=== PATIENT | female | born 1960 | race Caucasian/White ===

== ENCOUNTER → 2016-10-20 | Outpatient (CLI) | payer OTHER ==
[~2016-10-20] MED LIST: ISOVUE-370 76% 100ML VIAL (Q9967) As Ordered ONE
--- NOTE | 2016-10-20 19:16 | REP ---
CT study of the chest with IV contrast: History: Right upper lobe lung nodule. Report of chest x-ray from 10/09/2016 describes a right upper lobe lung nodule for which CT is recommended. This is 12 mm in diameter by report. CT contrast dose: 75 mL of Isovue-[address] findings: Overall, the lungs are somewhat hyperinflated. The CT study confirms the presence of a somewhat lobulated noncalcified right upper lobe pulmonary nodule. CT dimensions are 10 mm x 7 mm. There are appear to be air bronchograms along the inferior aspect of the nodule which is sometimes a feature of adenocarcinoma. There is mild biapical pleuroparenchymal scarring and there is bilateral upper lobe emphysematous change. No other pulmonary nodule is appreciated. There is no evidence of pleural or pericardial effusion. No hilar or mediastinal mass or adenopathy is seen. No adrenal lesion is observed on either side. There are clips in the gallbladder fossa. The visualized upper abdominal structures are otherwise unremarkable. No bony destructive lesion is appreciated. Impression: Noncalcified 10 mm right upper lobe pulmonary nodule. Consider PET/CT scanning and pulmonary medicine evaluation. Signed by Juan Canela MD 10/20/2016 07:29 P
== END ==
LOC: M RAD 16:44
PROVIDERS: ATTEND Surgery
DX: R91.1 Solitary pulmonary nodule (principal)

== ENCOUNTER → 2017-01-18 | Outpatient (CLI) | payer OTHER ==
--- NOTE | 2017-01-18 10:32 | REP ---
CT of the chest without IV contrast: Comparisons 10/20/2016 for follow up of air lobe lung nodule. On the study today there is a nodule in the right upper lobe on image 36 measuring 7 x 10 mm, unchanged in size shape or appearance. There are no other lung nodules or masses. There are no acute infiltrates or effusions. There are numerous tiny bulla throughout the lung hernandez bilaterally, predominately in the upper lobes, compatible with bullous emphysema, unchanged. There is no mediastinal adenopathy. The study is insensitive for hilar adenopathy in the absence of IV contrast. There is no axillary adenopathy. The unenhanced thoracic aorta is unremarkable. Cardiac size is normal. There is no pericardial effusion. The visualized upper abdominal contents are unremarkable. There is no adrenal mass. Impression: The patient's known right upper lobe lung nodule is stable and unchanged. There are findings compatible with bullous emphysema, predominately in the upper lobes with numerous tiny bulla throughout the lung hernandez. This is unchanged. Signed by Gurjit Frank MD 01/18/2017 10:24 A
== END ==
LOC: M RAD 09:03
PROVIDERS: ATTEND Internal Medicine Pulmonary Disease
DX: R91.1 Solitary pulmonary nodule (principal); J43.9 Emphysema, unspecified

== ENCOUNTER → 2017-02-14 | Outpatient (CLI) | payer OTHER ==
--- NOTE | 2017-02-19 10:15 | REP ---
PET/CT: HISTORY: Solitary pulmonary nodule right upper lobe. COMPARISONS: Comparison chest CT study January 18, 2017. TECHNIQUE: 50 minutes following the intravenous injection of a 9.4 mCi dose of F-18 FDG, three-dimensional PET scintigraphy is acquired from the skull base to the proximal thighs. Triplanar noncontrast CT scanning is acquired through the same anatomic range for attenuation correction, and image registration with scan parameters optimized to minimize radiation exposure to the patient. PET scintigraphy and CT datasets were fused and displayed on a workstation with multiplanar and projection display capability. PET/CT FINDINGS: The known right upper lobe nodule is not hypermetabolic. Maximum standard uptake value in this 10 mm right upper lobe pulmonary nodule is 0.4. No other abnormal hypermetabolic uptake is seen in the lungs. No hilar or mediastinal hypermetabolic uptake is appreciated. The head and neck soft tissues are unremarkable. In the abdomen and pelvis normal FDG distribution is seen. No abnormal hypermetabolic uptake is seen. IMPRESSION: The patient's known 10 mm right upper lobe nodule does not show hypermetabolic uptake. This does not completely exclude malignancy and continued follow-up is recommended. No other abnormal hypermetabolic uptake is seen. Signed by Juan Canela MD 02/19/2017 11:02 A
== END ==
LOC: M PLARAD 12:36
PROVIDERS: ATTEND Internal Medicine Pulmonary Disease
DX: R91.1 Solitary pulmonary nodule (principal)

== ENCOUNTER → 2017-08-06 | Outpatient (CLI) | payer OTHER ==
--- NOTE | 2017-08-06 13:54 | REP ---
CT of the chest without IV contrast for lung nodule. Followup: Comparisons are 03/18/2079 10/20/2016. The patient has a known right upper lobe lung nodule. The nodule is identified on the study today on image 36. Today this nodule measures 10 x 7 mm and is unchanged from both prior studies. This converts this lesion to a category 2A lesion with the probability of malignancy less than 1%. Follow-up annual chest CT is recommended. There are no other nodules or masses. There are no acute infiltrates or effusions. There is chronic stable biapical pleuroparenchymal scarring, unchanged. There are numerous small bulla throughout the lung hernandez, particularly in the upper lobes compatible with bullous emphysema, unchanged. There is no mediastinal adenopathy. No axillary adenopathy. The study is insensitive for hilar adenopathy in the absence of IV contrast. Thoracic aorta is unremarkable. Cardiac size normal. There is no pericardial effusion. Upper abdomen: There is no adrenal mass. The visualized portions of the unenhanced liver, pancreas and spleen are unremarkable. There are surgical clips in the gallbladder fossa. Impression: The known right upper lobe lung nodule is stable over the series of CT studies converting this nodule to a category 2A lesion. Annual follow-up chest CT is recommended. Bullous emphysema, unchanged. Signed by Gurjit Frank MD 08/06/2017 01:45 P
== END ==
LOC: M RAD 10:38
PROVIDERS: ATTEND Internal Medicine Pulmonary Disease
DX: R91.1 Solitary pulmonary nodule (principal); J43.9 Emphysema, unspecified

== ENCOUNTER → 2018-01-05 | Outpatient (CLI) | payer OTHER | LOC: M WUC 11:30 | DX: S29.012A Strain of muscle and tendon of back wall of thorax, initial encounter (principal); W18.30XA Fall on same level, unspecified, initial encounter; Y92.009 Unspecified place in unspecified non-institutional (private) residence as the place of occurrence of the external cause | CPT/HCPCS: 72072 ==

== ENCOUNTER → 2018-02-04 | Outpatient (CLI) | payer OTHER | LOC: M WUC 15:15 | DX: R05 Cough (principal); J84.9 Interstitial pulmonary disease, unspecified | CPT/HCPCS: 71046 ==

== ENCOUNTER → 2018-03-03 | Outpatient (REF) | payer OTHER | LOC: M LAB REF 17:39 | DX: R05 Cough (principal) | CPT/HCPCS: 87184 ==

== ENCOUNTER → 2018-03-17 | Outpatient (CLI) | payer OTHER ==
[2018-03-17 17:54] LABS: BASO % 0.3 % (0.0-1.0); EOS # 0.2 10^3/uL (0.0-0.50); EOS % 2.5 % (0.0-3.0); HEMATOCRIT 49.2 % (36.0-47.0); HEMOGLOBIN 15.4 g/dl (12.0-15.5); IMMATURE GRANULOCYTE % 0.3 % (0-3.0); LYMPH # 1.2 10^3/uL (1.5-4.5); LYMPH % 15.9 % (24.0-44.0); MEAN CORPUSCULAR HEMOGLOBIN 30.6 pg (27.0-33.0); MEAN CORPUSCULAR HGB CONC 31.3 g/dl (32.0-36.5); MEAN CORPUSCULAR VOLUME 97.8 fl (80.0-96.0); MONO # 0.5 10^3/uL (0.0-0.8); MONO % 6.2 % (0.0-5.0); NEUTROPHILS # 5.7 10^3/uL (1.8-7.7); NEUTROPHILS % 74.8 % (36.0-66.0); PLATELET COUNT, AUTOMATED 345 10^3/uL (150-450); RED BLOOD COUNT 5.03 10^6/uL (4.00-5.40); RED CELL DISTRIBUTION WIDTH 14.2 % (11.5-14.5); WHITE BLOOD COUNT 7.6 10^3/uL (4.0-10.0)
[2018-03-17 18:03] LABS: ALBUMIN 3.5 GM/DL (3.2-5.2); ALBUMIN/GLOBULIN RATIO 1.03 (1.00-1.93); ALKALINE PHOSPHATASE 101 U/L (45-117); ALT/SGPT 23 U/L (12-78); ANION GAP 5 MEQ/L (8-16); AST/SGOT 13 U/L (7-37); BILIRUBIN,TOTAL 0.2 MG/DL (0.2-1.0); BLOOD UREA NITROGEN 16 MG/DL (7-18); CALCIUM LEVEL 8.8 MG/DL (8.8-10.2); CARBON DIOXIDE LEVEL 33 MEQ/L (21-32); CHLORIDE LEVEL 105 MEQ/L (98-107); CHOLESTEROL LEVEL 240 MG/DL (<200); CHOLESTEROL RISK RATIO 4.363 (<5); CREATININE FOR GFR 0.59 MG/DL (0.55-1.30); GLOMERULAR FILTRATION RATE > 60.0 (>45); GLUCOSE, FASTING 94 MG/DL (70-100); HDL CHOLESTEROL 55 MG/DL (>40); LDL CHOLESTEROL 168.8 MG/DL (<100); NON-HDL-C 185 MG/DL; POTASSIUM SERUM 4.6 MEQ/L (3.5-5.1); SODIUM LEVEL 143 MEQ/L (136-145); TOTAL PROTEIN 6.9 GM/DL (6.4-8.2); TRIGLYCERIDES LEVEL 81 MG/DL (<150)
== END ==
LOC: M WUC 08:06
DX: I10 Essential (primary) hypertension (principal); E78.2 Mixed hyperlipidemia
CPT/HCPCS: 80053

== ENCOUNTER → 2018-09-04 | Outpatient (CLI) | payer OTHER | LOC: M RAD 12:27 | DX: R91.8 Other nonspecific abnormal finding of lung field (principal); J44.9 Chronic obstructive pulmonary disease, unspecified; J43.9 Emphysema, unspecified | CPT/HCPCS: 71250 ==

== ENCOUNTER → 2018-10-04 | Outpatient (CLI) | payer OTHER ==
--- NOTE | 2018-10-10 21:21 | ECHO ---
DATE OF PROCEDURE: 10/04/2018 REFERRING PHYSICIAN: Dr. Michelle Jeong INDICATION: Dyspnea. HEIGHT: 160 cm WEIGHT: 64.9 kg 2D MEASUREMENTS: LVOT: 1.7 cm Aortic root: 3.0 cm Left ventricle diastole: 4.1 cm Ventricular septum: 1.14 cm Posterior wall: 1.06 cm Inferior vena cava: 1.7 cm DOPPLER MEASUREMENTS: Aortic valve velocity: 120 cm/s LVOT velocity: 123 cm/s LVOT VTI: 28.6 cm Very mild mitral regurgitation. Mitral E velocity: 73.7 cm/s Mitral A velocity: 89.2 cm/s Mitral deceleration time: 255 ms Very mild mitral regurgitation. Estimated right ventricle systolic pressure: 32-37 mmHg assuming a right atrial pressure of 5-10 mmHg. Pulmonary artery systolic pressure: 36 mmHg by pulmonary acceleration time method. MITRAL ANNULAR TISSUE DOPPLER: E prime septal: 6.4 cm/s E prime lateral: 8.3 cm/s DESCRIPTION: Rhythm was sinus. This was a moderately technically difficult echocardiogram. No pericardial effusion. This was a 2D, M-mode, color flow Doppler and pulse wave Doppler examination and included mitral annular tissue Doppler. CONCLUSIONS: 1. Suggestive of mild elevation of pulmonary artery systolic pressure and estimated right ventricle systolic pressure. Normal right ventricle size. Mild right ventricle hypertrophy. Normal right ventricular (RV) systolic function. 2. Normal left ventricle internal dimensions and wall thickness. Normal regional left ventricular (LV) wall motion and wall thickening. Normal LV systolic function. Left ventricular ejection fraction (LVEF) 70-75% by visual estimate. Grade 1 LV diastolic dysfunction. 3. Otherwise normal appearing echocardiogram Doppler.
== END ==
LOC: M CARPUL 08:10
PROVIDERS: ATTEND Internal Medicine Pulmonary Disease
DX: R06.00 Dyspnea, unspecified (principal)

== ENCOUNTER → 2018-12-13 | Outpatient (CLI) | payer OTHER ==
--- NOTE | 2018-12-13 11:13 | REP ---
Clinical: Acute upper respiratory tract infection . Comparison: 02/04/2018 . Technique: PA and lateral. Findings: The mediastinum and cardiac silhouette are normal. The lung hernandez are clear and without acute consolidation, effusion, or pneumothorax. The skeletal structures are intact and normal. Impression: 1. No focal consolidation or effusion. Electronically Signed by Prashanth Carranza MD 12/13/2018 11:05 A
== END ==
LOC: M WUC 10:36
PROVIDERS: ATTEND Internal Medicine Pulmonary Disease
DX: J06.9 Acute upper respiratory infection, unspecified (principal)

== ENCOUNTER → 2019-02-04 | Outpatient (REF) | payer OTHER ==
[2019-02-04 19:44] LABS: ALBUMIN 3.1 GM/DL (3.2-5.2); ALT/SGPT 26 U/L (12-78); BILIRUBIN,TOTAL 0.2 MG/DL (0.2-1.0); BLOOD UREA NITROGEN 16 MG/DL (7-18); CALCIUM LEVEL 8.5 MG/DL (8.8-10.2); CARBON DIOXIDE LEVEL 36 MEQ/L (21-32); CHLORIDE LEVEL 100 MEQ/L (98-107); CREATININE FOR GFR 0.55 MG/DL (0.55-1.30); FREE T4 0.83 NG/DL (0.76-1.46); GLOMERULAR FILTRATION RATE > 60.0 (>45); GLUCOSE, FASTING 83 MG/DL (70-100); POTASSIUM SERUM 3.8 MEQ/L (3.5-5.1); SODIUM LEVEL 142 MEQ/L (136-145); TOTAL PROTEIN 6.4 GM/DL (6.4-8.2)
[2019-02-04 19:46] LABS: PTH INTACT 62.8 PG/ML (18.5-88.0)
== END ==
LOC: M SFHCPLAZ 15:52
PROVIDERS: ATTEND Physician Assistant Medical
DX: E78.2 Mixed hyperlipidemia (principal); E55.9 Vitamin D deficiency, unspecified; Z83.49 Family history of other endocrine, nutritional and metabolic diseases; Z12.11 Encounter for screening for malignant neoplasm of colon

== ENCOUNTER → 2019-02-16 | Outpatient (CLI) | payer OTHER ==
--- NOTE | 2019-02-17 01:12 | REP ---
Clinical: Cough and dyspnea . Comparison: 12/13/2018 . Technique: PA and lateral. Findings: The mediastinum and cardiac silhouette are normal. The lung hernandez are clear and without acute consolidation, effusion, or pneumothorax. The skeletal structures are intact and normal. Impression: 1. No acute cardiopulmonary process. Electronically Signed by Prashanth Carranza MD 02/17/2019 01:03 A
== END ==
LOC: M WUC 08:06
PROVIDERS: ATTEND Internal Medicine Pulmonary Disease
DX: R06.00 Dyspnea, unspecified (principal)

== ENCOUNTER → 2019-06-06 | Outpatient (REF) | payer OTHER ==
[2019-06-06 12:13] LABS: BLOOD UREA NITROGEN 12 MG/DL (7-18); GLUCOSE, FASTING 104 MG/DL (70-100)
[2019-06-06 12:14] LABS: ALBUMIN 3.5 GM/DL (3.2-5.2); ALT/SGPT 26 U/L (12-78); BILIRUBIN,TOTAL 0.4 MG/DL (0.2-1.0); CARBON DIOXIDE LEVEL 35 MEQ/L (21-32); CHLORIDE LEVEL 106 MEQ/L (98-107); CHOLESTEROL LEVEL 244 MG/DL (<200); CHOLESTEROL RISK RATIO 3.588 (<5); CREATININE FOR GFR 0.59 MG/DL (0.55-1.30); GLOMERULAR FILTRATION RATE > 60.0 (>45); HDL CHOLESTEROL 68 MG/DL (>40); LDL CHOLESTEROL 155 MG/DL (<100); NON-HDL-C 176 MG/DL; POTASSIUM SERUM 4.2 MEQ/L (3.5-5.1); SODIUM LEVEL 143 MEQ/L (136-145); TOTAL PROTEIN 6.9 GM/DL (6.4-8.2); TRIGLYCERIDES LEVEL 105 MG/DL (<150)
== END ==
LOC: M SFHCPLAZ 08:57
PROVIDERS: ATTEND Physician Assistant Medical
DX: E78.2 Mixed hyperlipidemia (principal)

== ENCOUNTER → 2019-09-05 | Outpatient (CLI) | payer OTHER ==
--- NOTE | 2019-09-05 13:26 | REP ---
CT chest with IV contrast: History: Solitary pulmonary nodule. Comparison chest CTs are reviewed, the most recent which is from September 04, 2018. The most remote is dated October 20, 2016. CT findings: A 1.1 cm solid stable right upper lobe nodule is visible on page 40 of 114 in series 201 of today's study. This is unchanged dating back to October of 2016 and is consistent with a benign granulomatous nodule. There is a linear area of scarring in the left upper lobe again noted which is unchanged since the study dated June 12, 2018. No progressive change is seen here. There are bilateral apical pleuroparenchymal scarring changes and there are bilateral upper lobe emphysematous changes which are stable as well. No new pulmonary nodule or mass lesion is seen. No new infiltrate is observed. Minimal vascular calcification is observed. No hilar or mediastinal mass or adenopathy is seen. No pleural or pericardial effusion is seen. There is no evidence of adrenal abnormality. No bony destructive lesion is seen. Impression: Stable chest CT findings. Stable area of linear fibrosis left upper lobe. Benign stable 1.1 cm right upper lobe nodule. Emphysematous changes. Electronically Signed by Juan Canela MD 09/05/2019 02:13 P
== END ==
LOC: M RAD 09:55
PROVIDERS: ATTEND Physician Assistant Medical
DX: R91.1 Solitary pulmonary nodule (principal)
CPT/HCPCS: 71260; Q9967

== ENCOUNTER → 2019-10-01 | Outpatient (REF) | payer MEDICAID, OTHER ==
[2019-10-01 10:21] LABS: ALBUMIN 3.8 GM/DL (3.2-5.2); ALT/SGPT 22 U/L (12-78); BILIRUBIN,TOTAL 0.3 MG/DL (0.2-1.0); BLOOD UREA NITROGEN 17 MG/DL (7-18); CALCIUM LEVEL 9.3 MG/DL (8.8-10.2); CARBON DIOXIDE LEVEL 35 MEQ/L (21-32); CHLORIDE LEVEL 100 MEQ/L (98-107); CREATININE FOR GFR 0.59 MG/DL (0.55-1.30); GLOMERULAR FILTRATION RATE > 60.0 (>45); GLUCOSE, FASTING 100 MG/DL (70-100); POTASSIUM SERUM 4.1 MEQ/L (3.5-5.1); SODIUM LEVEL 139 MEQ/L (136-145); TOTAL PROTEIN 7.6 GM/DL (6.4-8.2)
[2019-10-01 13:24] LABS: PTH INTACT 51.2 PG/ML (18.5-88.0)
== END ==
LOC: M SFHCPLAZ 08:27
PROVIDERS: ATTEND Physician Assistant Medical
DX: E55.9 Vitamin D deficiency, unspecified (principal)

== ENCOUNTER → 2019-12-09 | Outpatient (CLI) | payer OTHER ==
[2019-12-09 07:21] LABS: ALBUMIN 3.5 GM/DL (3.2-5.2); ALT/SGPT 18 U/L (12-78); BILIRUBIN,TOTAL 0.2 MG/DL (0.2-1.0); BLOOD UREA NITROGEN 20 MG/DL (7-18); CALCIUM LEVEL 8.8 MG/DL (8.8-10.2); CARBON DIOXIDE LEVEL 34 MEQ/L (21-32); CHLORIDE LEVEL 105 MEQ/L (98-107); CREATININE FOR GFR 0.65 MG/DL (0.55-1.30); GLOMERULAR FILTRATION RATE > 60.0 (>45); GLUCOSE, FASTING 106 MG/DL (70-100); POTASSIUM SERUM 4.4 MEQ/L (3.5-5.1); SODIUM LEVEL 142 MEQ/L (136-145); TOTAL PROTEIN 6.8 GM/DL (6.4-8.2)
[2019-12-09 07:23] LABS: HEMOGLOBIN A1c 6.6 %
== END ==
LOC: M LAB 06:16
PROVIDERS: ATTEND Ophthalmology
DX: H53.8 Other visual disturbances (principal)

== ENCOUNTER → 2020-03-02 | Outpatient (REF) | payer OTHER | LOC: M LAB REF 16:43 | PROVIDERS: ATTEND Internal Medicine Pulmonary Disease | DX: J47.9 Bronchiectasis, uncomplicated (principal) ==

== ENCOUNTER 2020-03-24 08:18 | Emergency (ER) | payer MEDICAID, OTHER ==
[~2020-03-24] VITALS: Ht 160 cm; Wt 67.3 kg
[2020-03-24] MEDS ORDERED: LOSA50TA88 PO (08:37)
[2020-03-24] MEDS ORDERED: ALBU83IN INH (08:37)
[2020-03-24] MEDS ORDERED: PERF20NE2 INH (08:37)
[2020-03-24] MEDS ORDERED: ALBU8.5H INH (08:37)
[2020-03-24] MEDS ORDERED: SULF1TAB93 PO (08:37)
[2020-03-24] MEDS ORDERED: DILT30TA PO (08:37)
[2020-03-24] MEDS ORDERED: XALA0.007 OU (08:37)
[2020-03-24] MEDS ORDERED: FLUTISP INH (08:37)
[2020-03-24] MEDS ORDERED: SPIR12.9 INH (08:37)
[2020-03-24] MEDS ORDERED: AZIT-12 PO (08:37)
[2020-03-24] MEDS ORDERED: BUDE2SUS3 INH (08:37)
[2020-03-24] MEDS ORDERED: HYDR12.55 PO (08:37)
[2020-03-24] MEDS ORDERED: methylPREDNISolone INJ 125 MG/2 ML VIAL (J2930) IV ONE (09:00)
[2020-03-24] MEDS: COMBIVENT RESPIMAT 100-20MCG INHALER 4GM INH SCH ×3 (09:20→09:40)
[2020-03-24 09:21] LABS: BASO % 0.2 % (0.0-1.0); EOS % 0.1 % (0.0-3.0); HEMATOCRIT 46.6 % (36.0-47.0); LYMPH # 1.4 10^3/uL (1.5-5.0); LYMPH % 15.9 % (24.0-44.0); MEAN CORPUSCULAR HEMOGLOBIN 31.4 pg (27.0-33.0); MEAN CORPUSCULAR HGB CONC 32.2 g/dl (32.0-36.5); MEAN CORPUSCULAR VOLUME 97.5 fl (80.0-96.0); MONO # 0.4 10^3/uL (0.0-0.8); MONO % 4.5 % (0.0-5.0); NEUTROPHILS # 6.9 10^3/uL (1.5-8.5); NEUTROPHILS % 79.2 % (36.0-66.0); PLATELET COUNT, AUTOMATED 247 10^3/uL (150-450); RED BLOOD COUNT 4.78 10^6/uL (4.00-5.40); WHITE BLOOD COUNT 8.7 10^3/uL (4.0-10.0)
--- NOTE | 2020-03-24 09:41 | REP ---
CHEST, SINGLE VIEW: Single view of the chest is performed. There is no acute infiltrate. There is mild biapical and pleural parenchymal scarring. There is a stable right upper lobe nodule. The heart is normal in size and the mediastinal silhouette is unremarkable. IMPRESSION: Stable chronic findings with no acute infiltrate. Electronically Signed by Gurjit Saab MD 03/25/2020 10:26 A
[2020-03-24 10:02] LABS: ALBUMIN 3.3 GM/DL (3.2-5.2); ALT/SGPT 22 U/L (12-78); BILIRUBIN,DIRECT < 0.1 MG/DL (0.0-0.2); BILIRUBIN,TOTAL 0.2 MG/DL (0.2-1.0); NT-PRO BNP 118 PG/ML (<125); TOTAL PROTEIN 6.9 GM/DL (6.4-8.2)
[2020-03-24 10:30] LABS: BLOOD UREA NITROGEN 11 MG/DL (7-18); CALCIUM LEVEL 9.6 MG/DL (8.8-10.2); CARBON DIOXIDE LEVEL 38 MEQ/L (21-32); CHLORIDE LEVEL 94 MEQ/L (98-107); CREATININE FOR GFR 0.75 MG/DL (0.55-1.30); GLOMERULAR FILTRATION RATE > 60.0 (>45); GLUCOSE, FASTING 109 MG/DL (70-100); POTASSIUM SERUM 3.5 MEQ/L (3.5-5.1); SODIUM LEVEL 136 MEQ/L (136-145)
[2020-03-24 10:50] VITALS: O2SAT 97
[2020-03-24] MEDS ORDERED: PRED10TA2 PO (11:19)
[2020-03-24 11:27] VITALS: BP 131/61
--- NOTE | 2020-03-25 21:16 | ECGEPIP ---
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
== END 2020-03-24 11:32 | disposition home or self-care (01) ==
LOC: M ED 08:18
DX: J44.1 Chronic obstructive pulmonary disease with (acute) exacerbation (principal); I10 Essential (primary) hypertension; I45.10 Unspecified right bundle-branch block; F17.200 Nicotine dependence, unspecified, uncomplicated; R91.1 Solitary pulmonary nodule; Z79.51 Long term (current) use of inhaled steroids; Z79.899 Other long term (current) drug therapy; Z88.5 Allergy status to narcotic agent
CPT/HCPCS: 36600; 71045; 80048; 80076; 82803; 83605; 83880; 84443; 85025; 87040; 93005; 93041; 94640; 94760; 96374; 99285; J2930

== ENCOUNTER → 2020-04-23 | Outpatient (REF) | payer OTHER, MEDICAID ==
[~2020-04-23] MED LIST changes: +ALBU8.5H INH; +ALBU83IN INH; +AZIT-12 PO; +BUDE2SUS3 INH; +BUPR150T5; +COMBAER6; +DILT30TA PO; +FLUTISP INH; +HYDR12.55 PO; -ISOVUE-370 76% 100ML VIAL (Q9967) As Ordered ONE; +LORAPOW30; +LOSA50TA5 PO; +LOSA50TA88 PO; +PERF20NE2 INH; +PRED10TA2 PO; +PRED20TA PO; +SPIR12.9 INH; +SULF1TAB93 PO; +VITA50005 PO; +XALA0.007 OU
[2020-04-23 11:20] LABS: BASO % 0.2 % (0.0-1.0); EOS % 0.2 % (0.0-3.0); HEMATOCRIT 46.3 % (36.0-47.0); HEMOGLOBIN 14.6 g/dl (12.0-15.5); LYMPH # 1.7 10^3/uL (1.5-5.0); LYMPH % 21.1 % (24.0-44.0); MEAN CORPUSCULAR HEMOGLOBIN 30.8 pg (27.0-33.0); MEAN CORPUSCULAR HGB CONC 31.5 g/dl (32.0-36.5); MEAN CORPUSCULAR VOLUME 97.7 fl (80.0-96.0); MONO # 0.5 10^3/uL (0.0-0.8); MONO % 6.7 % (0.0-5.0); NEUTROPHILS # 5.8 10^3/uL (1.5-8.5); NEUTROPHILS % 71.6 % (36.0-66.0); PLATELET COUNT, AUTOMATED 356 10^3/uL (150-450); RED BLOOD COUNT 4.74 10^6/uL (4.00-5.40); WHITE BLOOD COUNT 8.1 10^3/uL (4.0-10.0)
[2020-04-23 11:51] LABS: ALBUMIN 3.5 GM/DL (3.2-5.2); ALT/SGPT 24 U/L (12-78); BILIRUBIN,TOTAL 0.2 MG/DL (0.2-1.0); BLOOD UREA NITROGEN 15 MG/DL (7-18); CALCIUM LEVEL 9.4 MG/DL (8.8-10.2); CARBON DIOXIDE LEVEL 39 MEQ/L (21-32); CHLORIDE LEVEL 94 MEQ/L (98-107); CHOLESTEROL LEVEL 269 MG/DL (<200); CHOLESTEROL RISK RATIO 4.014 (<5); CPK CREATINE PHOSPHOKINASE 91 U/L (26-192); GLOMERULAR FILTRATION RATE > 60.0 (>45); GLUCOSE, FASTING 107 MG/DL (70-100); HDL CHOLESTEROL 67 MG/DL (>40); LDL CHOLESTEROL 189 MG/DL (<100); NON-HDL-C 202 MG/DL; POTASSIUM SERUM 3.5 MEQ/L (3.5-5.1); SODIUM LEVEL 136 MEQ/L (136-145); TRIGLYCERIDES LEVEL 67 MG/DL (<150)
[2020-04-23 11:52] LABS: TOTAL 25(OH) VITAMIN D 49.7 NG/ML (30.0-100.0)
[2020-04-23 11:53] LABS: PTH INTACT 48.3 PG/ML (18.5-88.0)
== END ==
LOC: M PLALAB 08:53
PROVIDERS: ATTEND Physician Assistant Medical
DX: I10 Essential (primary) hypertension (principal); E78.2 Mixed hyperlipidemia; E55.9 Vitamin D deficiency, unspecified

== ENCOUNTER 2020-06-22 01:32 | Emergency (ER) | payer OTHER, MEDICAID ==
[~2020-06-22] VITALS: Ht 160 cm; Wt 69.1 kg
[~2020-06-22 01:32] MED LIST changes: -BUPR150T5; -COMBAER6; -LORAPOW30; -LOSA50TA5 PO; -PRED20TA PO; -VITA50005 PO
[2020-06-22 02:09] LABS: BASO % 0.2 % (0.0-1.0); EOS % 0.1 % (0.0-3.0); HEMATOCRIT 42.2 % (36.0-47.0); HEMOGLOBIN 13.5 g/dl (12.0-15.5); LYMPH # 2.8 10^3/uL (1.5-5.0); LYMPH % 25.4 % (24.0-44.0); MEAN CORPUSCULAR HEMOGLOBIN 31.1 pg (27.0-33.0); MEAN CORPUSCULAR VOLUME 97.2 fl (80.0-96.0); MONO # 0.7 10^3/uL (0.0-0.8); MONO % 6.7 % (0.0-5.0); NEUTROPHILS # 7.4 10^3/uL (1.5-8.5); NEUTROPHILS % 67.3 % (36.0-66.0); PLATELET COUNT, AUTOMATED 337 10^3/uL (150-450); RED BLOOD COUNT 4.34 10^6/uL (4.00-5.40); WHITE BLOOD COUNT 10.9 10^3/uL (4.0-10.0)
[2020-06-22] MEDS ORDERED: VITA50005 PO (02:10)
--- NOTE | 2020-06-22 02:38 | REPVR ---
PROCEDURE INFORMATION: Exam: XR Chest, 1 View Exam date and time: 06/22/2020 2:12 AM Age: 60 years old Clinical indication: Cough and dyspnea TECHNIQUE: Imaging protocol: XR of the chest Views: 1 view. COMPARISON: 1. CR PORTABLE CHEST X-RAY 03/24/2020 9:[address] Chest with contrast 09/05/2019 10:29:32 AM FINDINGS: Lungs: There is a 1.1 cm pulmonary nodule in the right upper lobe, which is stable compared to the prior CT chest on 09/05/2019 and chest x-ray on 03/24/2020. Pleural space: Unremarkable. No pleural effusion or pneumothorax is identified. Heart/Mediastinum: Unremarkable. No cardiomegaly. Bones/joints: Unremarkable. IMPRESSION: 1. No radiographic evidence for an acute cardiopulmonary process. 2. 1.1 cm pulmonary nodule in the right upper lobe, which is stable compared to the prior CT chest on 09/05/2019 and chest x-ray on 03/24/2020. Electronically signed by: Alex Darnell On 06/22/2020 02:37:23 AM
[2020-06-22 02:41] LABS: ALBUMIN 3.5 GM/DL (3.2-5.2); ALT/SGPT 39 U/L (12-78); BILIRUBIN,DIRECT < 0.1 MG/DL (0.0-0.2); BILIRUBIN,TOTAL 0.2 MG/DL (0.2-1.0); BLOOD UREA NITROGEN 21 MG/DL (7-18); CALCIUM LEVEL 9.3 MG/DL (8.8-10.2); CARBON DIOXIDE LEVEL 41 MEQ/L (21-32); CHLORIDE LEVEL 94 MEQ/L (98-107); CK-MB VALUE MASS 2.3 NG/ML (<3.6); CPK CREATINE PHOSPHOKINASE 62 U/L (26-192); CREATININE FOR GFR 0.62 MG/DL (0.55-1.30); GLOMERULAR FILTRATION RATE > 60.0 (>45); GLUCOSE, FASTING 98 MG/DL (70-100); MB/CK RELATIVE INDEX 3.71 (< OR =4); POTASSIUM SERUM 3.6 MEQ/L (3.5-5.1); SODIUM LEVEL 136 MEQ/L (136-145); TOTAL PROTEIN 6.9 GM/DL (6.4-8.2); TROPONIN I < 0.02 NG/ML (< 0.10)
[2020-06-22] MEDS ORDERED: methylPREDNISolone 125MG 2ML VIAL IV ONE (03:15)
[2020-06-22] MEDS ORDERED: PRED10TA2 PO (03:18)
[2020-06-22 03:29] VITALS: BP 154/67
--- NOTE | 2020-06-23 12:41 | ED PDOC ---
Post-Departure Follow-Up cxr faxed to abimael oconnor for fu Roxy Dowell MD Jun 23, 2020 12:40
--- NOTE | 2020-06-28 10:44 | ECGEPIP ---
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
== END 2020-06-22 03:30 | disposition home or self-care (01) ==
LOC: M ED 01:32
DX: J44.1 Chronic obstructive pulmonary disease with (acute) exacerbation (principal); R91.1 Solitary pulmonary nodule; R94.31 Abnormal electrocardiogram [ECG] [EKG]; I25.10 Atherosclerotic heart disease of native coronary artery without angina pectoris; I11.9 Hypertensive heart disease without heart failure; F17.210 Nicotine dependence, cigarettes, uncomplicated; Z88.6 Allergy status to analgesic agent; Z79.51 Long term (current) use of inhaled steroids; Z79.899 Other long term (current) drug therapy
CPT/HCPCS: 71045; 80048; 80076; 82550; 82553; 85025; 93005; 93041; 94760; 96374; 99284; J2930

== ENCOUNTER 2020-06-25 19:36 | Emergency (ER) | payer OTHER, MEDICAID ==
[~2020-06-25] VITALS: Ht 160 cm; Wt 69.1 kg
[~2020-06-25 19:36] MED LIST changes: +VITA50005 PO
[2020-06-25] MEDS ORDERED: COMBAER6 (19:55)
[2020-06-25 20:20] LABS: BASO % 0.2 % (0.0-1.0); HEMATOCRIT 43.7 % (36.0-47.0); HEMOGLOBIN 13.8 g/dl (12.0-15.5); LYMPH # 1.7 10^3/uL (1.5-5.0); LYMPH % 16.7 % (24.0-44.0); MEAN CORPUSCULAR HEMOGLOBIN 30.8 pg (27.0-33.0); MEAN CORPUSCULAR HGB CONC 31.6 g/dl (32.0-36.5); MEAN CORPUSCULAR VOLUME 97.5 fl (80.0-96.0); MONO # 0.7 10^3/uL (0.0-0.8); MONO % 6.3 % (0.0-5.0); NEUTROPHILS # 7.9 10^3/uL (1.5-8.5); PLATELET COUNT, AUTOMATED 358 10^3/uL (150-450); RED BLOOD COUNT 4.48 10^6/uL (4.00-5.40); WHITE BLOOD COUNT 10.4 10^3/uL (4.0-10.0)
[2020-06-25] MEDS: IPRATROPIUM 0.5MG/ALBUTEROL 2.5MG INH SOL UD 3ML (DUONEB) NEB PRN ×3 (20:28→21:55)
[2020-06-25 20:50] LABS: BLOOD UREA NITROGEN 21 MG/DL (7-18); CALCIUM LEVEL 9.8 MG/DL (8.8-10.2); CARBON DIOXIDE LEVEL 41 MEQ/L (21-32); CHLORIDE LEVEL 96 MEQ/L (98-107); CREATININE FOR GFR 0.62 MG/DL (0.55-1.30); GLOMERULAR FILTRATION RATE > 60.0 (>45); GLUCOSE, FASTING 114 MG/DL (70-100); POTASSIUM SERUM 4.1 MEQ/L (3.5-5.1); SODIUM LEVEL 138 MEQ/L (136-145)
[2020-06-25] MEDS ORDERED: dexameTHASONE 20MG/5ML VIAL (J1100 PER 1MG) IV ONE (21:00)
[2020-06-25 22:29] VITALS: O2SAT 96
[2020-06-25 23:29] VITALS: BP 144/85
--- NOTE | 2020-07-14 07:51 | REP ---
PORTABLE CHEST X-RAY: CLINICAL: Shortness of breath. COMPARISON: 06/22/20 FINDINGS: Mediastinum and cardiac silhouette are normal. Lung hernandez are clear. No focal consolidation, effusion or pneumothorax. Skeletal structures are intact. IMPRESSION: No acute cardiopulmonary process or focal consolidation. MTDD
== END 2020-06-25 23:31 | disposition home or self-care (01) ==
LOC: M ED 19:36
DX: J44.1 Chronic obstructive pulmonary disease with (acute) exacerbation (principal); J96.11 Chronic respiratory failure with hypoxia; Z99.81 Dependence on supplemental oxygen; I10 Essential (primary) hypertension; E78.5 Hyperlipidemia, unspecified; R91.1 Solitary pulmonary nodule; G47.30 Sleep apnea, unspecified; F17.210 Nicotine dependence, cigarettes, uncomplicated
CPT/HCPCS: 36415; 71045; 80048; 83605; 85025; 87040; 87077; 87186; 96374; 99284; J1100

== ENCOUNTER 2020-07-04 20:50 | Emergency (ER) | payer OTHER, MEDICAID ==
[~2020-07-04] VITALS: Ht 160 cm; Wt 69.1 kg
[~2020-07-04 20:50] MED LIST changes: +COMBAER6
[2020-07-04] MEDS ORDERED: COMBIVENT RESPIMAT 100-20MCG INHALER 4GM INH ONE (21:30)
[2020-07-04 21:39] LABS: ABG BASE EXCESS 8.6 (-2.0-2.0); ABG HCO3 35.5 MEQ/L (22.0-26.0); ABG O2 SATURATION 97.8 % (95.0-99.0); ABG PARTIAL PRESSURE CO2 58.2 mmHg (35.0-45.0); ABG PARTIAL PRESSURE O2 100.4 mmHg (75.0-100.0); ABG STANDARD HCO3 32.4 MEQ/L (22.0-26.0); ABG TOTAL CO2 37.3 MEQ/L (23.0-31.0); ABG pH (ARTERIAL) 7.403 UNITS (7.350-7.450)
[2020-07-04 21:44] LABS: BASO % 0.1 % (0.0-1.0); EOS % 0.1 % (0.0-3.0); HEMOGLOBIN 12.8 g/dl (12.0-15.5); LYMPH # 2.5 10^3/uL (1.5-5.0); LYMPH % 19.2 % (24.0-44.0); MEAN CORPUSCULAR HEMOGLOBIN 31.1 pg (27.0-33.0); MEAN CORPUSCULAR VOLUME 97.1 fl (80.0-96.0); MONO # 0.7 10^3/uL (0.0-0.8); NEUTROPHILS # 9.9 10^3/uL (1.5-8.5); PLATELET COUNT, AUTOMATED 254 10^3/uL (150-450); RED BLOOD COUNT 4.12 10^6/uL (4.00-5.40); WHITE BLOOD COUNT 13.2 10^3/uL (4.0-10.0)
[2020-07-04 21:53] LABS: INR 0.83; PROTHROMBIN TIME 11.5 SECONDS (12.5-14.3)
[2020-07-04 22:18] LABS: ALBUMIN 3.3 GM/DL (3.2-5.2); ALT/SGPT 30 U/L (12-78); BILIRUBIN,DIRECT < 0.1 MG/DL (0.0-0.2); BLOOD UREA NITROGEN 25 MG/DL (7-18); CALCIUM LEVEL 9.4 MG/DL (8.8-10.2); CARBON DIOXIDE LEVEL 40 MEQ/L (21-32); CHLORIDE LEVEL 95 MEQ/L (98-107); CK-MB VALUE MASS 2.6 NG/ML (<3.6); CPK CREATINE PHOSPHOKINASE 68 U/L (26-192); GLOMERULAR FILTRATION RATE > 60.0 (>45); GLUCOSE, FASTING 107 MG/DL (70-100); MB/CK RELATIVE INDEX 3.82 (< OR =4); NT-PRO BNP 109 PG/ML (<125); SODIUM LEVEL 135 MEQ/L (136-145); TOTAL PROTEIN 6.7 GM/DL (6.4-8.2); TROPONIN I < 0.02 NG/ML (< 0.10)
[2020-07-04 23:09] LABS: BILIRUBIN,TOTAL 0.2 MG/DL (0.2-1.0)
--- NOTE | 2020-07-04 23:28 | REPVR ---
PROCEDURE INFORMATION: Exam: XR Chest, 2 Views Exam date and time: 07/04/2020 11:11 PM Age: 60 years old Clinical indication: Cough and dyspnea; Additional info: Dyspnea/cough TECHNIQUE: Imaging protocol: XR of the chest Views: 2 views. COMPARISON: CR Chest, 1 view 06/25/2020 8:59 PM FINDINGS: Lungs: Degree of inflation of the lungs is normal. No evidence of pulmonary edema. No focal airspace process. No concerning parenchymal lung mass. Pleural space: No pleural effusion or pneumothorax. Heart/Mediastinum: Cardiac silhouette appears normal. No mediastinal adenopathy or hilar mass. Bones/joints: Osseous structures show no acute or concerning abnormality. IMPRESSION: No active or focal cardiopulmonary process. Electronically signed by: Grabiel Rowell On 07/04/2020 23:27:33 PM
[2020-07-04] MEDS ORDERED: IPRATROPIUM 0.5MG/ALBUTEROL 2.5MG INH SOL UD 3ML (DUONEB) NEB ONE (23:30)
[2020-07-05] MEDS ORDERED: PRED20TA PO (00:10)
[2020-07-05 00:36] VITALS: BP 125/70
--- NOTE | 2020-07-05 20:24 | ECGEPIP ---
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
[2020-07-06] MEDS ORDERED: LOSA50TA5 PO (14:47)
== END 2020-07-05 00:36 | disposition home or self-care (01) ==
LOC: M ED 20:50
DX: J44.1 Chronic obstructive pulmonary disease with (acute) exacerbation (principal); I10 Essential (primary) hypertension; E78.5 Hyperlipidemia, unspecified; E55.9 Vitamin D deficiency, unspecified; M81.0 Age-related osteoporosis without current pathological fracture; H40.9 Unspecified glaucoma; J30.2 Other seasonal allergic rhinitis; Z88.6 Allergy status to analgesic agent; Z79.51 Long term (current) use of inhaled steroids; Z79.899 Other long term (current) drug therapy

== ENCOUNTER 2020-07-06 14:30 | Emergency (ER) | payer MEDICAID, OTHER ==
[~2020-07-06] VITALS: Ht 160 cm; Wt 72.4 kg
[~2020-07-06 14:30] MED LIST changes: +PRED20TA PO
[2020-07-06] MEDS ORDERED: LOSA50TA5 PO (14:47)
[2020-07-06 15:04] LABS: ABG BASE EXCESS 5.7 (-2.0-2.0); ABG HCO3 32.1 MEQ/L (22.0-26.0); ABG O2 SATURATION 98.3 % (95.0-99.0); ABG PARTIAL PRESSURE CO2 53.7 mmHg (35.0-45.0); ABG PARTIAL PRESSURE O2 106.5 mmHg (75.0-100.0); ABG STANDARD HCO3 29.7 MEQ/L (22.0-26.0); ABG TOTAL CO2 33.8 MEQ/L (23.0-31.0); ABG pH (ARTERIAL) 7.395 UNITS (7.350-7.450)
[2020-07-06 15:06] LABS: BASO % 0.1 % (0.0-1.0); HEMATOCRIT 44.1 % (36.0-47.0); HEMOGLOBIN 14.1 g/dl (12.0-15.5); LYMPH # 3.7 10^3/uL (1.5-5.0); LYMPH % 24.3 % (24.0-44.0); MEAN CORPUSCULAR HEMOGLOBIN 31.2 pg (27.0-33.0); MEAN CORPUSCULAR VOLUME 97.6 fl (80.0-96.0); MONO # 0.8 10^3/uL (0.0-0.8); MONO % 5.5 % (0.0-5.0); NEUTROPHILS # 10.6 10^3/uL (1.5-8.5); NEUTROPHILS % 69.8 % (36.0-66.0); PLATELET COUNT, AUTOMATED 261 10^3/uL (150-450); RED BLOOD COUNT 4.52 10^6/uL (4.00-5.40); WHITE BLOOD COUNT 15.2 10^3/uL (4.0-10.0)
--- NOTE | 2020-07-06 15:16 | REPVR ---
PROCEDURE INFORMATION: Exam: XR Chest, 1 View Exam date and time: 07/06/2020 3:05 PM Age: 60 years old Clinical indication: Cough and dyspnea and shortness of breath; Additional info: Dyspnea/cough TECHNIQUE: Imaging protocol: XR of the chest Views: 1 view. COMPARISON: 1. CR Chest, 2 view PA, Lat 07/04/2020 10:[address] Chest with contrast 09/05/2019 10:29:32 AM FINDINGS: Lungs: 10 mm nodule in the right mid lung, unchanged since the prior CT. Emphysematous changes. Subpleural scarring in the lung apices. No focal consolidation. Pleural space: Unremarkable. No pleural effusion. No pneumothorax. Heart/Mediastinum: Unremarkable. No cardiomegaly. Bones/joints: Scoliotic curvature of the spine. IMPRESSION: No acute cardiopulmonary abnormality. Electronically signed by: Ijeoma Farrell On 07/06/2020 15:16:47 PM
[2020-07-06 15:37] LABS: ALBUMIN 3.2 GM/DL (3.2-5.2); ALT/SGPT 30 U/L (12-78); BILIRUBIN,DIRECT < 0.1 MG/DL (0.0-0.2); BILIRUBIN,TOTAL 0.1 MG/DL (0.2-1.0); BLOOD UREA NITROGEN 22 MG/DL (7-18); CALCIUM LEVEL 9.2 MG/DL (8.8-10.2); CARBON DIOXIDE LEVEL 37 MEQ/L (21-32); CHLORIDE LEVEL 98 MEQ/L (98-107); CK-MB VALUE MASS 3.5 NG/ML (<3.6); CPK CREATINE PHOSPHOKINASE 73 U/L (26-192); CREATININE FOR GFR 0.74 MG/DL (0.55-1.30); GLOMERULAR FILTRATION RATE > 60.0 (>45); GLUCOSE, FASTING 127 MG/DL (70-100); MB/CK RELATIVE INDEX 4.79 (< OR =4); NT-PRO BNP 252 PG/ML (<125); POTASSIUM SERUM 3.8 MEQ/L (3.5-5.1); SODIUM LEVEL 139 MEQ/L (136-145); TOTAL PROTEIN 6.5 GM/DL (6.4-8.2); TROPONIN I 0.02 NG/ML (< 0.10)
[2020-07-06] MEDS ORDERED: IPRATROPIUM 0.5MG/ALBUTEROL 2.5MG INH SOL UD 3ML (DUONEB) NEB ONE (16:15)
[2020-07-06] MEDS ORDERED: ALBUTEROL SULFATE 2.5 MG/0.5 ML INH NEB SOLN NEB ONE (16:45)
[2020-07-06 17:29] VITALS: O2SAT 94
[2020-07-06 18:00] VITALS: BP 125/64
--- NOTE | 2020-07-06 23:17 | ECGEPIP ---
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
== END 2020-07-06 18:30 | disposition home or self-care (01) ==
LOC: EDBD 14:30 → M ED 14:30
DX: J44.1 Chronic obstructive pulmonary disease with (acute) exacerbation (principal); F17.200 Nicotine dependence, unspecified, uncomplicated; R91.1 Solitary pulmonary nodule; I10 Essential (primary) hypertension; K21.9 Gastro-esophageal reflux disease without esophagitis; R00.0 Tachycardia, unspecified; Z79.51 Long term (current) use of inhaled steroids; Z79.52 Long term (current) use of systemic steroids; Z79.899 Other long term (current) drug therapy; Z88.6 Allergy status to analgesic agent

== ENCOUNTER 2020-07-19 18:32 | Emergency (ER) | payer OTHER ==
[~2020-07-19] VITALS: Ht 160 cm; Wt 69.1 kg
[~2020-07-19 18:32] MED LIST changes: +LOSA50TA5 PO
[2020-07-19] MEDS ORDERED: LORAPOW30 (19:01)
[2020-07-19] MEDS ORDERED: COMBIVENT RESPIMAT 100-20MCG INHALER 4GM INH ONE (19:30)
[2020-07-19] MEDS ORDERED: methylPREDNISolone 125MG 2ML VIAL IV ONE (19:30)
[2020-07-19] MEDS ORDERED: IPRATROPIUM 0.5MG/ALBUTEROL 2.5MG INH SOL UD 3ML (DUONEB) NEB ONE ×2 (20:30→22:00)
--- NOTE | 2020-07-19 20:43 | REPVR ---
PROCEDURE INFORMATION: Exam: XR Chest, 1 View Exam date and time: 07/19/2020 7:20 PM Age: 60 years old Clinical indication: Cough and dyspnea TECHNIQUE: Imaging protocol: XR of the chest Views: 1 view. COMPARISON: 1. CR PORTABLE CHEST X-RAY 07/06/2020 3:[address] Chest with contrast 09/05/2019 10:29:32 AM 3. CR - CHEST 2 VIEW 08/17/2015 8:16:57 AM FINDINGS: Lungs: There is a 1.1 cm solid pulmonary nodule in the right upper lobe, which is unchanged compared to the prior CT chest on 09/05/2019 and chest x-ray on 08/17/2015 and for which further imaging follow-up is not necessary. No lung consolidation or pulmonary edema is noted. There is chronic scarring of the lung apices and left upper lobe. Pleural space: Unremarkable. No pleural effusion or pneumothorax is identified. Heart/Mediastinum: Unremarkable. No cardiomegaly. Vasculature: There are atherosclerotic calcifications of the aortic arch. Bones/joints: There is a mild dextroscoliosis of the thoracic spine. IMPRESSION: No acute findings. Electronically signed by: Alex Darnell On 07/19/2020 20:42:52 PM
[2020-07-19 20:44] LABS: BASO % 0.2 % (0.0-1.0); EOS % 0.1 % (0.0-3.0); HEMATOCRIT 44.8 % (36.0-47.0); HEMOGLOBIN 14.3 g/dl (12.0-15.5); LYMPH # 2.3 10^3/uL (1.5-5.0); LYMPH % 20.1 % (24.0-44.0); MEAN CORPUSCULAR HEMOGLOBIN 30.9 pg (27.0-33.0); MEAN CORPUSCULAR HGB CONC 31.9 g/dl (32.0-36.5); MEAN CORPUSCULAR VOLUME 96.8 fl (80.0-96.0); MONO # 0.6 10^3/uL (0.0-0.8); MONO % 5.4 % (0.0-5.0); NEUTROPHILS # 8.3 10^3/uL (1.5-8.5); NEUTROPHILS % 73.9 % (36.0-66.0); PLATELET COUNT, AUTOMATED 346 10^3/uL (150-450); RED BLOOD COUNT 4.63 10^6/uL (4.00-5.40); WHITE BLOOD COUNT 11.2 10^3/uL (4.0-10.0)
[2020-07-19 21:00] LABS: INR 0.84; PROTHROMBIN TIME 11.7 SECONDS (12.5-14.3)
[2020-07-19 21:17] LABS: ALBUMIN 3.3 GM/DL (3.2-5.2); ALT/SGPT 27 U/L (12-78); BILIRUBIN,DIRECT < 0.1 MG/DL (0.0-0.2); BILIRUBIN,TOTAL 0.1 MG/DL (0.2-1.0); BLOOD UREA NITROGEN 20 MG/DL (7-18); CALCIUM LEVEL 9.6 MG/DL (8.8-10.2); CARBON DIOXIDE LEVEL 38 MEQ/L (21-32); CHLORIDE LEVEL 94 MEQ/L (98-107); CK-MB VALUE MASS 2.7 NG/ML (<3.6); CPK CREATINE PHOSPHOKINASE 71 U/L (26-192); CREATININE FOR GFR 0.67 MG/DL (0.55-1.30); GLOMERULAR FILTRATION RATE > 60.0 (>45); GLUCOSE, FASTING 97 MG/DL (70-100); NT-PRO BNP 155 PG/ML (<125); POTASSIUM SERUM 3.8 MEQ/L (3.5-5.1); SODIUM LEVEL 138 MEQ/L (136-145); TOTAL PROTEIN 6.8 GM/DL (6.4-8.2); TROPONIN I 0.02 NG/ML (< 0.10)
[2020-07-19 21:56] VITALS: O2SAT 90
[2020-07-19 22:45] VITALS: BP 108/55
--- NOTE | 2020-07-21 08:21 | ECGEPIP ---
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
== END 2020-07-19 23:07 | disposition home or self-care (01) ==
LOC: M ED 18:32
DX: R06.02 Shortness of breath (principal); R94.31 Abnormal electrocardiogram [ECG] [EKG]; Z53.9 Procedure and treatment not carried out, unspecified reason; J44.9 Chronic obstructive pulmonary disease, unspecified; Z99.81 Dependence on supplemental oxygen; E78.5 Hyperlipidemia, unspecified; E55.9 Vitamin D deficiency, unspecified; H40.9 Unspecified glaucoma; M81.0 Age-related osteoporosis without current pathological fracture; Z79.51 Long term (current) use of inhaled steroids; Z79.899 Other long term (current) drug therapy
CPT/HCPCS: 71045; 80048; 80076; 82550; 82553; 83880; 84443; 85025; 85610; 87486; 87581; 87633; 87798; 93005; 93041; 94640; 94760; 96374; 99285; J2930

== ENCOUNTER 2020-08-06 17:24 | Emergency (ER) | payer OTHER ==
[~2020-08-06] VITALS: Ht 160 cm; Wt 69.1 kg
[~2020-08-06 17:24] MED LIST changes: +LORAPOW30
[2020-08-06] MEDS ORDERED: IPRATROPIUM 0.5MG/ALBUTEROL 2.5MG INH SOL UD 3ML (DUONEB) NEB PRN (17:45)
[2020-08-06] MEDS ORDERED: BUPR150T5 (18:17)
[2020-08-06 18:19] LABS: BASO % 0.2 % (0.0-1.0); HEMATOCRIT 46.1 % (36.0-47.0); HEMOGLOBIN 14.1 g/dl (12.0-15.5); LYMPH # 0.9 10^3/uL (1.5-5.0); LYMPH % 7.4 % (24.0-44.0); MEAN CORPUSCULAR HEMOGLOBIN 29.9 pg (27.0-33.0); MEAN CORPUSCULAR HGB CONC 30.6 g/dl (32.0-36.5); MEAN CORPUSCULAR VOLUME 97.7 fl (80.0-96.0); MONO # 0.3 10^3/uL (0.0-0.8); MONO % 2.1 % (0.0-5.0); NEUTROPHILS # 10.7 10^3/uL (1.5-8.5); NEUTROPHILS % 89.8 % (36.0-66.0); PLATELET COUNT, AUTOMATED 324 10^3/uL (150-450); RED BLOOD COUNT 4.72 10^6/uL (4.00-5.40); WHITE BLOOD COUNT 11.9 10^3/uL (4.0-10.0)
[2020-08-06 18:35] LABS: INR 0.84; PROTHROMBIN TIME 11.7 SECONDS (12.5-14.3)
--- NOTE | 2020-08-06 18:55 | REP ---
INDICATION: DYSPNEA/COUGH COMPARISON: 07/19/2020 TECHNIQUE: PA and lateral. FINDINGS: The mediastinum and cardiac silhouette are normal. The lung hernandez are clear and without acute consolidation, effusion, or pneumothorax. The skeletal structures are intact and normal. IMPRESSION: No acute cardiopulmonary process. <Electronically signed by Prashanth Carranza > 08/06/20 [id number]
[2020-08-06 18:57] LABS: ALT/SGPT 23 U/L (12-78); BLOOD UREA NITROGEN 10 MG/DL (7-18); CALCIUM LEVEL 9.2 MG/DL (8.8-10.2); CARBON DIOXIDE LEVEL 37 MEQ/L (21-32); CHLORIDE LEVEL 97 MEQ/L (98-107); CPK CREATINE PHOSPHOKINASE 82 U/L (26-192); CREATININE FOR GFR 0.66 MG/DL (0.55-1.30); GLOMERULAR FILTRATION RATE > 60.0 (>45); GLUCOSE, FASTING 123 MG/DL (70-100); SODIUM LEVEL 139 MEQ/L (136-145)
[2020-08-06 18:58] LABS: ALBUMIN 3.5 GM/DL (3.2-5.2); BILIRUBIN,DIRECT < 0.1 MG/DL (0.0-0.2); BILIRUBIN,TOTAL 0.2 MG/DL (0.2-1.0); CK-MB VALUE MASS 2.4 NG/ML (<3.6); MB/CK RELATIVE INDEX 2.93 (< OR =4); NT-PRO BNP 120 PG/ML (<125); TROPONIN I < 0.02 NG/ML (< 0.10)
[2020-08-06 20:00] VITALS: BP 133/71
[2020-08-06] MEDS ORDERED: PRED20TA PO (20:06)
--- NOTE | 2020-08-06 20:41 | ECGEPIP ---
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
== END 2020-08-06 20:35 | disposition home or self-care (01) ==
LOC: M ED 17:24 → EDBD 17:24 → M ED 20:35
DX: J44.1 Chronic obstructive pulmonary disease with (acute) exacerbation (principal); I45.10 Unspecified right bundle-branch block; I10 Essential (primary) hypertension; E78.5 Hyperlipidemia, unspecified; H40.9 Unspecified glaucoma; M19.90 Unspecified osteoarthritis, unspecified site; F17.200 Nicotine dependence, unspecified, uncomplicated; J30.2 Other seasonal allergic rhinitis; Z88.6 Allergy status to analgesic agent; Z79.51 Long term (current) use of inhaled steroids; Z79.899 Other long term (current) drug therapy

== ENCOUNTER → 2020-10-05 | Outpatient (CLI) | payer OTHER ==
[~2020-10-05] MED LIST changes: +BUPR150T5
== END ==
LOC: M PT 12:50
PROVIDERS: ATTEND Physician Assistant Medical
DX: J47.9 Bronchiectasis, uncomplicated (principal); J44.9 Chronic obstructive pulmonary disease, unspecified; R09.02 Hypoxemia

== ENCOUNTER 2020-11-08 10:27 | Emergency (ER) | payer OTHER ==
[~2020-11-08] VITALS: Ht 160 cm; Wt 70.0 kg
[2020-11-08] MEDS ORDERED: MORP20SO3 PO (10:55)
[2020-11-08 10:58] LABS: VENOUS BASE EXCESS 14.3 (-2.0-2.0); VENOUS HCO3 43.3 MEQ/L (23.0-27.0); VENOUS O2 SATURATION 94.7 % (60.0-80.0); VENOUS PARTIAL PRESSURE CO2 73.5 mmHg (38.0-50.0); VENOUS PARTIAL PRESSURE O2 69.5 mmHg (30.0-50.0); VENOUS PH 7.388 UNITS (7.330-7.430); VENOUS STANDARD HCO3 38.1 MEQ/L; VENOUS TOTAL CO2 45.6 MEQ/L (24.0-28.0)
[2020-11-08 11:06] LABS: BASO % 0.2 % (0.0-1.0); EOS % 0.1 % (0.0-3.0); HEMATOCRIT 46.4 % (36.0-47.0); HEMOGLOBIN 14.5 g/dl (12.0-15.5); LYMPH % 9.1 % (24.0-44.0); MEAN CORPUSCULAR HEMOGLOBIN 30.1 pg (27.0-33.0); MEAN CORPUSCULAR HGB CONC 31.3 g/dl (32.0-36.5); MEAN CORPUSCULAR VOLUME 96.3 fl (80.0-96.0); MONO # 0.4 10^3/uL (0.0-0.8); MONO % 3.4 % (0.0-5.0); NEUTROPHILS # 9.4 10^3/uL (1.5-8.5); NEUTROPHILS % 86.7 % (36.0-66.0); PLATELET COUNT, AUTOMATED 344 10^3/uL (150-450); RED BLOOD COUNT 4.82 10^6/uL (4.00-5.40); WHITE BLOOD COUNT 10.8 10^3/uL (4.0-10.0)
--- NOTE | 2020-11-08 11:15 | REP ---
INDICATION: DYSPNEA/COUGH COMPARISON: 08/06/2020 TECHNIQUE: Portable AP view of the chest FINDINGS: The mediastinum and cardiac silhouette are stable and within normal limits for portable technique. The lung hernandez demonstrate stable chronic changes similar to prior examination. There appears to be a new 10 mm nodule in the periphery of the right upper lung zone which warrants further investigation. Skeletal structures are intact. IMPRESSION: 1. Possible 10 mm nodule in the periphery of the right upper lung zone warrants further investigation. <Electronically signed by Prashanth Carranza > 11/08/20 [id number]
[2020-11-08 11:43] LABS: ALBUMIN 3.6 GM/DL (3.2-5.2); ALT/SGPT 22 U/L (12-78); BILIRUBIN,DIRECT < 0.1 MG/DL (0.0-0.2); BILIRUBIN,TOTAL 0.2 MG/DL (0.2-1.0); NT-PRO BNP 59 PG/ML (<125); TOTAL PROTEIN 6.9 GM/DL (6.4-8.2)
[2020-11-08] MEDS ORDERED: ANEXSIA, NORCO 7.5MG/325MG TABLET(HYDROCODONE/APAP) PO ONE (11:45)
[2020-11-08 12:30] LABS: APPEARANCE, URINE CLEAR (CLEAR); BACTERIA, URINE AUTO NEGATIVE (NEGATIVE); BILIRUBIN, URINE AUTO NEGATIVE (NEGATIVE); BLOOD, URINE BLOOD NEGATIVE (NEGATIVE); COLOR, URINE STRAW (YELLOW); GLUCOSE, URINE (UA) AUTO NEGATIVE (NEGATIVE); KETONE, URINE AUTO NEGATIVE (NEGATIVE); LEUKOCYTE ESTERASE, URINE AUTO NEGATIVE (NEGATIVE); NITRITE, URINE AUTO NEGATIVE (NEGATIVE); PROTEIN, URINE AUTO NEGATIVE (NEGATIVE); RBC, URINE AUTO 0 /HPF (0-3); SPECIFIC GRAVITY URINE AUTO 1.004 (1.002-1.035); SQUAMOUS EPITHELIAL CELL UR AU 1 /HPF (0-6); UROBILINOGEN, URINE AUTO 0.2 mg/dL (0.0-2.0); WBC, URINE AUTO 0 /HPF (0-3)
[2020-11-08] MEDS ORDERED: POTASSIUM CHLORIDE 10 MEQ SR TABLET PO ONE (14:00)
[2020-11-08] MEDS ORDERED: HYDR-3713 PO (14:00)
[2020-11-08 15:15] VITALS: BP 162/77
--- NOTE | 2020-11-08 22:01 | ED PDOC ---
Post-Departure Follow-Up abimael oconnor faxed formal report of cxr for fu issag Roxy Barker MD Nov 08, 2020 22:01
--- NOTE | 2020-11-10 14:22 | ECGEPIP ---
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
== END 2020-11-08 15:15 | disposition home or self-care (01) ==
LOC: EDBD 10:27 → M ED 10:27
DX: M54.5 Low back pain (principal); R91.8 Other nonspecific abnormal finding of lung field; J44.9 Chronic obstructive pulmonary disease, unspecified; I10 Essential (primary) hypertension; Z88.6 Allergy status to analgesic agent; F17.200 Nicotine dependence, unspecified, uncomplicated; Z79.51 Long term (current) use of inhaled steroids; Z79.899 Other long term (current) drug therapy

== ENCOUNTER 2020-12-31 12:00 | Emergency (ER) | payer OTHER ==
[~2020-12-31] VITALS: Ht 160 cm; Wt 65.9 kg
[~2020-12-31 12:00] MED LIST changes: +HYDR-3713 PO; +MORP20SO3 PO
[2020-12-31 12:51] LABS: BASO % 0.2 % (0.0-1.0); HEMATOCRIT 45.1 % (36.0-47.0); HEMOGLOBIN 13.6 g/dl (12.0-15.5); LYMPH # 1.8 10^3/uL (1.5-5.0); LYMPH % 20.4 % (24.0-44.0); MEAN CORPUSCULAR HEMOGLOBIN 29.5 pg (27.0-33.0); MEAN CORPUSCULAR HGB CONC 30.2 g/dl (32.0-36.5); MEAN CORPUSCULAR VOLUME 97.8 fl (80.0-96.0); MONO # 0.5 10^3/uL (0.0-0.8); MONO % 5.6 % (2.0-8.0); NEUTROPHILS # 6.6 10^3/uL (1.5-8.5); NEUTROPHILS % 73.6 % (36.0-66.0); PLATELET COUNT, AUTOMATED 332 10^3/uL (150-450); RED BLOOD COUNT 4.61 10^6/uL (4.00-5.40)
--- NOTE | 2020-12-31 12:51 | REP ---
INDICATION: DYSPNEA/COUGH. COMPARISON: Portable chest dated 11/08/2020, chest CT dated 09/05/[address] dated 10/20/2016. TECHNIQUE: Upright PA and lateral chest. FINDINGS: The lung hernandez are clear except for stable 10 mm lung nodule in the right lung, unchanged from the comparison studies including the most remote chest CT dated 10/20/2016, likely a granuloma. Cardiac size is normal. The robby, mediastinum and skeletal structures are unremarkable. IMPRESSION: Essentially negative PA and lateral chest There are no acute cardiopulmonary findings. There is a stable right lung nodule as described. <Electronically signed by Gurjit Frank > 12/31/20 [id number]
[2020-12-31 13:25] LABS: ALBUMIN 3.1 GM/DL (3.2-5.2); ALT/SGPT 19 U/L (12-78); BILIRUBIN,DIRECT < 0.1 MG/DL (0.0-0.2); BILIRUBIN,TOTAL 0.1 MG/DL (0.2-1.0); BLOOD UREA NITROGEN 12 MG/DL (7-18); CALCIUM LEVEL 9.2 MG/DL (8.8-10.2); CARBON DIOXIDE LEVEL 42 MEQ/L (21-32); CHLORIDE LEVEL 93 MEQ/L (98-107); CK-MB VALUE MASS 2.2 NG/ML (<3.6); CPK CREATINE PHOSPHOKINASE 54 U/L (26-192); CREATININE FOR GFR 0.48 MG/DL (0.55-1.30); GLOMERULAR FILTRATION RATE > 60.0 (>45); GLUCOSE, FASTING 139 MG/DL (70-100); MB/CK RELATIVE INDEX 4.07 (< OR =4); POTASSIUM SERUM 3.5 MEQ/L (3.5-5.1); SODIUM LEVEL 138 MEQ/L (136-145); TOTAL PROTEIN 6.2 GM/DL (6.4-8.2); TROPONIN I < 0.02 NG/ML (< 0.10)
[2020-12-31] MEDS: COMBIVENT RESPIMAT 100-20MCG INHALER 4GM INH SCH ×3 (14:03→14:28)
[2020-12-31] MEDS ORDERED: MEDR4PAK PO (14:29)
[2020-12-31 14:45] VITALS: BP 135/75
--- NOTE | 2021-01-02 08:01 | ECGEPIP ---
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
== END 2020-12-31 15:06 | disposition home or self-care (01) ==
LOC: EDBD 12:00 → M ED 12:00
DX: J44.1 Chronic obstructive pulmonary disease with (acute) exacerbation (principal); I11.9 Hypertensive heart disease without heart failure; Z99.81 Dependence on supplemental oxygen; R94.31 Abnormal electrocardiogram [ECG] [EKG]; F17.200 Nicotine dependence, unspecified, uncomplicated; Z88.6 Allergy status to analgesic agent; Z79.51 Long term (current) use of inhaled steroids; Z79.899 Other long term (current) drug therapy

== ENCOUNTER 2021-01-22 08:31 | Emergency (ER) | payer MEDICAID, OTHER ==
[~2021-01-22] VITALS: Ht 160 cm; Wt 66.8 kg
[~2021-01-22 08:31] MED LIST changes: +MEDR4PAK PO
[2021-01-22 08:38] VITALS: BP 125/58
[2021-01-22] MEDS: COMBIVENT RESPIMAT 100-20MCG INHALER 4GM INH PRN ×3 (08:53→09:50)
--- NOTE | 2021-01-22 09:09 | REP ---
INDICATION: DYSPNEA/COUGH. COMPARISON: 12/31/2020. TECHNIQUE: SINGLE PORTABLE AP VIEW OF THE CHEST WAS PERFORMED. FINDINGS: There is stable biapical pleural and parenchymal scarring. There is no acute infiltrate. The heart is normal in size. There is calcification of the thoracic aorta. There is curvature of the spine toward the right. IMPRESSION: NO ACUTE PULMONARY DISEASE.Stable chronic changes. <Electronically signed by Gurjit Saab > 01/22/21 0905
[2021-01-22 09:30] LABS: BASO % 0.3 % (0.0-1.0); EOS # 0.2 10^3/uL (0.0-0.5); EOS % 2.2 % (0.0-3.0); HEMOGLOBIN 14.7 g/dl (12.0-15.5); LYMPH # 1.3 10^3/uL (1.5-5.0); LYMPH % 16.2 % (24.0-44.0); MEAN CORPUSCULAR HEMOGLOBIN 29.5 pg (27.0-33.0); MEAN CORPUSCULAR HGB CONC 30.6 g/dl (32.0-36.5); MEAN CORPUSCULAR VOLUME 96.2 fl (80.0-96.0); MONO # 0.4 10^3/uL (0.0-0.8); MONO % 5.4 % (2.0-8.0); NEUTROPHILS # 5.9 10^3/uL (1.5-8.5); NEUTROPHILS % 75.4 % (36.0-66.0); PLATELET COUNT, AUTOMATED 324 10^3/uL (150-450); RED BLOOD COUNT 4.99 10^6/uL (4.00-5.40); WHITE BLOOD COUNT 7.8 10^3/uL (4.0-10.0)
[2021-01-22 10:37] LABS: ALBUMIN 3.3 GM/DL (3.2-5.2); ALT/SGPT 18 U/L (12-78); BILIRUBIN,DIRECT < 0.1 MG/DL (0.0-0.2); BILIRUBIN,TOTAL 0.3 MG/DL (0.2-1.0); BLOOD UREA NITROGEN 14 MG/DL (7-18); CALCIUM LEVEL 9.2 MG/DL (8.8-10.2); CARBON DIOXIDE LEVEL 48 MEQ/L (21-32); CHLORIDE LEVEL 89 MEQ/L (98-107); CK-MB VALUE MASS 2.5 NG/ML (<3.6); CPK CREATINE PHOSPHOKINASE 73 U/L (26-192); CREATININE FOR GFR 0.52 MG/DL (0.55-1.30); GLOMERULAR FILTRATION RATE > 60.0 (>45); GLUCOSE, FASTING 123 MG/DL (70-100); MB/CK RELATIVE INDEX 3.42 (< OR =4); NT-PRO BNP 180 PG/ML (<125); POTASSIUM SERUM 2.9 MEQ/L (3.5-5.1); SODIUM LEVEL 138 MEQ/L (136-145); TOTAL PROTEIN 6.6 GM/DL (6.4-8.2); TROPONIN I 0.02 NG/ML (< 0.10)
[2021-01-22] MEDS ORDERED: POTASSIUM CHLORIDE 10 MEQ SR TABLET PO ONE (10:40)
[2021-01-22 11:30] VITALS: O2SAT 94
[2021-01-22] MEDS ORDERED: PRED20TA PO (11:56)
[2021-01-22] MEDS ORDERED: IPRATROPIUM 0.5MG/ALBUTEROL 2.5MG INH SOL UD 3ML (DUONEB) NEB ONE (12:45)
--- NOTE | 2021-01-23 15:33 | ECGEPIP ---
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
== END 2021-01-22 13:30 | disposition home or self-care (01) ==
LOC: M ED 08:31 → EDBD 08:31 → M ED 13:30
DX: J44.1 Chronic obstructive pulmonary disease with (acute) exacerbation (principal); F17.200 Nicotine dependence, unspecified, uncomplicated; I10 Essential (primary) hypertension; E78.5 Hyperlipidemia, unspecified; Z79.51 Long term (current) use of inhaled steroids; Z79.899 Other long term (current) drug therapy; Z88.6 Allergy status to analgesic agent

== ENCOUNTER 2021-02-10 12:21 | Inpatient (IN) | payer OTHER ==
[~2021-02-10] VITALS: Ht 160 cm; Wt 59.6 kg
[~2021-02-10 12:21] MED LIST changes: -COMBAER6; +COMBAER6 INH
--- NOTE | 2021-02-10 13:00 | REP ---
INDICATION: DYSPNEA/COUGH. COMPARISON: 01/22/2021. TECHNIQUE: Single portable AP view of the chest was performed. FINDINGS: There is no acute infiltrate or pulmonary edema. There are mild bilateral fibrotic changes. The heart is not significantly enlarged. The mediastinal silhouette is unremarkable. The visualized osseous structures are intact. IMPRESSION: No acute pulmonary disease.Mild chronic changes are stable. <Electronically signed by Gurjit Saab > 02/10/21 [id number]
[2021-02-10 13:14] LABS: BASO % 0.2 % (0.0-1.0); HEMATOCRIT 47.5 % (36.0-47.0); HEMOGLOBIN 14.9 g/dl (12.0-15.5); LYMPH # 0.7 10^3/uL (1.5-5.0); LYMPH % 6.1 % (24.0-44.0); MEAN CORPUSCULAR HEMOGLOBIN 29.2 pg (27.0-33.0); MEAN CORPUSCULAR HGB CONC 31.4 g/dl (32.0-36.5); MONO # 0.2 10^3/uL (0.0-0.8); NEUTROPHILS % 91.2 % (36.0-66.0); PLATELET COUNT, AUTOMATED 327 10^3/uL (150-450); RED BLOOD COUNT 5.11 10^6/uL (4.00-5.40)
[2021-02-10 13:41] LABS: ALBUMIN 3.4 GM/DL (3.2-5.2); ALT/SGPT 16 U/L (12-78); BILIRUBIN,DIRECT 0.1 MG/DL (0.0-0.2); BILIRUBIN,TOTAL 0.4 MG/DL (0.2-1.0); BLOOD UREA NITROGEN 12 MG/DL (7-18); CARBON DIOXIDE LEVEL 40 MEQ/L (21-32); CHLORIDE LEVEL 90 MEQ/L (98-107); CK-MB VALUE MASS 1.3 NG/ML (<3.6); CPK CREATINE PHOSPHOKINASE 47 U/L (26-192); CREATININE FOR GFR 0.51 MG/DL (0.55-1.30); GLOMERULAR FILTRATION RATE > 60.0 (>45); GLUCOSE, FASTING 141 MG/DL (70-100); MB/CK RELATIVE INDEX 2.77 (< OR =4); POTASSIUM SERUM 3.3 MEQ/L (3.5-5.1); SODIUM LEVEL 134 MEQ/L (136-145); TOTAL PROTEIN 6.8 GM/DL (6.4-8.2); TROPONIN I < 0.02 NG/ML (< 0.10)
[2021-02-10] MEDS ORDERED: dexameTHASONE 20MG/5ML VIAL (J1100 PER 1MG) IV ONE (14:30)
[2021-02-10] MEDS ORDERED: ISOVUE-370 76% 100ML VIAL As Ordered ONE (14:37)
--- NOTE | 2021-02-10 15:02 | REP ---
INDICATION: shortness of breath. 9 COMPARISON: Comparison CT study 05 September 2019.. TECHNIQUE: Contrast dose: 75 ML of Isovue [address] technique: Helical scanning is acquired and overlapping 1.5 mm and contiguous 3 mm axial images are reformatted. In addition, maximum intensity projection and multiplanar re-formation images are generated in sagittal and coronal imaging projections. FINDINGS: There is good opacification in the pulmonary arterial tree. There is no evidence of vessel cut off or filling defect to suggest pulmonary embolus. Homogeneous opacity is seen in the thoracic aorta. There is no evidence of aneurysm or dissection. Lung window settings demonstrate a stable 1.1 cm right upper lobe nodule or trade on slice 35 of 101 series 402 of today's study. There is stable somewhat nodular pleuroparenchymal fibrosis in the left upper lobe. These findings are unchanged from the September 05, 2019 study. There are emphysematous changes again noted particularly in the upper lobes consistent with COPD. No pleural or pericardial effusion is seen. No hilar or mediastinal mass or adenopathy is observed. In the upper abdomen, the adrenals are seen to be normal. Clips are noted in the gallbladder fossa. The visualized upper abdominal structures are otherwise unremarkable. No bony lesion is seen. IMPRESSION: No CT evidence of pulmonary embolus. Hyperinflation consistent with COPD. Stable nodular densities in the right upper lobe and left upper lobe. <Electronically signed by Meet Canela > 02/10/21 [id number]
[2021-02-10] MEDS: COMBIVENT RESPIMAT 100-20MCG INHALER 4GM INH SCH ×3 (15:04→15:54)
[2021-02-10] MEDS ORDERED: PRED10TA2 PO ×2 (16:38→18:10)
[2021-02-10] MEDS ORDERED: ONDA4TAB6 PO (16:38)
[2021-02-10 17:16] LABS: RSV AMPLIFICATION NEGATIVE (NEGATIVE)
[2021-02-10] MEDS ORDERED: BUDE2SUS3 INH (18:10)
[2021-02-10] MEDS ORDERED: MIRA3350 PO (18:10)
[2021-02-10] MEDS ORDERED: LORA1TAB4 PO (18:10)
[2021-02-10] MEDS ORDERED: IPRA0.00 INH (18:10)
[2021-02-10] MEDS ORDERED: MORPHINE 10MG/0.5ML ORAL CONCENTRATE SOLUTION U/D PO PRN (18:15)
[2021-02-10] MEDS: LEVALBUTEROL 1.25 MG/0.5 ML CONCENTRATE NEB INH PRN ×2 (18:15→20:51)
[2021-02-10] MEDS ORDERED: MIRALAX *UNIT DOSE* 17GM PACKET PO PRN (18:15)
[2021-02-10] MEDS ORDERED: OMEPRAZOLE 20 MG CAP PO ONE ×2 (18:25→18:35)
[2021-02-10] MEDS ORDERED: ONDANSETRON 4MG/2ML VIAL IV ONE (18:35)
--- NOTE | 2021-02-10 19:19 | HPE ---
HISTORY AND PHYSICAL DATE OF ADMISSION: 02/10/2021 CHIEF COMPLAINT: Shortness of breath. HISTORY OF PRESENT ILLNESS: A 60-year-old female with a history of chronic obstructive pulmonary disease (COPD), chronic hypoxic respiratory failure, on 2.5 liters of oxygen continuously, hypertension, hyperlipidemia, osteoporosis, glaucoma, steroid dependent, presents to the emergency room with complaints of worsening shortness of breath over the past 3-4 weeks, worsening over the past 3-4 days. She denies any fever and felt cold all day yesterday. She has had nausea all day for the past 3-4 days with 3-4 episodes of watery stools at home without recent use of antibiotics. She has had no sick contacts. She has no headache. She has had decrease in appetite and tolerated her toast today. No dizziness. She complains of some chest discomfort when she takes a deep breath on the right side and alleviated by nebulizer treatments every 3-4 hours at home. Patient denies any palpitations, denies any lower extremity edema or weight gain. She usually walks unassisted but has a walker at home and only walks about 10-15 feet at baseline. She sees Dr. Christiansen in the office and was told that she has end-stage COPD. No prior history of cor pulmonale or congestive heart failure. Her last echocardiogram was 2018, read by Dr. Mauro Espinosa, which showed grade 1 left ventricular diastolic dysfunction, ejection fraction of 70%-75%, mild elevation of the pulmonary artery systolic pressure, mild right ventricular hypertrophy, pulmonary artery pressure of 36 mmHg. In the emergency room, evaluation included a CT chest, which showed no pulmonary embolism, stable nodular densities in the right upper and left upper lobe. Patient admits to still smoking one and one-half packs of cigarettes a day. Previously smoked two packs a day. Hospitalist was asked to admit the patient as an inpatient for two midnights for COPD exacerbation and chronic hypoxic respiratory failure. MEDICAL HISTORY: 1. Chronic hypoxic respiratory failure, on 2.5 liters of home oxygen, steroid dependent. 2. COPD. 3. Hypertension. 4. Osteoarthritis. 5. Mild pulmonary hypertension, PA pressure of 36 mmHg on echocardiogram in [address] Mauro Espinosa. 6. Grade 1 left ventricular diastolic dysfunction, ejection fraction of 75%. 7. Bilateral hip osteoarthritis. 8. Mixed hyperlipidemia. 9. Vitamin D deficiency. 10. Seborrheic dermatitis of the scalp. 11. Osteoporosis. 12. Glaucoma. 13. Vitamin D deficiency. ALLERGIES: CODEINE, causing nausea and vomiting. PAST SURGICAL HISTORY: 1. Tubal ligation. 2. Cholecystectomy. 3. Left breast lumpectomy. 4. Papilloma in 2005. 5. Hysterectomy due to fibroid uterus. 6. Adenomyosis in 2005. HOME MEDICATIONS: - azithromycin 250 mg three times weekly - diltiazem 30 mg daily - vitamin D 50,000 units weekly - hydrochlorothiazide 12.5 mg daily - Combivent one puff four times a day. - Combivent 3 mL nebulizers as needed - Xalatan one drop both eyes every night - lorazepam 0.5 mg twice a day as needed - morphine sulfate 0.5 mL by mouth every 3 hours as needed for dyspnea - MiraLax 17 grams daily as needed for constipation - prednisone 10 mg daily - budesonide 2 mL inhaled twice a day - losartan/hydrochlorothiazide 50/12.5 mg daily - Spiriva two puffs inhaled daily FAMILY HISTORY: Father at age 76 with Alzheimer's, coronary artery disease (CAD), emphysema. Mother, age 74, uterine cancer, malignant neoplasm. Siblings with cancer, unknown type. REVIEW OF SYSTEMS: Per history of present illness (HPI). A 12-point system otherwise negative. PHYSICAL EXAMINATION: VITAL SIGNS: Temperature 98.7, pulse 108, sinus rhythm, tachycardic, respiratory rate 20, blood pressure 112/63, 98% on 2 liters nasal cannula. GENERAL: Patient is awake, alert, oriented to person, place, and time, answers questions appropriately. She has no conversational dyspnea. Able to complete her sentences. HEENT: Pupils are equally round and reactive to light and accommodation. Extraocular muscles are intact. No jugular venous distention (JVD). Poor dentition with missing teeth. Dry mucous membranes. No JVD, thyromegaly, stridor, or cervical lymphadenopathy. LUNGS: Diminished with fine expiratory wheezing. Air entry is equal bilaterally. She has slight kyphoscoliosis. HEART: S1, S2, sinus tachycardia. No murmurs, rubs, or gallops. No S3 noted. ABDOMEN: Soft, nontender, nondistended. Positive bowel sounds times four quadrants. EXTREMITIES: No cyanosis or clubbing. No pitting edema. LABORATORY DATA: White count 12, hemoglobin 14, hematocrit 47, platelet count 327. Sodium 134, potassium 3.3, chloride 90, bicarbonate 40, BUN 12, creatinine 0.5, glucose 141. Calcium 10. Total bilirubin 0.4, direct bilirubin 0.1, AST 9, ALT 16, alkaline phosphatase 119. Total CK 47, MB fraction 1.3, troponin less than 0.02. Albumin 3.4. Respiratory panel negative for coronavirus. CT chest: No pulmonary embolism, no pneumonia, no effusion. Chronic right upper and left upper lobe nodular densities. Hyperinflation consistent with COPD. ASSESSMENT AND PLAN: This is a 60-year-old female with pulmonary hypertension, 36 mmHg of previous echocardiogram in 2018, read by Dr. Mauro Espinosa, chronic hypoxic respiratory failure, on 2.5 liters of home oxygen via nasal cannula, chronic obstructive pulmonary disease (COPD), steroid and oxygen dependent, always on 10 mg of prednisone daily and antibiotics, currently on prophylactic azithromycin, hypertension, osteoarthritis, mixed hyperlipidemia, vitamin D deficiency, osteoporosis, glaucoma, history of left breast papilla, fibroid uterus requiring hysterectomy, presents to the emergency room with worsening shortness of breath over the past 3-4 weeks, worsening in the past 3-4 days, accompanied with some nausea, vomiting, and diarrhea. Patient will be admitted as an inpatient for the following acute issues: 1. Acute COPD exacerbation with history of chronic hypoxic respiratory failure, on chronic 2.5 liters of oxygen at all times and steroid dependent, chronically on 10 mg of prednisone. Patient has end-stage COPD and will be admitted of IV steroids every 6 hours with Solu-Medrol, nebulizer treatment with Xopenex. Due to tachycardia, we have decided not to use albuterol. Nebs will be given every 4 hours and every 1 hour as needed. She may resume her home Perforomist, budesonide, and Spiriva. Ceftriaxone 1 gram, Bacid 1 tablet with meals and at bedtime. Continue oxygen supplementation to keep saturations greater than 88%. 2. Pulmonary hypertension. PA pressure of 36 mmHg on echocardiogram in 2018. Recheck the echocardiogram. Cycle cardiac markers. 3. Hypertension, on diltiazem and hydrochlorothiazide with holding parameters. 4. Active smoking. Still smokes one and one-half packs of cigarettes per day. Tobacco cessation counseling has been provided. Patient is given nicotine patch 21 mg daily. 5. Vitamin D deficiency. 6. Osteoporosis. At risk of falling. Patient should walk with a walker. Physical therapy has been consulted. 7. Gastroenteritis with c/o n/v/d. negative for coronavirus. GI panel. anti-emetics. CT abd/pelvis if persists. Code status. Full code. MTDD
[2021-02-10] MEDS: LEVALBUTEROL 1.25 MG/0.5 ML CONCENTRATE NEB INH SCH (20:00)
[2021-02-10] MEDS: FORMOTEROL FUMARATE 20 MCG/2 ML INHALATION SOLUTION (PERFOROMIST) INH SCH (20:00)
[2021-02-10] MEDS: BUDESONIDE 180MCG INHALER (PULMICORT FLEXHALER) INH SCH (20:00)
[2021-02-10 20:46] VITALS: BP 141/96
[2021-02-10] MEDS: LACTOBACILLUS ACIDOPHILUS CAP (BACID) PO SCH ×2 (21:00→22:31)
[2021-02-10] MEDS: cefTRIAXone SOD 1 GM in D5W MINI-BAG PLUS 50 ML IV SCH (21:37)
[2021-02-11] MEDS: ONDANSETRON 4MG/2ML VIAL IV PRN ×2 (00:08→06:56)
[2021-02-11 00:39] LABS: CK-MB VALUE MASS 1.5 NG/ML (<3.6); CPK CREATINE PHOSPHOKINASE 58 U/L (26-192); MB/CK RELATIVE INDEX 2.59 (< OR =4); TROPONIN I < 0.02 NG/ML (< 0.10)
[2021-02-11] MEDS: LEVALBUTEROL 1.25 MG/0.5 ML CONCENTRATE NEB INH SCH ×6 (00:41→19:54)
[2021-02-11] MEDS: ACETAMINOPHEN TAB 650MG DOSE (2X325MG) PO PRN ×2 (02:45→13:52)
[2021-02-11] MEDS: methylPREDNISolone 125MG 2ML VIAL IV SCH ×4 (05:59→18:13)
[2021-02-11 06:00] VITALS: BP 123/79
[2021-02-11] MEDS: TIOTROPIUM INHALER/CAPSULE (SPIRIVA) INH SCH (07:18)
[2021-02-11] MEDS: FORMOTEROL FUMARATE 20 MCG/2 ML INHALATION SOLUTION (PERFOROMIST) INH SCH ×2 (07:18→19:54)
[2021-02-11] MEDS: BUDESONIDE 180MCG INHALER (PULMICORT FLEXHALER) INH SCH ×2 (07:20→19:54)
[2021-02-11 07:36] LABS: HEMOGLOBIN 14.8 g/dl (12.0-15.5); MEAN CORPUSCULAR HEMOGLOBIN 29.8 pg (27.0-33.0); MEAN CORPUSCULAR HGB CONC 32.2 g/dl (32.0-36.5); MEAN CORPUSCULAR VOLUME 92.6 fl (80.0-96.0); PLATELET COUNT, AUTOMATED 322 10^3/uL (150-450); RED BLOOD COUNT 4.97 10^6/uL (4.00-5.40); WHITE BLOOD COUNT 7.6 10^3/uL (4.0-10.0)
[2021-02-11] MEDS: LACTOBACILLUS ACIDOPHILUS CAP (BACID) PO SCH ×4 (08:00→20:09)
[2021-02-11 08:13] LABS: BLOOD UREA NITROGEN 18 MG/DL (7-18); CALCIUM LEVEL 10.1 MG/DL (8.8-10.2); CARBON DIOXIDE LEVEL 37 MEQ/L (21-32); CHLORIDE LEVEL 89 MEQ/L (98-107); CPK CREATINE PHOSPHOKINASE 62 U/L (26-192); GLOMERULAR FILTRATION RATE > 60.0 (>45); GLUCOSE, FASTING 146 MG/DL (70-100); MB/CK RELATIVE INDEX 3.23 (< OR =4); POTASSIUM SERUM 3.4 MEQ/L (3.5-5.1); SODIUM LEVEL 133 MEQ/L (136-145); TROPONIN I < 0.02 NG/ML (< 0.10)
[2021-02-11] MEDS ORDERED: MORPHINE 4 MG/ML 1ML VIAL/SYRINGE (J2270) IV ONE (08:30)
[2021-02-11] MEDS ORDERED: MORPHINE 10MG/0.5ML ORAL CONCENTRATE SOLUTION U/D SL ONE (08:40)
[2021-02-11] MEDS ORDERED: POTASSIUM CHLORIDE 10 MEQ SR TABLET PO ONE (08:40)
[2021-02-11] MEDS ORDERED: KETOROLAC 30 MG/ML 1ML VIAL IV ONE ×2 (08:55→18:25)
[2021-02-11] MEDS ORDERED: OMEPRAZOLE 20 MG CAP PO SCH (09:00)
[2021-02-11] MEDS ORDERED: hydroCHLOROthiazide 12.5 MG CAPSULE PO SCH (09:00)
[2021-02-11] MEDS: GASTROGRAFIN SOLUTION 30ML PO SCH ×2 (09:00→09:30)
--- NOTE | 2021-02-11 09:01 | IPNPDOC ---
Date Seen The patient was seen on 02/11/21. Progress Note S: c/o intractable nausea w/o vomiting. diffuse abd pain w/o diarrhea no fever/chills. sob improved no cough O: PE vitals/i/o reviewed see below GENERAL: Patient is awake, alert, oriented to person, place, and time, answers questions appropriately. She has no conversational dyspnea. Able to complete her sentences. lying on her right side position HEENT: Pupils are equally round and reactive to light and accommodation. Extraocular muscles are intact. No jugular venous distention (JVD). Poor dentition with missing teeth. Dry mucous membranes. No JVD, thyromegaly, stridor, or cervical lymphadenopathy. LUNGS: Diminished with fine expiratory wheezing. Air entry is equal bilaterally. She has slight kyphoscoliosis. HEART: S1, S2, sinus tachycardia. No murmurs, rubs, or gallops. No S3 noted. ABDOMEN: soft non distended hypoactive bowel sounds nontender no cvat EXTREMITIES: No cyanosis or clubbing. No pitting edema. LABORATORY DATA: see below Respiratory panel negative for coronavirus. CT chest: No pulmonary embolism, no pneumonia, no effusion. Chronic right upper and left upper lobe nodular densities. Hyperinflation consistent with COPD. ASSESSMENT AND PLAN: This is a 60-year-old female with pulmonary hypertension, 36 mmHg of previous echocardiogram in 2018, read by Dr. Mauro Espinosa, chronic hypoxic respiratory failure, on 2.5 liters of home oxygen via nasal cannula, chronic obstructive pulmonary disease (COPD), steroid and oxygen dependent, always on 10 mg of prednisone daily and antibiotics, currently on prophylactic azithromycin, hypertension, osteoarthritis, mixed hyperlipidemia, vitamin D deficiency, osteoporosis, glaucoma, history of left breast papilla, fibroid uterus requiring hysterectomy, presents to the emergency room with worsening shortness of breath over the past 3-4 weeks, worsening in the past 3-4 days, accompanied with some nausea, vomiting, and diarrhea. Patient will be admitted as an inpatient for the following acute issues: 1. Acute COPD exacerbation with history of chronic hypoxic respiratory failure, on chronic 2.5 liters of oxygen at all times and steroid dependent, chronically on 10 mg of prednisone. Patient has end-stage COPD. decrease solumedrol continue nebs and inhalers o2 to keep sat 88-92% 2. Pulmonary hypertension. PA pressure of 36 mmHg on echocardiogram in 2018. Recheck the echocardiogram. 3. Hypertension, on diltiazem and hydrochlorothiazide with holding parameters. 4. Active smoking. Still smokes one and one-half packs of cigarettes per day. Tobacco cessation counseling has been provided. Patient is given nicotine patch 21 mg daily. 5. Vitamin D deficiency. 6. Osteoporosis. At risk of falling. Patient should walk with a walker. Physical therapy has been consulted. 7. Gastroenteritis with c/o n/v/d. negative for coronavirus. GI panel. anti-emetics. CT abd/pelvisbut not tolerating po therefore no po contrast. Code status. Full code. VS, I&O, 24H, Fishbone Vital Signs/I&O Vital Signs Date Time Temp Pulse Resp B/P (MAP) Pulse Ox O2 Delivery O2 Flow Rate FiO2 02/11/21 06:00 97.9 105 18 123/79 (94) 96 Nasal Cannula 2.0 I&O- Last 24 Hours up to 6 AM 02/11/21 06:00 Intake Total 310 ml Output Total 600 ml Balance -290 ml Laboratory Data 24H LABS Laboratory Tests 2 02/10/21 12:50: Immature Granulocyte % (Auto) 0.5, Neutrophils (%) (Auto) 91.2H, Lymphocytes (%) (Auto) 6.1L, Monocytes (%) (Auto) 2.0, Eosinophils (%) (Auto) 0.0, Basophils (%) (Auto) 0.2, Neutrophils # (Auto) 11.0H, Lymphocytes # (Auto) 0.7L, Monocytes # (Auto) 0.2, Eosinophils # (Auto) 0.0, Basophils # (Auto) 0.0, Nucleated Red Blood Cells % (auto) 0.0, Anion Gap 4L, Glomerular Filtration Rate > 60.0, Calcium Level 10.0, Total Bilirubin 0.4, Direct Bilirubin 0.1, Aspartate Amino Transf (AST/SGOT) 9, Alanine Aminotransferase (ALT/SGPT) 16, Alkaline Phosphatase 119H, Total Creatine Kinase 47, Creatine Kinase MB 1.3, Creatine Kinase MB Relative Index 2.77, Troponin I < 0.02, Total Protein 6.8, Albumin 3.4, Albumin/Globulin Ratio 1.0L 02/10/21 14:59: POC pH (Misc Panel) 7.422, POC Base Excess (Misc Panel) 18.0H, POC Saturated Percent O2 (Misc) 96, POC pO2 (Misc Panel) 82.0, POC pCO2 (Misc Panel) 65.3*H, POC HCO3 (Misc Panel) 42.6H, POC Total CO2 (Misc Panel) 45.0H 02/10/21 16:29: Coronavirus (COVID-19)(PCR) NEGATIVE, Influenza Type A (RT-PCR) NEGATIVE, Influenza Type B (RT-PCR) NEGATIVE, Respiratory Syncytial Virus (PCR) NEGATIVE 02/10/21 23:58: Total Creatine Kinase 58, Creatine Kinase MB 1.5, Creatine Kinase MB Relative Index 2.59, Troponin I < 0.02 02/11/21 07:09: Nucleated Red Blood Cells % (auto) 0.0, Anion Gap 7L, Glomerular Filtration Rate > 60.0, Calcium Level 10.1, Total Creatine Kinase 62, Creatine Kinase MB 2.0, Creatine Kinase MB Relative Index 3.23, Troponin I < 0.02 CBC/BMP Laboratory Tests 02/10/21 12:50 02/11/21 07:09 VÍCTOR BURGER MD Feb 11, 2021 08:58
--- NOTE | 2021-02-11 09:33 | ECGEPIP ---
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
--- NOTE | 2021-02-11 09:52 | REP ---
INDICATION: abd pain n/v COMPARISON: None. TECHNIQUE: CT Scan of the abdomen and pelvis was performed without intravenous contrast. Sagittal and coronal reconstruction images performed. FINDINGS: Lung bases: Unremarkable. Liver: Grossly unremarkable. Gallbladder: Prior cholecystectomy. Spleen: Grossly unremarkable. Adrenals: Normal. Pancreas: Grossly unremarkable.. Kidneys: No hydronephrosis or nephrolithiasis. Ureters demonstrate no dilatation or calculus. Small and large bowel: There is sigmoid diverticulosis. No bowel inflammation is seen. There is no evidence of bowel obstruction.. Free fluid: None. Abdominal aorta: No aneurysm. Adenopathy: None. Appendix: Not inflamed. Osseous structures: Unremarkable. Pelvis: No mass. No bladder calculus seen. Prior hysterectomy. IMPRESSION: No CT evidence of acute pathology in the abdomen or pelvis. <Electronically signed by Gurjit Saab > 02/11/21 0944
[2021-02-11] MEDS: PANTOPRAZOLE 40MG VIAL (C9113 PER 1) IV SCH ×2 (10:24→20:09)
[2021-02-11] MEDS: NICOTINE 21MG/24HR 1 EA TRANSDERMAL TD SCH (10:26)
[2021-02-11] MEDS: ENOXAPARIN 40MG/0.4ML SYRINGE (J1650 PER 10MG) SC SCH (10:42)
[2021-02-11] MEDS: KCL 10MEQ/100ML SWI (KRUN) 10 MEQ in IV 1 EA IV SCH ×2 (13:00→13:53)
[2021-02-11 13:06] LABS: CPK CREATINE PHOSPHOKINASE 71 U/L (26-192); MB/CK RELATIVE INDEX 2.82 (< OR =4); TROPONIN I < 0.02 NG/ML (< 0.10)
[2021-02-11] MEDS: LORazepam 0.5 MG TAB PO PRN (13:52)
[2021-02-11] MEDS: ONDANSETRON 4MG/2ML VIAL IV SCH ×2 (13:53→18:13)
[2021-02-11 14:00] VITALS: BP 134/68
[2021-02-11] MEDS ORDERED: KCL 40MEQ in NS 1000ML 1,000 ML IV SCH (16:15)
[2021-02-11] MEDS: LATANOPROST 0.005% OPHTH SOLN 2.5 ML OU SCH ×2 (20:09)
[2021-02-11] MEDS: cefTRIAXone SOD 1 GM in D5W MINI-BAG PLUS 50 ML IV SCH (20:09)
--- NOTE | 2021-02-11 20:41 | IPNPDOC ---
Text Note Date of Service The patient was seen on 02/11/21. NOTE Alerted by nursing staff that patient had no documented code status. Discussed with patient, who states she wishes to be DNR/DNI and expresses understanding of what this decision entails. Code status has been entered into EMR. VS,Fishbone, I+O VS, Fishbone, I+O Laboratory Tests 02/11/21 07:09 Vital Signs Date Time Temp Pulse Resp B/P (MAP) Pulse Ox O2 Delivery O2 Flow Rate FiO2 02/11/21 19:56 Nasal Cannula 2.0 02/11/21 14:00 98.8 102 17 134/68 (90 93 I&O- Last 24 Hours up to 6 AM 02/11/21 06:00 Intake Total 310 ml Output Total 600 ml Balance -290 ml SHAHZAD FIGUEROA Feb 11, 2021 20:41
[2021-02-11 22:00] VITALS: BP 118/76
[2021-02-12] MEDS: ONDANSETRON 4MG/2ML VIAL IV SCH ×6 (00:01→23:03)
[2021-02-12] MEDS: methylPREDNISolone 125MG 2ML VIAL IV SCH ×5 (00:01→23:03)
[2021-02-12] MEDS: LEVALBUTEROL 1.25 MG/0.5 ML CONCENTRATE NEB INH SCH ×5 (00:04→16:48)
[2021-02-12] MEDS: LORazepam 0.5 MG TAB PO PRN ×3 (05:17→20:45)
[2021-02-12] MEDS: PERCOCET 5MG/325MG TAB PO PRN ×2 (05:17→20:52)
[2021-02-12] MEDS: LEVALBUTEROL 1.25 MG/0.5 ML CONCENTRATE NEB INH PRN ×2 (05:47→13:50)
[2021-02-12 06:00] VITALS: BP 124/75
[2021-02-12 06:35] LABS: HEMATOCRIT 43.3 % (36.0-47.0); HEMOGLOBIN 13.9 g/dl (12.0-15.5); MEAN CORPUSCULAR HEMOGLOBIN 29.6 pg (27.0-33.0); MEAN CORPUSCULAR HGB CONC 32.1 g/dl (32.0-36.5); MEAN CORPUSCULAR VOLUME 92.3 fl (80.0-96.0); PLATELET COUNT, AUTOMATED 301 10^3/uL (150-450); RED BLOOD COUNT 4.69 10^6/uL (4.00-5.40)
[2021-02-12 07:02] LABS: BLOOD UREA NITROGEN 31 MG/DL (7-18); CARBON DIOXIDE LEVEL 34 MEQ/L (21-32); CHLORIDE LEVEL 97 MEQ/L (98-107); CREATININE FOR GFR 0.75 MG/DL (0.55-1.30); GLOMERULAR FILTRATION RATE > 60.0 (>45); GLUCOSE, FASTING 125 MG/DL (70-100); POTASSIUM SERUM 3.6 MEQ/L (3.5-5.1); SODIUM LEVEL 136 MEQ/L (136-145)
[2021-02-12] MEDS: BUDESONIDE 180MCG INHALER (PULMICORT FLEXHALER) INH SCH (07:11)
[2021-02-12] MEDS: FORMOTEROL FUMARATE 20 MCG/2 ML INHALATION SOLUTION (PERFOROMIST) INH SCH ×2 (07:11→20:39)
[2021-02-12] MEDS: TIOTROPIUM INHALER/CAPSULE (SPIRIVA) INH SCH (07:11)
[2021-02-12] MEDS: NICOTINE 21MG/24HR 1 EA TRANSDERMAL TD SCH (09:21)
[2021-02-12] MEDS: ENOXAPARIN 40MG/0.4ML SYRINGE (J1650 PER 10MG) SC SCH (09:21)
[2021-02-12] MEDS: PANTOPRAZOLE 40MG VIAL (C9113 PER 1) IV SCH ×2 (09:21→20:46)
[2021-02-12] MEDS: LACTOBACILLUS ACIDOPHILUS CAP (BACID) PO SCH ×4 (09:21→20:45)
--- NOTE | 2021-02-12 11:00 | IPNPDOC ---
Date Seen The patient was seen on 02/12/21. Progress Note S: Still nauseous despite iv zofran. c/o 07/24 back painusually better w toradol. no c/o radicular pain. tripod positioning makes her breathing better last night, worse when she is supine. no cp,cough, fever.neg gi panel O: PE vitals/i/o reviewed see below GENERAL: tripod position over bedside tray no distress HEENT: Pupils are equally round and reactive to light and accommodation. Extraocular muscles are intact. No jugular venous distention (JVD). Poor dentition with missing teeth. moist mucous membranes. No JVD, thyromegaly, stridor, or cervical lymphadenopathy. LUNGS: Diminished Air entry is equal bilaterally. She has slight kyphoscoliosis. HEART: S1, S2,No murmurs, rubs, or gallops. No S3 noted. ABDOMEN: soft non distended hypoactive bowel sounds nontender no cvat EXTREMITIES: No cyanosis or clubbing. No pitting edema. LABORATORY DATA: see below Respiratory panel negative for coronavirus. CT chest: No pulmonary embolism, no pneumonia, no effusion. Chronic right upper and left upper lobe nodular densities. Hyperinflation consistent with COPD. ASSESSMENT AND PLAN: This is a 60-year-old female with pulmonary hypertension, 36 mmHg of previous echocardiogram in 2018, read by Dr. Mauro Espinosa, chronic hypoxic respiratory failure, on 2.5 liters of home oxygen via nasal cannula, chronic obstructive pulmonary disease (COPD), steroid and oxygen dependent, always on 10 mg of prednisone daily and antibiotics, currently on prophylactic azithromycin, hypertension, osteoarthritis, mixed hyperlipidemia, vitamin D deficiency, osteoporosis, glaucoma, history of left breast papilla, fibroid uterus requiring hysterectomy, presents to the emergency room with worsening shortness of breath over the past 3-4 weeks, worsening in the past 3-4 days, accompanied with some nausea, vomiting, and diarrhea. Patient will be admitted as an inpatient for the following acute issues: 1. Acute COPD exacerbation with history of chronic hypoxic respiratory failure, on chronic 2.5 liters of oxygen at all times and steroid dependent, chronically on 10 mg of prednisone. Patient has end-stage COPD. solumedrol taper iv ceftriaxone. inhalers o2 to keep sat 88-92% 2. Pulmonary hypertension. PA pressure of 36 mmHg on echocardiogram in 2018. echocardiogram pending report. 3. Hypertension, on diltiazem and hydrochlorothiazide with holding parameters. 4. Active smoking. Still smokes one and one-half packs of cigarettes per day. Tobacco cessation counseling has been provided. Patient is given nicotine patch 21 mg daily. 5. Vitamin D deficiency. 6. Osteoporosis. At risk of falling. Patient should walk with a walker. Physical therapy has been consulted. 7. Gastroenteritis with c/o n/v/d. negative for coronavirus. GI panel. anti-emetics. CT abd/pelvisneg iv zofran q4h 8.chronic back pain toradol ivf at 60ml/hr. Code status. Full code. VS, I&O, 24H, Fishbone Vital Signs/I&O Vital Signs Date Time Temp Pulse Resp B/P (MAP) Pulse Ox O2 Delivery O2 Flow Rate FiO2 02/12/21 09:28 83 124/75 02/12/21 06:00 98.3 18 95 Room Air 02/12/21 05:47 2.0 I&O- Last 24 Hours up to 6 AM 02/12/21 06:00 Intake Total 1530 ml Output Total 400 ml Balance 1130 ml Laboratory Data 24H LABS Laboratory Tests 2 02/11/21 12:05: Total Creatine Kinase 71, Creatine Kinase MB 2.0, Creatine Kinase MB Relative Index 2.82, Troponin I < 0.02 02/12/21 06:04: Nucleated Red Blood Cells % (auto) 0.0, Anion Gap 5L, Glomerular Filtration Rate > 60.0, Calcium Level 9.0 CBC/BMP Laboratory Tests 02/12/21 06:04 Microbiology Microbiology 02/11/21 Gastrointestinal Tract Panel (PCR) - Final, Complete VÍCTOR BURGER MD February 12, 2021 11:00
[2021-02-12] MEDS ORDERED: KCL 40MEQ IN D5/0.45NS 1000ML 1,000 ML IV SCH (11:15)
[2021-02-12] MEDS: KETOROLAC 30 MG/ML 1ML VIAL IV SCH ×3 (11:30→23:04)
[2021-02-12 14:00] VITALS: BP 118/82
[2021-02-12] MEDS ORDERED: PILL CUTTER 1 EACH XX PRN (18:40)
[2021-02-12] MEDS ORDERED: PROMETHAZINE INJ 25 MG/ML VIAL (J2550) IV ONE (18:45)
[2021-02-12] MEDS: COMBIVENT RESPIMAT 100-20MCG INHALER 4GM INH SCH ×2 (20:00→23:51)
[2021-02-12] MEDS: BUDESONIDE 0.5 MG/2 ML INHALATION SUSPENSION INH SCH (20:39)
[2021-02-12] MEDS: cefTRIAXone SOD 1 GM in D5W MINI-BAG PLUS 50 ML IV SCH (20:45)
[2021-02-12] MEDS: RAMELTEON 8 MG TAB (ROZEREM) PO PRN (20:45)
[2021-02-12] MEDS: LATANOPROST 0.005% OPHTH SOLN 2.5 ML OU SCH (20:46)
[2021-02-12] MEDS: METOCLOPRAMIDE 5 MG TAB PO SCH (21:07)
[2021-02-12 22:00] VITALS: BP 140/81
[2021-02-13] MEDS: COMBIVENT RESPIMAT 100-20MCG INHALER 4GM INH SCH ×5 (03:02→19:14)
[2021-02-13] MEDS: ONDANSETRON 4MG/2ML VIAL IV SCH ×6 (03:06→23:19)
[2021-02-13] MEDS: LEVALBUTEROL 1.25 MG/0.5 ML CONCENTRATE NEB INH PRN ×3 (03:59→09:35)
[2021-02-13] MEDS: methylPREDNISolone 125MG 2ML VIAL IV SCH ×4 (05:57→23:19)
[2021-02-13] MEDS: KETOROLAC 30 MG/ML 1ML VIAL IV SCH ×4 (05:58→23:19)
[2021-02-13 06:00] VITALS: BP 139/71
[2021-02-13 06:56] LABS: HEMATOCRIT 41.2 % (36.0-47.0); HEMOGLOBIN 13.1 g/dl (12.0-15.5); MEAN CORPUSCULAR HEMOGLOBIN 29.5 pg (27.0-33.0); MEAN CORPUSCULAR HGB CONC 31.8 g/dl (32.0-36.5); MEAN CORPUSCULAR VOLUME 92.8 fl (80.0-96.0); PLATELET COUNT, AUTOMATED 276 10^3/uL (150-450); RED BLOOD COUNT 4.44 10^6/uL (4.00-5.40); WHITE BLOOD COUNT 9.7 10^3/uL (4.0-10.0)
[2021-02-13] MEDS: TIOTROPIUM INHALER/CAPSULE (SPIRIVA) INH SCH (07:03)
[2021-02-13] MEDS: FORMOTEROL FUMARATE 20 MCG/2 ML INHALATION SOLUTION (PERFOROMIST) INH SCH ×2 (07:03→19:14)
[2021-02-13] MEDS: BUDESONIDE 0.5 MG/2 ML INHALATION SUSPENSION INH SCH ×2 (07:03→19:14)
[2021-02-13 07:12] LABS: BLOOD UREA NITROGEN 40 MG/DL (7-18); CALCIUM LEVEL 9.5 MG/DL (8.8-10.2); CARBON DIOXIDE LEVEL 32 MEQ/L (21-32); CHLORIDE LEVEL 100 MEQ/L (98-107); CREATININE FOR GFR 0.76 MG/DL (0.55-1.30); GLOMERULAR FILTRATION RATE > 60.0 (>45); GLUCOSE, FASTING 136 MG/DL (70-100); POTASSIUM SERUM 4.4 MEQ/L (3.5-5.1); SODIUM LEVEL 137 MEQ/L (136-145)
[2021-02-13] MEDS: METOCLOPRAMIDE 5 MG TAB PO SCH ×4 (08:13→20:32)
[2021-02-13] MEDS: LACTOBACILLUS ACIDOPHILUS CAP (BACID) PO SCH ×4 (08:13→20:32)
[2021-02-13] MEDS: PERCOCET 5MG/325MG TAB PO PRN ×2 (08:14→14:34)
[2021-02-13] MEDS: ENOXAPARIN 40MG/0.4ML SYRINGE (J1650 PER 10MG) SC SCH (08:14)
[2021-02-13] MEDS: NICOTINE 21MG/24HR 1 EA TRANSDERMAL TD SCH (08:14)
[2021-02-13] MEDS: PANTOPRAZOLE 40MG VIAL (C9113 PER 1) IV SCH ×2 (08:14→20:33)
[2021-02-13] MEDS: LORazepam 0.5 MG TAB PO PRN ×2 (09:36→23:19)
[2021-02-13] MEDS: LIDOCAINE 5% (LIDODERM) PATCH TD SCH (11:48)
[2021-02-13] MEDS: D5W/0.45% SODIUM CHLORIDE 1,000 ML IV SCH (11:48)
[2021-02-13 14:00] VITALS: BP 137/73
--- NOTE | 2021-02-13 16:55 | IPN ---
PROGRESS NOTE DATE: 02/13/2021 Patient's breathing is improved on high doses of steroids. She complains of persistent nausea without vomiting, tolerating a liquid diet and cottage cheese this morning, toast yesterday. Patient continues to complain of abdominal pain and chronic back pain without relief with current pain medications. She currently is afebrile. No complaints of chills. No vomiting this morning. She is on [id number] antiemetics. Back pain is chronic, rated at 10/10 today, worse when she ambulates, persistent even when she is lying down. Shortness of breath is better when she is in tripod positioning and slow deep breaths. Temperature 97.7, pulse 85, respiratory rate 18, blood pressure 139/71, 88% on 2 liters of nasal cannula. Generally: Patient is in mild distress. She does have 7-8 word conversational dyspnea, it takes her time to breathe, and currently in tripod positioning leaning over her bedside tray. No pallor or icterus. HEENT: No jugular venous distension (JVD) or thyromegaly. Moist mucous membranes. No cervical lymphadenopathy. Lungs: Diminished with prolonged expiration, clear with very faint expiratory wheezing, kyphoscoliosis. Heart: S1, S2, no S3. No murmurs, rubs, or gallops. Abdomen: Soft, nondistended. Positive bowel sounds times four quadrants. No rebound, guarding. No costovertebral (CVA) tenderness. Extremities: No cyanosis or clubbing. Skin: Warm, dry, well-perfused, pink in color. LABORATORY DATA: 02/13/2021: White count 9.7, hemoglobin 13, hematocrit 41, platelet count 276, sodium 137, potassium 4.4, chloride 100, bicarbonate 32, BUN 40, creatinine 0.76, glucose of 136. Input and output: Two bowel movements yesterday. ASSESSMENT AND PLAN: This is a 60-year-old female admitted on 02/10/2021, complains of shortness of breath with history of pulmonary hypertension, pulmonary artery (PA) pressure of 36 mmHg on echo done 2017, chronic hypoxic respiratory failure on 2.5 liters of home oxygen via nasal cannula, end-stage chronic obstructive pulmonary disease (COPD), steroid and oxygen dependent, always on 10 mg of prednisone and antibiotics at home, on prophylactic azithromycin, hypertension, osteoarthritis, mixed hyperlipidemia, vitamin D deficiency, osteoporosis, glaucoma, left breast biopsy which was negative, fibroid uterus requiring hysterectomy, admitted due to complaints of nausea, vomiting, abdominal pain, and diarrhea, and shortness of breath over the past 3-4 weeks, worsened in the past 3-4 days. ACUTE ISSUES: Are as follows: 1. Acute chronic obstructive pulmonary disease (COPD) exacerbation with end-stage chronic obstructive pulmonary disease (COPD) on chronic home oxygen, 2.5 liters, and chronic hypoxic respiratory failure, steroid and antibiotic dependent. Patient is improving significantly. She is continued on Solu-Medrol IV every 6 hours, IV ceftriaxone, and home nebulizers and bronchodilators. Saturations are being kept at 88-92%. 2. Pulmonary hypertension, complicating her care secondary to end-stage chronic obstructive pulmonary disease (COPD) on home oxygen. 3. Hypertension, on diltiazem and hydrochlorothiazide. Hydrochlorothiazide has been discontinued due to persistent diarrhea and abdominal pain. Currently on IV fluids. 4. Abdominal pain. CT abdomen and pelvis was negative. Patient had complained of diarrhea with negative gastrointestinal (GI) panel. She is continued on supportive care with IV fluids for now. 5. Vitamin D deficiency, chronic. 6. Osteoporosis. At risk of falling. Walks with a walker, assisted ambulation, physical therapy (PT) / occupational therapy (OT). 7. Gastroenteritis with nausea, vomiting, persistent diarrhea with negative gastrointestinal (GI) panel, negative CT abdomen and pelvis. On supportive care with IV fluids, monitoring of electrolytes and supplementing as needed. 8. Chronic back pain. Patient has been given intravenous Toradol with very little relief. We are trying to avoid opioids due to risk of carbon dioxide retention and hypercarbia. 9. Active tobacco abuse, on nicotine patch 21 mg daily. Tobacco cessation counseling has been provided. [facility]
[2021-02-13] MEDS: cefTRIAXone SOD 1 GM in D5W MINI-BAG PLUS 50 ML IV SCH (20:32)
[2021-02-13] MEDS: RAMELTEON 8 MG TAB (ROZEREM) PO PRN (20:32)
[2021-02-13] MEDS: LATANOPROST 0.005% OPHTH SOLN 2.5 ML OU SCH (20:33)
[2021-02-13] MEDS ORDERED: **NOTE PATIENT COMMENT** MISC XX SCH (21:00)
[2021-02-13 22:00] VITALS: BP 139/95
[2021-02-14] MEDS: PERCOCET 5MG/325MG TAB PO PRN ×2 (00:34→06:35)
[2021-02-14] MEDS: LEVALBUTEROL 1.25 MG/0.5 ML CONCENTRATE NEB INH PRN (00:46)
[2021-02-14] MEDS: COMBIVENT RESPIMAT 100-20MCG INHALER 4GM INH SCH ×4 (00:46→11:06)
[2021-02-14] MEDS: ONDANSETRON 4MG/2ML VIAL IV SCH ×3 (02:58→10:35)
[2021-02-14] MEDS: D5W/0.45% SODIUM CHLORIDE 1,000 ML IV SCH (02:59)
[2021-02-14] MEDS: methylPREDNISolone 125MG 2ML VIAL IV SCH (05:47)
[2021-02-14] MEDS: KETOROLAC 30 MG/ML 1ML VIAL IV SCH (05:47)
[2021-02-14 06:00] VITALS: BP 140/93
[2021-02-14 06:14] LABS: HEMATOCRIT 40.9 % (36.0-47.0); MEAN CORPUSCULAR HGB CONC 31.8 g/dl (32.0-36.5); MEAN CORPUSCULAR VOLUME 94.2 fl (80.0-96.0); PLATELET COUNT, AUTOMATED 271 10^3/uL (150-450); RED BLOOD COUNT 4.34 10^6/uL (4.00-5.40); WHITE BLOOD COUNT 8.7 10^3/uL (4.0-10.0)
[2021-02-14 06:35] LABS: BLOOD UREA NITROGEN 44 MG/DL (7-18); CARBON DIOXIDE LEVEL 35 MEQ/L (21-32); CHLORIDE LEVEL 99 MEQ/L (98-107); CREATININE FOR GFR 0.72 MG/DL (0.55-1.30); GLOMERULAR FILTRATION RATE > 60.0 (>45); GLUCOSE, FASTING 148 MG/DL (70-100); SODIUM LEVEL 137 MEQ/L (136-145)
[2021-02-14] MEDS: FORMOTEROL FUMARATE 20 MCG/2 ML INHALATION SOLUTION (PERFOROMIST) INH SCH (07:15)
[2021-02-14] MEDS: BUDESONIDE 0.5 MG/2 ML INHALATION SUSPENSION INH SCH (07:15)
[2021-02-14] MEDS: TIOTROPIUM INHALER/CAPSULE (SPIRIVA) INH SCH (07:16)
[2021-02-14] MEDS ORDERED: predniSONE 20 MG TAB PO SCH (09:00)
[2021-02-14] MEDS ORDERED: CEFDINIR 300 MG CAP (OMNICEF) PO SCH (09:00)
[2021-02-14] MEDS ORDERED: PRED10TA2 PO (10:35)
[2021-02-14] MEDS ORDERED: NICO14DI6 TOP (10:35)
[2021-02-14] MEDS: PANTOPRAZOLE 40MG VIAL (C9113 PER 1) IV SCH (10:35)
[2021-02-14] MEDS: LIDOCAINE 5% (LIDODERM) PATCH TD SCH (10:48)
[2021-02-14] MEDS: NICOTINE 21MG/24HR 1 EA TRANSDERMAL TD SCH (10:49)
[2021-02-14] MEDS: LACTOBACILLUS ACIDOPHILUS CAP (BACID) PO SCH (10:49)
[2021-02-14] MEDS: ENOXAPARIN 40MG/0.4ML SYRINGE (J1650 PER 10MG) SC SCH (10:49)
[2021-02-14] MEDS: METOCLOPRAMIDE 5 MG TAB PO SCH ×2 (10:50→11:02)
[2021-02-14 10:53] VITALS: BP 138/81
[2021-02-14] MEDS ORDERED: OXYC1TAB23 PO (10:59)
--- NOTE | 2021-02-14 13:36 | DS.PDOC ---
Discharge Summary General Date of Admission Feb 10, 2021 at 17:29 Date of Discharge 02/14/21 Discharge Summary DISCHARGE DIAGNOSES: Acute COPD exacerbation chronic hypoxic respiratory failure,on chronic 2.5 liters of oxygen at all times and steroid dependent Pulmonary hypertension. Hypertension Active smoking /Tobacco abuse Vitamin D deficiency. Osteoporosis. Gastroenteritis DISCHARGE MEDS: SEE BELOW DISCHARGE INSTRUCTIONS: PCP AND PULMaribell ASTUDILLO APPT 1WK HOSPITAL COURSE: This is a 60-year-old female admitted on 02/10/2021, complains of shortness of breath with history of pulmonary hypertension, pulmonary artery (PA) pressure of 36 mmHg on echo done 2017, chronic hypoxic respiratory failure on 2.5 liters of home oxygen via nasal cannula, end-stage chronic obstructive pulmonary disease (COPD), steroid and oxygen dependent, always on 10 mg of prednisone and antibiotics at home, on prophylactic azithromycin, hypertension, osteoarthritis, mixed hyperlipidemia, vitamin D deficiency, osteoporosis, glaucoma, left breast biopsy which was negative, fibroid uterus requiring hysterectomy, admitted due to complaints of nausea, vomiting, abdominal pain, and diarrhea, and shortness of breath over the past 3-4 weeks, worsened in the past 3-4 days. 1. Acute chronic obstructive pulmonary disease (COPD) exacerbation with end-stage chronic obstructive pulmonary disease (COPD) on chronic home oxygen, 2.5 liters, and chronic hypoxic respiratory failure, steroid and antibiotic dependent. Patient is improving significantly. She was given Solu-Medrol IV every 6 hours, IV ceftriaxone, and home nebulizers and bronchodilators. Saturations are being kept at 88-92%. prednisone taper at home and back to her chronic prednisone once completed. 2. Pulmonary hypertension, complicating her care secondary to end-stage chronic obstructive pulmonary disease (COPD) on home oxygen. 3. Hypertension, on diltiazem and hydrochlorothiazide. Hydrochlorothiazide has been discontinued due to persistent diarrhea and abdominal pain. 4. Abdominal pain. CT abdomen and pelvis was negative. Patient had complained of diarrhea with negative gastrointestinal (GI) panel. She is continued on supportive care with IV fluids for now. 5. Vitamin D deficiency, chronic. 6. Osteoporosis. At risk of falling. Walks with a walker, assisted ambulation, physical therapy (PT) / occupational therapy (OT). 7. Gastroenteritis with nausea, vomiting, persistent diarrhea with negative gastrointestinal (GI) panel, negative CT abdomen and pelvis. On supportive care with IV fluids, monitoring of electrolytes and supplementing as needed. 8. Chronic back pain. Patient has been given intravenous Toradol with very little relief. We are trying to avoid opioids due to risk of carbon dioxide retention and hypercarbia. 9. Active tobacco abuse, on nicotine patch 21 mg daily. Tobacco cessation counseling has been provided. DISCHARGE PE: VITALS: SEE BELOW Generally: AAOX 3 leaning over her bedside tray. No pallor or icterus. HEENT: No jugular venous distension (JVD) or thyromegaly. Moist mucous membranes. No cervical lymphadenopathy. Lungs: Diminished with prolonged expiration, clear kyphoscoliosis. Heart: S1, S2, no S3. No murmurs, rubs, or gallops. Abdomen: Soft, nondistended. Positive bowel sounds times four quadrants. No rebound, guarding. No costovertebral (CVA) tenderness. Extremities: No cyanosis or clubbing. Skin: Warm, dry, well-perfused, pink in color. DISCHARGE LABS, MICRO, IMAGING: SEE BELOW TIME SPENT ON DISCHARGE: 30M IN Vital Signs/I&Os Vital Signs Date Time Temp Pulse Resp B/P (MAP) Pulse Ox O2 Delivery O2 Flow Rate FiO2 02/14/21 10:53 83 138/81 02/14/21 07:05 18 02/14/21 06:35 Nasal Cannula 3.0 02/14/21 06:00 98.1 93 I&O- Last 24 Hours up to 6 AM 02/14/21 06:00 Intake Total 1940 ml Output Total 1125 ml Balance 815 ml Laboratory Data Labs 24H Laboratory Tests 2 02/14/21 05:39: Nucleated Red Blood Cells % (auto) 0.0, Anion Gap 3L, Glomerular Filtration Rate > 60.0, Calcium Level 10.0 CBC/BMP Laboratory Tests 02/14/21 05:39 Microbiology Microbiology 02/11/21 Gastrointestinal Tract Panel (PCR) - Final, Complete Discharge Medications Scheduled Azithromycin (Azithromycin) 250 Mg Tablet, 250 MG PO 3XW, (Reported) TUES, THURS, SAT Budesonide (Budesonide) 1 Mg/2 Ml Ampul.neb, 2 ML INH BID, (Reported) MIX WITH PERFOROMIST Diltiazem HCl (Diltiazem HCl) 30 Mg Tablet, 30 MG PO DAILY, (Reported) Ergocalciferol (Vitamin D2) (Vitamin D2) 50,000 Units Cap, 50,000 UNITS PO QWEEK, (Reported) SATURDAYS Formoterol Fumarate (Perforomist) 20 Mcg/2 Ml Vial.neb, 2 ML INH BID, (Reported) MIX WITH BUDESONIDE Hydrochlorothiazide (Hydrochlorothiazide) 12.5 Mg Tablet, 12.5 MG PO DAILY, (Reported) Latanoprost (Xalatan) 0.005% 2.5ML Drops, 1 DROP OU QHS, (Reported) Losartan/Hydrochlorothiazide (Losartan-Hctz 50-12.5 mg Tab) 1 Each Tablet, 1 TAB PO DAILY, (Reported) Nicotine (Nicotine Patch) 14 Mg Patch.td24, 1 PATCH TOP DAILY for smoking cessation Prednisone (Prednisone) 10 Mg Tablet, 10 MG PO TAPER Take 4 tabs daily x 3 days, then 3 tabs daily x 3 days, then 2 tabs daily x 3 days, then 1 tab daily x 3 days and stop Tiotropium [place] (Spiriva Respimat) 4 Gm Mist.inhal, 2 PUFFS INH DAILY, (Reported) Scheduled PRN Ipratropium/Albuterol Sulfate (Combivent Respimat 20-100 Mcg) 4 Gm Mist.inhal, 1 PUFF INH QID PRN for SHORTNESS OF BREATH, (Reported) Ipratropium/Albuterol Sulfate (Iprat-Albut 0.5-3(2.5) mg/3 ml) 3 Ml Ampul.neb, 3 ML INH Q4H PRN for SHORTNESS OF BREATH, (Reported) Lorazepam (Lorazepam) 1 Mg Tablet, 0.5 MG PO BID PRN for ANXIETY, (Reported) MAY TAKE 1/2 TO 1 TABLET BID PRN Morphine Sulfate (Morphine Sulfate) 100 Mg/5 Ml Solution, 0.5 ML PO Q3HP PRN for DYSPNEA, (Reported) Oxycodone HCl/Acetaminophen (Oxycodone-Acetaminophen 5-325) 1 Each Tablet, 1 TAB PO QIDP PRN for pain Polyethylene Glycol 3350 (Miralax) 119 Gm Powder, 17 GM PO DAILY PRN for C ONSTIPATION, (Reported) Allergies Coded Allergies: SEASONAL ALLERGIES (Verified Allergy, Mild, 11/08/20) codeine (Verified Adverse Reaction, Unknown, abdominal pain/nausea/vomiting, 03/24/20) VÍCTOR BURGER MD February 14, 2021 13:33
== END 2021-02-14 12:50 | disposition home or self-care (01) | DRG 140 ==
LOC: M ED 12:21 → M ED INP 17:29 → ENRESERV 18:44 → M MSPAV 21:56
PROVIDERS: ADMIT General Practice; ATTEND General Practice
DX: J44.1 Chronic obstructive pulmonary disease with (acute) exacerbation (principal); J96.11 Chronic respiratory failure with hypoxia; I27.20 Pulmonary hypertension, unspecified; Z99.81 Dependence on supplemental oxygen; I10 Essential (primary) hypertension; K52.9 Noninfective gastroenteritis and colitis, unspecified; F17.210 Nicotine dependence, cigarettes, uncomplicated; E55.9 Vitamin D deficiency, unspecified; M81.0 Age-related osteoporosis without current pathological fracture; Z79.52 Long term (current) use of systemic steroids; Z79.899 Other long term (current) drug therapy; Z88.5 Allergy status to narcotic agent; M19.90 Unspecified osteoarthritis, unspecified site; E78.2 Mixed hyperlipidemia; H40.9 Unspecified glaucoma; L21.9 Seborrheic dermatitis, unspecified

== ENCOUNTER → 2021-02-21 | Outpatient (REF) | payer OTHER, MEDICAID ==
[~2021-02-21] MED LIST changes: +BACTDSTA PO; +IPRA0.00 INH; +LORA1TAB4 PO; +MIRA3350 PO; +NICO14DI6 TOP; +ONDA4TAB6 PO; +OXYC1TAB23 PO; -SULF1TAB93 PO
== END ==
LOC: M PLALAB 09:51
PROVIDERS: ATTEND Obstetrics & Gynecology
DX: N87.9 Dysplasia of cervix uteri, unspecified (principal)

== ENCOUNTER 2021-03-04 00:42 | Observation (INO) | payer OTHER, MEDICAID ==
[~2021-03-04] VITALS: Ht 162.6 cm; Wt 59.5 kg
[2021-03-04 01:13] LABS: BASO % 0.1 % (0.0-1.0); HEMATOCRIT 44.9 % (36.0-47.0); HEMOGLOBIN 13.6 g/dl (12.0-15.5); LYMPH # 1.7 10^3/uL (1.5-5.0); LYMPH % 12.3 % (24.0-44.0); MEAN CORPUSCULAR HEMOGLOBIN 29.8 pg (27.0-33.0); MEAN CORPUSCULAR HGB CONC 30.3 g/dl (32.0-36.5); MEAN CORPUSCULAR VOLUME 98.2 fl (80.0-96.0); MONO # 0.5 10^3/uL (0.0-0.8); NEUTROPHILS # 11.1 10^3/uL (1.5-8.5); NEUTROPHILS % 83.2 % (36.0-66.0); PLATELET COUNT, AUTOMATED 278 10^3/uL (150-450); RED BLOOD COUNT 4.57 10^6/uL (4.00-5.40); WHITE BLOOD COUNT 13.4 10^3/uL (4.0-10.0)
[2021-03-04 01:50] LABS: ALT/SGPT 53 U/L (12-78); BILIRUBIN,DIRECT 0.1 MG/DL (0.0-0.2); BILIRUBIN,TOTAL 0.1 MG/DL (0.2-1.0); BLOOD UREA NITROGEN 10 MG/DL (7-18); CALCIUM LEVEL 8.4 MG/DL (8.8-10.2); CARBON DIOXIDE LEVEL 44 MEQ/L (21-32); CHLORIDE LEVEL 95 MEQ/L (98-107); CK-MB VALUE MASS 1.6 NG/ML (<3.6); CPK CREATINE PHOSPHOKINASE 28 U/L (26-192); CREATININE FOR GFR 0.39 MG/DL (0.55-1.30); GLOMERULAR FILTRATION RATE > 60.0 (>45); GLUCOSE, FASTING 106 MG/DL (70-100); MB/CK RELATIVE INDEX 5.71 (< OR =4); NT-PRO BNP 204 PG/ML (<125); SODIUM LEVEL 139 MEQ/L (136-145); THYROXINE (T4) 6.9 UG/DL (4.5-12.0); TOTAL PROTEIN 6.1 GM/DL (6.4-8.2); TROPONIN I < 0.02 NG/ML (< 0.10)
--- NOTE | 2021-03-04 04:53 | REPVR ---
PROCEDURE INFORMATION: Exam: XR Chest Exam date and time: 03/04/2021 3:45 AM Age: 60 years old Clinical indication: Other: Dyspnea/cough TECHNIQUE: Imaging protocol: XR of the chest. Views: 1 view. COMPARISON: [facility] CHEST X-RAY 02/10/2021 12:48 PM FINDINGS: Lungs: There is a 1 cm right mid lung zone nodule. Pleural spaces: There is biapical pleural thickening and scarring. There is a 1.5 cm pleural based density in the left lung apex. Heart/Mediastinum: Unremarkable. No cardiomegaly. Bones/joints: There is thoracolumbar spine scoliosis. IMPRESSION: 1. No focal consolidation. 2. 1 cm right mid lung zone nodule and 1.5 cm left apical pleural based density. Underlying neoplastic etiology cannot be excluded. These were seen on CT scan of February 10, 2021. Follow-up and management is recommended as per the findings on CT scan. PET-CT scan or tissue biopsy may be considered as per Fleischner Society recommendations. Electronically signed by: Russ Hutton On 03/04/2021 04:52:32 AM
[2021-03-04] MEDS ORDERED: IPRATROPIUM 0.5MG/ALBUTEROL 2.5MG INH SOL UD 3ML (DUONEB) NEB ONE (06:10)
[2021-03-04] MEDS ORDERED: METOCLOPRAMIDE INJ 10MG/2ML VIAL (J2765 PER 1) IV ONE (06:45)
[2021-03-04] MEDS ORDERED: methylPREDNISolone 125MG 2ML VIAL IV ONE (08:10)
[2021-03-04] MEDS ORDERED: IPRATROPIUM 0.5MG/ALBUTEROL 2.5MG INH SOL UD 3ML (DUONEB) NEB PRN (08:15)
[2021-03-04] MEDS ORDERED: NS 500 ML IV ONE (08:15)
--- NOTE | 2021-03-04 08:58 | REP ---
INDICATION: abdominal pain. COMPARISON: 02/11/2021 TECHNIQUE: Axial contrast-enhanced images from the lung bases to the pubic symphysis using oral and 100 cc Isovue 370 intravenous contrast material. Coronal and sagittal reformations obtained.. This CT examination was performed using the following dose reduction techniques: Automated exposure control, adjustment of mA and/or kv according to the patient's size, and the use of iterative reconstruction technique. FINDINGS: Lung bases are clear. Visualized heart and pericardium normal. Liver, spleen, pancreas, bilateral adrenal glands and kidneys are normal. Evidence for prior cholecystectomy. The enteric system is without obstruction or acute inflammatory process. Normal terminal ileum and appendix are identified in the right lower quadrant. Fecal stasis and possible constipation should be correlated clinically. Sigmoid diverticulosis noted without acute diverticulitis. Pelvis demonstrates normal bladder and prior hysterectomy. No ascites. No free air. No intraperitoneal or retroperitoneal adenopathy. Atherosclerotic changes to the aorta and vasculature without aneurysm or dissection. Musculoskeletal structures are intact and without acute osseous abnormality. IMPRESSION: No acute abdominopelvic pathology appreciated. Fecal stasis and possible constipation should be correlated clinically. Diverticulosis without acute diverticulitis. <Electronically signed by Prashanth Carranza > 03/04/21 [id number]
[2021-03-04] MEDS ORDERED: PRED10TA2 PO (09:27)
[2021-03-04] MEDS ORDERED: LORA1TAB4 PO (09:27)
[2021-03-04] MEDS ORDERED: VENTAER INH (09:27)
[2021-03-04 11:44] LABS: ABG BASE EXCESS 14.3 (-2.0-2.0); ABG HCO3 42.9 MEQ/L (22.0-26.0); ABG O2 SATURATION 98.2 % (95.0-99.0); ABG PARTIAL PRESSURE CO2 72.4 mmHg (35.0-45.0); ABG PARTIAL PRESSURE O2 123.4 mmHg (75.0-100.0); ABG STANDARD HCO3 38.2 MEQ/L (22.0-26.0); ABG TOTAL CO2 45.2 MEQ/L (23.0-31.0); ABG pH (ARTERIAL) 7.391 UNITS (7.350-7.450)
[2021-03-04] MEDS ORDERED: MOM 30ML SUSPENSION UDC PO PRN (12:00)
[2021-03-04] MEDS ORDERED: MORPHINE 10MG/0.5ML ORAL CONCENTRATE SOLUTION U/D PO PRN (12:00)
[2021-03-04] MEDS ORDERED: ALBUTEROL 90 MCG/ACT 8GM HFA INHALER INH PRN (12:00)
[2021-03-04] MEDS ORDERED: FUROSEMIDE 20MG/2ML VIAL (J1940) IV ONE (12:00)
[2021-03-04] MEDS ORDERED: MIRALAX *UNIT DOSE* 17GM PACKET PO PRN (12:00)
[2021-03-04] MEDS ORDERED: COMBIVENT RESPIMAT 100-20MCG INHALER 4GM INH PRN (12:00)
[2021-03-04] MEDS ORDERED: ACETAMINOPHEN TAB 650MG DOSE (2X325MG) PO PRN (12:00)
[2021-03-04] MEDS: FORMOTEROL FUMARATE 20 MCG/2 ML INHALATION SOLUTION (PERFOROMIST) INH SCH ×2 (12:27→21:00)
[2021-03-04] MEDS: LORazepam 0.5 MG TAB PO SCH ×2 (13:21→20:47)
[2021-03-04] MEDS: IPRATROPIUM 0.5MG/ALBUTEROL 2.5MG INH SOL UD 3ML (DUONEB) INH PRN ×2 (14:03→21:04)
--- NOTE | 2021-03-04 14:45 | HPEPDOC ---
[facility] Medical History & Physical Date of Admission March 04, 2021 Date of Service: March 04, 2021 Primary Care Physician: Charo Sanches Attending Physician: HENRY SHAW MD History and Physical CHIEF COMPLAINT: Shortness of breath HISTORY OF PRESENT ILLNESS: Patient is a 60 year old female with a past medical history significant for endstage COPD steroid dependent on chronic supplemental oxygen on palliative care, HTN, osteoarthritis, and pulmonary hypertension who presented to the [facility] ER with complaint of shortness of breath. Patient stated that she had awoken this morning and felt short of breath. She denied any chest pain. She denied any cough, fevers, or chills. Patient states that she was recently hospitalized at [facility] for shortness of breath and was treated for a COPD exacerbation. Since her discharge she has had on and off shortness of breath. She had called her PCP yesterday who increased her prednisone dose to 15mg daily. Additionally the patient stated that she was recently started on Palliative care for End-Stage COPD. In addition to her shortness of breath the patient also admits to abdominal pain that she describes as crampy. She does state that she has had difficulty with a bowel movement lately. In the ED the patient was vitally stable. A chest x-ray obtained demonstrated a 1cm right mid lung zone nodule and 1.5cm left apical pleural based density. There was otherwise no areas of consolidation. Per ER staff, the patient was wheezing on arrival. She was given nebulized treatment as well as IV solumedrol. The patient reportedly felt better. An ABG obtained demonstrated a PCO2 of 72.4 but a pH of 7.39. A CT abdomen and pelvis was obtained as the patient had complained of abdominal pain. There was no acute pathology but there was fecal stasis and possible constipation. Hospitalist service was consulted and the patient was admitted to observation status PAST MEDICAL HISTORY: 1. End Stage COPD on chronic steroids and supplemental Oxygen 2.0L 2. HTN 3. Osteoarthritis 4. Pulmonary Hypertension 5. Grade 1 Left ventricular diastolic dysfunction, LVEF 75% 6. Mixed Hyperlipidemia 7. Osteoporosis 8. Vitamin D Deficiency 9. Glaucoma PAST SURGICAL HISTORY: 1. D&C 2. Bilateral tubal ligation 3. Left breast lumpectomy 4. Hysterectomy due to fibroid uterus 5. Cholecystectomy SOCIAL HISTORY: Patient lives at home with her , son and his girlfriend. Patients son is her caregiver and assists her with her ADLs. She is a current smoker. She started smoking at the age of 13 and smokes about 1 1/2 ppd. She denies any alcohol use. She denies any IV or illicit drug use. Her PCP is Charo Law. Her Educational Interpreter is Dr. Christiansen FAMILY HISTORY: Patients mother has a history of breast cancer and asthma. Her father passed from Alzheimer dementia. Patients sister has a history of asthma and breast cancer ALLERGIES: Please see below. REVIEW OF SYSTEMS: CONSTITUTIONAL: Denies fevers, chills, unintentional weightloss or weight gain. Denies night sweats HEENT: Denies dysphagia or odynophagia CARDIOVASCULAR: Denies chest pain or pressure. Denies palpitations RESPIRATORY: Admits to chronic shortness of breath. Denies cough. Denies wheeze. Denies sputum production GASTROINTESTINAL: Admits to crampy abdominal pain. Admits to constipation. Denies diarrhea. Admits to some nausea. Denies vomiting GENITOURINARY: Denies dysuria or increased frequency. Denies urgency SKIN: Denies any rashes or lesions MUSCULOSKELETAL: Denies any muscle weakness NEUROLOGICAL: Denies changes in speech or gait from baseline PSYCHIATRIC: Denies depression. Admits to anxiety ENDOCRINE: Denies heat intolerance or cold intolerance. Denies diabetes HEMATOLOGIC/LYMPHATIC: Denies easy bruising or bleeding. Denies history of DVT or PE HOME MEDICATIONS: Please see below. PHYSICAL EXAMINATION: VITAL SIGNS: Temperature 97.2 pulse 96, respiratory rate 18, blood pressure 123/67, pulse oximetry 96% on 2L NC GENERAL APPEARANCE: Awake, alert, and oriented. Appears in no acute distress. Sitting up comfortably in chair HEENT: Atraumatic, normocephalic. Eyes are nonicteric. Trachea is midline. Mucous membranes are pink and moist CARDIOVASCULAR: Normal S1, S2. Regular rate and rhythm. No clicks rubs or murmurs LUNGS: Diminished breath sounds throughout with increased expiratory time. No wheezing. No rhonchi. No rales. Symmetric chest expansion. No accessory muscle use ABDOMEN: Soft, nondistended. Mild tenderness to the LLQ. No rebound tenderness or guarding. Slightly hypoactive bowel sounds EXTREMITIES: Trace bilateral lower extremity edema. Full and equal pulses in bilateral upper and lower extremities NEUROLOGICAL: No focal neurological deficits PSYCHIATRIC: Mood and affect appear appropriate LABORATORY DATA: See below. IMAGING: PROCEDURE INFORMATION: Exam: XR Chest Exam date and time: 03/04/2021 3:45 AM Age: 60 years old Clinical indication: Other: Dyspnea/cough TECHNIQUE: Imaging protocol: XR of the chest. Views: 1 view. COMPARISON: [facility] CHEST X-RAY 02/10/2021 12:48 PM FINDINGS: Lungs: There is a 1 cm right mid lung zone nodule. Pleural spaces: There is biapical pleural thickening and scarring. There is a 1.5 cm pleural based density in the left lung apex. Heart/Mediastinum: Unremarkable. No cardiomegaly. Bones/joints: There is thoracolumbar spine scoliosis. IMPRESSION: 1. No focal consolidation. 2. 1 cm right mid lung zone nodule and 1.5 cm left apical pleural based density. Underlying neoplastic etiology cannot be excluded. These were seen on CT scan of February 10, 2021. Follow-up and management is recommended as per the findings on CT scan. PET-CT scan or tissue biopsy may be considered as per Fleischner Society recommendations. Electronically signed by: Russ Hutton On 03/04/2021 04:52:32 AM INDICATION: abdominal pain. COMPARISON: 02/11/2021 TECHNIQUE: Axial contrast-enhanced images from the lung bases to the pubic symphysis using oral and 100 cc Isovue 370 intravenous contrast material. Coronal and sagittal reformations obtained.. This CT examination was performed using the following dose reduction techniques: Automated exposure control, adjustment of mA and/or kv according to the patient's size, and the use of iterative reconstruction technique. FINDINGS: Lung bases are clear. Visualized heart and pericardium normal. Liver, spleen, pancreas, bilateral adrenal glands and kidneys are normal. Evidence for prior cholecystectomy. The enteric system is without obstruction or acute inflammatory process. Normal terminal ileum and appendix are identified in the right lower quadrant. Fecal stasis and possible constipation should be correlated clinically. Sigmoid diverticulosis noted without acute diverticulitis. Pelvis demonstrates normal bladder and prior hysterectomy. No ascites. No free air. No intraperitoneal or retroperitoneal adenopathy. Atherosclerotic changes to the aorta and vasculature without aneurysm or dissection. Musculoskeletal structures are intact and without acute osseous abnormality. IMPRESSION: No acute abdominopelvic pathology appreciated. Fecal stasis and possible constipation should be correlated clinically. Diverticulosis without acute diverticulitis. MICROBIOLOGY: Please see below. ASSESSMENT: Patient is a 60 year old female with a past medical history significant for end stage COPD on chronic steroids, 2L NC, and palliative care, pulmonary HTN, and osteoarthritis who presented to the [facility] ER with complaint of shortness of breath . PLAN: 1. Shortness of breath likely 2/2 End-stage COPD -Patient presented with an episode of shortness of breath this morning. She currently feels at her baseline. She was given nebulizer and IV solumedrol in the ED. She does not appear to be in an acute COPD exacerbation. She does however, have end-stage COPD and was fairly recently started on palliative care with Roxanol and Ativan. It is likely that the patients sensation of shortness of breath is secondary to her end-stage COPD as she is not hypoxic. -ABG did demonstrate a hypercarbia however her pH is within normal range. Her O2 is elevated. Her CO2 retention is likely multifactorial to over oxygenation as well as the use of Roxanol and Ativan. These medications can help reduce air hunger but overall suppress respiratory drive. -Will place O2 therapy orders for 88-92%. -Continue current home inhalers and 15mg Prednisone. -Will continue Roxanol and Ativan for palliative care of end-stage COPD symptoms -Continue Azithromycin 3x a week for prophylaxis -Patient will be admitted for observation 2. Abdominal Pain likely secondary to constipation -CT abdomen and pelvis negative for any acute pathology. Likely constipation. Labs are otherwise normal. Additionally she was recently started on Roxanol which can cause constipation -Will start a bowel regimen 3. Pulmonary HTN -Patient has trace bilateral lower extremity edema. She was previously on L asix outpatient but was discontinued. Will give 20mg IV lasix once 4. Hypertension -Continue Diltiazem 5. Lung nodules on Chest imaging -Patient has a 1cm right mid lung zone nodule and a 1.5 cm left apical pleural based density. She follows with Dr. Christiansen for Pulmonary medicine. Patient stated that she was aware that she had one nodule. They had previously attempted to biopsy a lung nodule but due to the location they were unable to obtain a biopsy. Patient states that she was not aware of a second nodule. -Patient will need to follow-up outpatient for second nodule. Given her End-s tage COPD there is likely not much that can be done 6. DVT prophylaxis -Lovenox Disposition: - Patient admitted for observation. - Discharge in 24 hours Vital Signs Vital Signs Date Time Temp Pulse Resp B/P (MAP) Pulse Ox O2 Delivery O2 Flow Rate FiO2 03/04/21 13:30 102 20 128/82 (97) 94 Nasal Cannula 2.0 03/04/21 06:00 97.2 03/04/21 01:11 98 Laboratory Data Labs 24H Laboratory Tests 2 03/04/21 01:04: Immature Granulocyte % (Auto) 0.4, Neutrophils (%) (Auto) 83.2H, Lymphocytes (%) (Auto) 12.3L, Monocytes (%) (Auto) 4.0, Eosinophils (%) (Auto) 0.0, Basophils (%) (Auto) 0.1, Neutrophils # (Auto) 11.1H, Lymphocytes # (Auto) 1.7, Monocytes # (Auto) 0.5, Eosinophils # (Auto) 0.0, Basophils # (Auto) 0.0, Nucleated Red Blood Cells % (auto) 0.0, Anion Gap 0L, Glomerular Filtration Rate > 60.0, Lactic Acid Level 1.3, Calcium Level 8.4L, Total Bilirubin 0.1L, Direct Bilirubin 0.1, Aspartate Amino Transf (AST/SGOT) 11, Alanine Aminotransferase (ALT/SGPT) 53, Alkaline Phosphatase 101, Total Creatine Kinase 28, Creatine Kinase MB 1.6, Creatine Kinase MB Relative Index 5.71H, Troponin I < 0.02, BO-Ezi-W-Type Natriuretic Peptide 204H, Total Protein 6.1L, Albumin 3.0L, Albumin/Globulin Ratio 1.0L, Thyroid Stimulating Hormone (TSH) 1.630, Thyroxine (T4) 6.9 03/04/21 11:29: Blood Gas Bicarbonate Standard 38.2H, Arterial Blood pH 7.391, Arterial Blood Partial Pressure CO2 72.4*H, Arterial Blood Partial Pressure O2 123.4H, Arterial Blood Total CO2 45.2H, Arterial Blood HCO3 42.9H, Arterial Blood Base Excess 14.3H, Arterial Blood Oxygen Saturation 98.2 CBC/BMP Laboratory Tests 03/04/21 01:04 Microbiology Microbiology 03/04/21 Respiratory Virus Panel (PCR) (SHERRI) - Final, Complete 03/04/21 Blood Culture, Received Pending Home Medications Scheduled Azithromycin (Azithromycin) 250 Mg Tablet, 250 MG PO 3XW TUES, THURS, SAT Budesonide (Budesonide) 1 Mg/2 Ml Ampul.neb, 2 ML INH BID MIX WITH PERFOROMIST Diltiazem HCl (Diltiazem HCl) 30 Mg Tablet, 30 MG PO DAILY Ergocalciferol (Vitamin D2) (Vitamin D2) 50,000 Units Cap, 50,000 UNITS PO QWEEK [place] Formoterol Fumarate (Perforomist) 20 Mcg/2 Ml Vial.neb, 2 ML INH BID MIX WITH BUDESONIDE Latanoprost (Xalatan) 0.005% 2.5ML Drops, 1 DROP OU QHS Lorazepam (Lorazepam) 1 Mg Tablet, 0.5 MG PO BID Lorazepam (Lorazepam) 1 Mg Tablet, 1 MG PO QHS Losartan/Hydrochlorothiazide (Losartan-Hctz 50-12.5 mg Tab) 1 Each Tablet, 1 TAB PO DAILY Prednisone (Prednisone) 10 Mg Tablet, 15 MG PO DAILY Tiotropium [place] (Spiriva Respimat) 4 Gm Mist.inhal, 2 PUFFS INH DAILY Scheduled PRN Albuterol Sulfate (Ventolin Hfa) 18 Gm Hfa.aer.ad, 2 PUFFS INH QID PRN for SHORTNESS OF BREATH Ipratropium/Albuterol Sulfate (Combivent Respimat 20-100 Mcg) 4 Gm Mist.inhal, 1 PUFF INH QID PRN for SHORTNESS OF BREATH Ipratropium/Albuterol Sulfate (Iprat-Albut 0.5-3(2.5) mg/3 ml) 3 Ml Ampul.neb, 3 ML INH Q4H PRN for SHORTNESS OF BREATH Morphine Sulfate (Morphine Sulfate) 100 Mg/5 Ml Solution, 0.5 ML PO Q3HP PRN for DYSPNEA MAY TAKE 0.75ML-1ML, PATIENT STATES SHE USUALLY TAKES LESS Polyethylene Glycol 3350 (Miralax) 119 Gm Powder, 17 GM PO DAILY PRN for CONSTIPATION Allergies Coded Allergies: SEASONAL ALLERGIES (Verified Allergy, Mild, 11/08/20) codeine (Verified Adverse Reaction, Unknown, abdominal pain/nausea/vomiting, 03/24/20) A-FIB/CHADSVASC A-FIB History Current/History of A-Fib/PAF?: No GME ATTESTATION GME ATTESTATION My faculty preceptor for this patient encounter was physically present during the encounter and was fully available. All aspects of the patient interview, examination, medical decision making process, and medical care plan development were reviewed and approved by the faculty preceptor. The faculty preceptor is aware and concurs with the plan as stated in the body of this note and will attest to such by his/her cosignature. ATTENDING NOTE I, Henry Shaw, have independently examined this patient and performed my own physical exam, as well as reviewed the documentation and edited where necessary. I have discussed in detail with the resident / student the findings and plan of treatment as documented by the resident / student and edited their note. I agree with their findings and treatment plan and have edited their documentation. I will continue to follow the patient during this hospital stay. FRANCESCO CHANDLER DO March 04, 2021 14:45 HENRY SHAW MD March 04, 2021 15:06
[2021-03-04] MEDS: DOCUSATE SODIUM 100MG CAPSULE PO SCH ×2 (15:23→20:47)
[2021-03-04 16:00] VITALS: BP 113/71
--- NOTE | 2021-03-04 20:31 | ECGEPIP ---
[facility] - ED Test Date: 2021-03-04 Pat Name: BILL SHIELDS Department: Room: - Gender: Female [place] Support Worker: HC : 1960 Requested By: FRANCESCO Hodge Order Number: [id number] Reading MD: Destinee Shea Measurements Intervals [place] Rate: 102 P: 79 TX: 140 QRS: -35 QRSD: 124 T: 68 QT: 360 QTc: 469 Interpretive Statements Sinus tachycardia Left axis deviation Right bundle branch block lafb similar 02/10/21 Electronically Signed on 03-04-2021 20:31:36 EDT by Destinee Shea
[2021-03-04] MEDS ORDERED: LORazepam 1 MG TAB PO SCH (21:00)
[2021-03-04] MEDS ORDERED: LATANOPROST 0.005% OPHTH SOLN 2.5 ML OU SCH (21:00)
[2021-03-04 22:00] VITALS: BP 118/72
[2021-03-05] MEDS: IPRATROPIUM 0.5MG/ALBUTEROL 2.5MG INH SOL UD 3ML (DUONEB) INH PRN ×4 (01:15→11:11)
[2021-03-05 06:00] VITALS: BP 137/88
[2021-03-05 06:34] LABS: HEMOGLOBIN 13.1 g/dl (12.0-15.5); MEAN CORPUSCULAR HEMOGLOBIN 29.9 pg (27.0-33.0); MEAN CORPUSCULAR HGB CONC 31.2 g/dl (32.0-36.5); MEAN CORPUSCULAR VOLUME 95.9 fl (80.0-96.0); PLATELET COUNT, AUTOMATED 298 10^3/uL (150-450); RED BLOOD COUNT 4.38 10^6/uL (4.00-5.40); WHITE BLOOD COUNT 13.5 10^3/uL (4.0-10.0)
[2021-03-05 07:01] LABS: BLOOD UREA NITROGEN 20 MG/DL (7-18); CALCIUM LEVEL 9.6 MG/DL (8.8-10.2); CARBON DIOXIDE LEVEL 43 MEQ/L (21-32); CHLORIDE LEVEL 95 MEQ/L (98-107); CREATININE FOR GFR 0.49 MG/DL (0.55-1.30); GLOMERULAR FILTRATION RATE > 60.0 (>45); GLUCOSE, FASTING 95 MG/DL (70-100); POTASSIUM SERUM 3.8 MEQ/L (3.5-5.1); SODIUM LEVEL 140 MEQ/L (136-145)
[2021-03-05] MEDS: LORazepam 0.5 MG TAB PO SCH (08:51)
[2021-03-05] MEDS: DOCUSATE SODIUM 100MG CAPSULE PO SCH (08:52)
[2021-03-05 08:56] VITALS: BP 137/88
[2021-03-05] MEDS ORDERED: ENOXAPARIN 40MG/0.4ML SYRINGE (J1650 PER 10MG) SC SCH (09:00)
[2021-03-05] MEDS ORDERED: AZITHROMYCIN 250MG TABLET PO SCH (09:00)
[2021-03-05] MEDS ORDERED: predniSONE 10 MG TAB PO SCH (09:00)
[2021-03-05] MEDS ORDERED: NICOTINE 21MG/24HR 1 EA TRANSDERMAL TD SCH (09:00)
[2021-03-05] MEDS: FORMOTEROL FUMARATE 20 MCG/2 ML INHALATION SOLUTION (PERFOROMIST) INH SCH (11:11)
--- NOTE | 2021-03-05 14:00 | DS.PDOC ---
Discharge Summary General Date of Admission March 04, 2021 at 11:55 Date of Discharge 03/05/21 Primary Care Physician: Charo Sanches Attending Physician: HERNY SHAW MD Discharge Summary PROCEDURES PERFORMED DURING STAY: [None]. ADMITTING DIAGNOSES: 1. Shortness of breath 2/2 End-stage COPD 2. Abdominal Pain 2/2 constipation 3. Pulmonary HTN 4. Lung Nodules on CT imaging DISCHARGE DIAGNOSES: 1. Shortness of breath 2/2 End-stage COPD 2. Abdominal Pain 2/2 constipation 3. Pulmonary HTN 4. Lung Nodules on CT imaging COMPLICATIONS/CHIEF COMPLAINT: Shortness Of Breath. HISTORY OF PRESENT ILLNESS: Patient is a 60 year old female with a past medical history significant for endstage COPD steroid dependent on chronic supplemental oxygen on palliative care, HTN, osteoarthritis, and pulmonary hypertension who presented to the [facility] ER with complaint of shortness of breath. Patient stated that she had awoken this morning and felt short of breath. She denied any chest pain. She denied any cough, fevers, or chills. Patient states that she was rece ntly hospitalized at [facility] for shortness of breath and was treated for a COPD exacerbation. Since her discharge she has had on and off shortness of breath. She had called her PCP yesterday who increased her prednisone dose to 15mg daily. Additionally the patient stated that she was recently started on Palliative care for End-Stage COPD. In addition to her shortness of breath the patient also admits to abdominal pain that she describes as crampy. She does state that she has had difficulty with a bowel movement lately. In the ED the patient was vitally stable. A chest x-ray obtained demonstrated a 1cm right mid lung zone nodule and 1.5cm left apical pleural based density. There was otherwise no areas of consolidation. Per ER staff, the patient was wheezing on arrival. She was given nebulized treatment as well as IV solumedrol. The patient reportedly felt better. An ABG obtained demonstrated a PCO2 of 72.4 but a pH of 7.39. A CT abdomen and pelvis was obtained as the patient had com plained of abdominal pain. There was no acute pathology but there was fecal stasis and possible constipation. Hospitalist service was consulted and the patient was admitted to observation status. During the course of her hospitalization the patient had a bowel movement which relieved the pain in her abdomen. The following day the patient felt back to her baseline and was discharged home MEDICAL CONDITIONS ADDRESSED: 1. Shortness of breath likely 2/2 End-stage COPD -Patient was not in acute COPD exacerbation. She does however, have end-stage COPD and was fairly recently started on palliative care with Roxanol and Ativan. It is likely that the patients sensation of shortness of breath is secondary to her end-stage COPD as she is not hypoxic. -ABG did demonstrate a hypercarbia however her pH is within normal range. Her O2 is elevated. Her CO2 retention is likely multifactorial to over oxygenation as well as the use of Roxanol and Ativan. These medications can help reduce air hunger but overall suppress respiratory drive. -Continue current home inhalers and 15mg Prednisone. -Will continue Roxanol and Ativan for palliative care of end-stage COPD symptoms -Continue Azithromycin 3x a week for prophylaxis -Patient was informed that what she is experiencing is likely air hunger from end-stage COPD 2. Abdominal Pain likely secondary to constipation -CT abdomen and pelvis negative for any acute pathology. Likely constipation. Labs are otherwise normal. Additionally she was recently started on Roxanol which can cause constipation -Patient had BM before discharge with relief of abdominal pain 3. Pulmonary HTN -Patient has trace bilateral lower extremity edema. -Patient was given one dose of 20mg IV lasix 4. Hypertension -Continue Diltiazem 5. Lung nodules on Chest imaging -Patient has a 1cm right mid lung zone nodule and a 1.5 cm left apical pleu ral based density. She follows with Dr. Christiansen for Pulmonary medicine. Patient stated that she was aware that she had one nodule. They had previously attempted to biopsy a lung nodule but due to the location they were unable to obtain a biopsy. Patient states that she was not aware of a second nodule. -Patient will need to follow-up outpatient for second nodule. Given her End- stage COPD there is likely not much that can be done 6. Smoking -Patient counseled on smoking cessation. Patient was advised that given her end-stage COPD, smoking is likely further complicating her care. DISCHARGE MEDICATIONS: Please see below. ALLERGIES: Please see below. PHYSICAL EXAMINATION ON DISCHARGE: VITAL SIGNS: Please see below. GENERAL APPEARANCE: Awake, alert, and oriented. Appears in no acute distress. Sitting up comfortably in chair HEENT: Atraumatic, normocephalic. Eyes are nonicteric. Trachea is midline. Mucous membranes are pink and moist CARDIOVASCULAR: Normal S1, S2. Regular rate and rhythm. No clicks rubs or murmurs LUNGS: Diminished breath sounds throughout with increased expiratory time. No wheezing. No rhonchi. No rales. Symmetric chest expansion. No accessory muscle use ABDOMEN: Soft, nondistended. nontender. No rebound tenderness or guarding. Normoactive bowel sounds EXTREMITIES: Trace bilateral lower extremity edema. Full and equal pulses in bilateral upper and lower extremities NEUROLOGICAL: No focal neurological deficits PSYCHIATRIC: Mood and affect appear appropriate LABORATORY DATA: Please see below. IMAGING: PROCEDURE INFORMATION: Exam: XR Chest Exam date and time: 03/04/2021 3:45 AM Age: 60 years old Clinical indication: Other: Dyspnea/cough TECHNIQUE: Imaging protocol: XR of the chest. Views: 1 view. COMPARISON: [facility] PORTABLE CHEST X-RAY 02/10/2021 12:48 PM FINDINGS: Lungs: There is a 1 cm right mid lung zone nodule. Pleural spaces: There is biapical pleural thickening and scarring. There is a 1.5 cm pleural based density in the left lung apex. Heart/Mediastinum: Unremarkable. No cardiomegaly. Bones/joints: There is thoracolumbar spine scoliosis. IMPRESSION: 1. No focal consolidation. 2. 1 cm right mid lung zone nodule and 1.5 cm left apical pleural based density. Underlying neoplastic etiology cannot be excluded. These were seen on CT scan of February 10, 2021. Follow-up and management is recommended as per the findings on CT scan. PET-CT scan or tissue biopsy may be considered as per Fleischner Society recommendations. Electronically signed by: Russ Hutton On 03/04/2021 04:52:32 AM INDICATION: abdominal pain. COMPARISON: 02/11/2021 TECHNIQUE: Axial contrast-enhanced images from the lung bases to the pubic symphysis using oral and 100 cc Isovue 370 intravenous contrast material. Coronal and sagittal reformations obtained.. This CT examination was performed using the following dose reduction techniques: Automated exposure control, adjustment of mA and/or kv according to the patient's size, and the use of iterative reconstruction technique. FINDINGS: Lung bases are clear. Visualized heart and pericardium normal. Liver, spleen, pancreas, bilateral adrenal glands and kidneys are normal. Evidence for prior cholecystectomy. The enteric system is without obstruction or acute inflammatory process. Normal terminal ileum and appendix are identified in the right lower quadrant. Fecal stasis and possible constipation should be correlated clinically. Sigmoid diverticulosis noted without acute diverticulitis. Pelvis demonstrates normal bladder and prior hysterectomy. No ascites. No free air. No intraperitoneal or retroperitoneal adenopathy. Atherosclerotic changes to the aorta and vasculature without aneurysm or dissection. Musculoskeletal structures are intact and without acute osseous abnormality. IMPRESSION: No acute abdominopelvic pathology appreciated. Fecal stasis and possible constipation should be correlated clinically. Diverticulosis without acute diverticulitis. <Electronically signed by Prashanth Carranza > 03/04/21 0854 ACTIVITY: [As tolerated]. DIET: COPD diet DISCHARGE PLAN: Patient is to be discharged home. She is to follow-up with her PCP in 7-10 days DISPOSITION: Home, Self-Care. DISCHARGE CONDITION: [Stable]. TIME SPENT ON DISCHARGE: Greater than 35 minutes. Vital Signs/I&Os Vital Signs Date Time Temp Pulse Resp B/P (MAP) Pulse Ox O2 Delivery O2 Flow Rate FiO2 03/05/21 09:15 2.0 03/05/21 08:56 99 137/88 03/05/21 06:00 97.6 19 91 Nasal Cannula 03/04/21 01:11 98 I&O- Last 24 Hours up to 6 AM 03/05/21 06:00 Intake Total 1180 ml Output Total 450 ml Balance 730 ml Laboratory Data Labs 24H Laboratory Tests 2 03/05/21 06:07: Nucleated Red Blood Cells % (auto) 0.0, Anion Gap 2L, Glomerular Filtration Rate > 60.0, Calcium Level 9.6 CBC/BMP Laboratory Tests 03/05/21 06:07 Microbiology Microbiology 03/04/21 Respiratory Virus Panel (PCR) (SHERRI) - Final, Complete 03/04/21 Blood Culture - Preliminary, Resulted No growth after 24 hours . All specim... Discharge Medications Scheduled Azithromycin (Azithromycin) 250 Mg Tablet, 250 MG PO 3XW, (Reported) TUES, THURS, SAT Budesonide (Budesonide) 1 Mg/2 Ml Ampul.neb, 2 ML INH BID, (Reported) MIX WITH PERFOROMIST Diltiazem HCl (Diltiazem HCl) 30 Mg Tablet, 30 MG PO DAILY, (Reported) Ergocalciferol (Vitamin D2) (Vitamin D2) 50,000 Units Cap, 50,000 UNITS PO QWEEK, (Reported) SATURDAYS Formoterol Fumarate (Perforomist) 20 Mcg/2 Ml Vial.neb, 2 ML INH BID, (Reported) MIX WITH BUDESONIDE Latanoprost (Xalatan) 0.005% 2.5ML Drops, 1 DROP OU QHS, (Reported) Lorazepam (Lorazepam) 1 Mg Tablet, 0.5 MG PO BID, (Reported) Lorazepam (Lorazepam) 1 Mg Tablet, 1 MG PO QHS, (Reported) Losartan/Hydrochlorothiazide (Losartan-Hctz 50-12.5 mg Tab) 1 Each Tablet, 1 TAB PO DAILY, (Reported) Prednisone (Prednisone) 10 Mg Tablet, 15 MG PO DAILY, (Reported) Tiotropium [place] (Spiriva Respimat) 4 Gm Mist.inhal, 2 PUFFS INH DAILY, (Reported) Scheduled PRN Albuterol Sulfate (Ventolin Hfa) 18 Gm Hfa.aer.ad, 2 PUFFS INH QID PRN for SHORTNESS OF BREATH, (Reported) Ipratropium/Albuterol Sulfate (Combivent Respimat 20-100 Mcg) 4 Gm Mist.inhal, 1 PUFF INH QID PRN for SHORTNESS OF BREATH, (Reported) Ipratropium/Albuterol Sulfate (Iprat-Albut 0.5-3(2.5) mg/3 ml) 3 Ml Ampul.neb, 3 ML INH Q4H PRN for SHORTNESS OF BREATH, (Reported) Morphine Sulfate (Morphine Sulfate) 100 Mg/5 Ml Solution, 0.5 ML PO Q3HP PRN for DYSPNEA, (Reported) MAY TAKE 0.75ML-1ML, PATIENT STATES SHE USUALLY TAKES LESS Polyethylene Glycol 3350 (Miralax) 119 Gm Powder, 17 GM PO DAILY PRN for CONSTIPATION, (Reported) Allergies Coded Allergies: SEASONAL ALLERGIES (Verified Allergy, Mild, 11/08/20) codeine (Verified Adverse Reaction, Unknown, abdominal pain/nausea/vomiting, 03/24/20) GME ATTESTATION GME ATTESTATION My faculty preceptor for this patient encounter was physically present during the encounter and was fully available. All aspects of the patient interview, examination, medical decision making process, and medical care plan development were reviewed and approved by the faculty preceptor. The faculty preceptor is aware and concurs with the plan as stated in the body of this note and will attest to such by his/her cosignature. ATTENDING NOTE I, Henry Shaw, have independently examined this patient and performed my own physical exam, as well as reviewed the documentation and edited where necessary. I have discussed in detail with the resident / student the findings and plan of treatment as documented by the resident / student and edited their note. I agree with their findings and treatment plan and have edited their documentation. I will continue to follow the patient during this hospital stay. Time spent on discharge 20 minutes FRANCESCO CHANDLER DO March 05, 2021 14:00 HENRY SHAW MD March 05, 2021 14:08
== END 2021-03-05 12:26 | disposition home or self-care (01) ==
LOC: M ED 00:42 → M ED INP 11:55 → ENRESERV 14:13 → M MSPAV 15:54
PROVIDERS: ADMIT Internal Medicine; ATTEND Internal Medicine
DX: J44.9 Chronic obstructive pulmonary disease, unspecified (principal); R10.9 Unspecified abdominal pain; K59.00 Constipation, unspecified; Z99.81 Dependence on supplemental oxygen; I37.0 Nonrheumatic pulmonary valve stenosis; I10 Essential (primary) hypertension; R91.8 Other nonspecific abnormal finding of lung field; Z79.52 Long term (current) use of systemic steroids; F17.218 Nicotine dependence, cigarettes, with other nicotine-induced disorders; Z79.899 Other long term (current) drug therapy; Z88.5 Allergy status to narcotic agent
CPT/HCPCS: 36415; 36600; 71045; 74177; 80048; 80076; 82550; 82553; 82803; 83605; 83880; 84436; 84443; 85025; 85027; 87040; 87798; 93005; 93041; 94640; 94760; 99285; J1650; J1940; J2765; J2930; J7512; J7606

== ENCOUNTER 2021-03-26 05:33 | Inpatient (IN) | payer MEDICAID, OTHER ==
[~2021-03-26] VITALS: Ht 162.6 cm; Wt 60.1 kg
[~2021-03-26 05:33] MED LIST changes: +ERGO500029 PO; +VENTAER INH; -VITA50005 PO
[2021-03-26] MEDS: IPRATROPIUM 0.5MG/ALBUTEROL 2.5MG INH SOL UD 3ML (DUONEB) NEB PRN ×3 (06:00→06:04)
[2021-03-26] MEDS ORDERED: methylPREDNISolone 125MG 2ML VIAL IV ONE (06:00)
[2021-03-26 06:22] LABS: BASO % 0.2 % (0.0-1.0); HEMATOCRIT 49.3 % (36.0-47.0); HEMOGLOBIN 15.7 g/dl (12.0-15.5); LYMPH # 1.4 10^3/uL (1.5-5.0); LYMPH % 7.6 % (24.0-44.0); MEAN CORPUSCULAR HEMOGLOBIN 31.1 pg (27.0-33.0); MEAN CORPUSCULAR HGB CONC 31.8 g/dl (32.0-36.5); MEAN CORPUSCULAR VOLUME 97.6 fl (80.0-96.0); MONO # 1.1 10^3/uL (0.0-0.8); MONO % 5.8 % (2.0-8.0); NEUTROPHILS # 15.9 10^3/uL (1.5-8.5); NEUTROPHILS % 85.8 % (36.0-66.0); PLATELET COUNT, AUTOMATED 346 10^3/uL (150-450); RED BLOOD COUNT 5.05 10^6/uL (4.00-5.40); WHITE BLOOD COUNT 18.5 10^3/uL (4.0-10.0)
[2021-03-26 06:38] LABS: ALBUMIN 3.4 GM/DL (3.2-5.2); ALT/SGPT 19 U/L (12-78); BILIRUBIN,DIRECT 0.1 MG/DL (0.0-0.2); BILIRUBIN,TOTAL 0.4 MG/DL (0.2-1.0); BLOOD UREA NITROGEN 21 MG/DL (7-18); CALCIUM LEVEL 9.9 MG/DL (8.8-10.2); CARBON DIOXIDE LEVEL 42 MEQ/L (21-32); CHLORIDE LEVEL 92 MEQ/L (98-107); CK-MB VALUE MASS 4.3 NG/ML (<3.6); CPK CREATINE PHOSPHOKINASE 55 U/L (26-192); GLOMERULAR FILTRATION RATE > 60.0 (>45); GLUCOSE, FASTING 122 MG/DL (70-100); MB/CK RELATIVE INDEX 7.82 (< OR =4); NT-PRO BNP 776 PG/ML (<125); POTASSIUM SERUM 4.2 MEQ/L (3.5-5.1); SODIUM LEVEL 137 MEQ/L (136-145); TOTAL PROTEIN 6.9 GM/DL (6.4-8.2); TROPONIN I 0.06 NG/ML (< 0.10)
--- NOTE | 2021-03-26 07:06 | REPVR ---
PROCEDURE INFORMATION: Exam: XR Chest Exam date and time: 03/26/2021 6:09 AM Age: 61 years old Clinical indication: Other: Dyspnea/cough TECHNIQUE: Imaging protocol: XR of the chest. Views: 1 view. COMPARISON: [facility] PORTABLE CHEST X-RAY 03/04/2021 1:10 AM FINDINGS: Lungs: COPD , interstitial prominence, 10 mm nodular density overlying the right mid lung field. Pleural spaces: Apical pleural thickening. No dependent pleural effusion. Heart/Mediastinum: No cardiomegaly. Bones/joints: Scoliosis and degenerative change. IMPRESSION: COPD , interstitial prominence, 10 mm nodular density overlying the right mid lung field. Electronically signed by: Manuel Hall On 03/26/2021 07:06:45 AM
[2021-03-26] MEDS: FORMOTEROL FUMARATE 20 MCG/2 ML INHALATION SOLUTION (PERFOROMIST) INH SCH ×2 (08:00→19:45)
[2021-03-26] MEDS ORDERED: ONDANSETRON 4MG/2ML VIAL IV PRN (08:25)
[2021-03-26] MEDS: MORPHINE 2 MG/ML 1ML VIAL (J2270) IV PRN ×5 (08:42→21:52)
[2021-03-26] MEDS ORDERED: HYDR12CA PO (08:55)
[2021-03-26] MEDS ORDERED: hydroCHLOROthiazide 12.5 MG CAPSULE PO SCH (09:00)
[2021-03-26] MEDS: LORazepam 1 MG TAB PO PRN ×4 (09:22→21:51)
[2021-03-26] MEDS: SCOPOLAMINE 1MG TRANSDERMAL PATCH TOP PRN (10:23)
[2021-03-26] MEDS ORDERED: COMBIVENT RESPIMAT 100-20MCG INHALER 4GM INH PRN (10:35)
[2021-03-26] MEDS ORDERED: ALBUTEROL 90 MCG/ACT 8GM HFA INHALER INH PRN (10:35)
--- NOTE | 2021-03-26 11:45 | HPEPDOC ---
[facility] Medical History & Physical Date of Admission Mar 26, 2021 Date of Service: Mar 26, 2021 Attending Physician: MICHELE CROSS MD History and Physical CHIEF COMPLAINT: Shortness of breath HISTORY OF PRESENT ILLNESS: 61 year old W with endstage COPD steroid dependent on chronic supplemental oxygen on palliative care, active smoker, HTN, osteoarthritis, and pulmonary hypertension who presented to the ED with chief complaint of worsening shortness of breath and lethargy without changes to her chronic wet cough with clear to white sputum per baseline, and no fevers or chills. In addition to her shortness of breath the patient also complains of back pain reporting pain in her "tail bone" and asking to be repositioned so that she can get more comfortable. In the ED the patient was hemodynamically stable but with acute on chronic hypoxemia requiring 5L from her baseline 2L to mantain a saturation above 89%. Studies were notable for a VBG that showed an elevated CO2 to 95% with a pH of 7.3 and PO2 of 160. She was alert and oriented but noticeably sleepy and the ED physician discussed BiPAP with her given her significant hypercarbia and developing somnolence and encephalopathy and she adamantly declined the mask. I also arrived and discussed BiPAP with her and the consequences of not correcting her worsening hypercarbia and she still refused it and was able to express that she understood that it likely meant that she could have respiratory arrest. I then offered her comfort measures to which she agreed with the understanding that my goal on admission would be to make her comfortable but not attempt to reverse any pathology at this time. I proceeded to have this discussion with her Jann and son Enzo seperately who expressed understanding of her decision and Enzo began the arrangements to make his way home from his home in [place]. Of note, she has a leukocytosis to 18.5, Hgb 15.7, platelets 346, na 137, K 4.2, Cr 0.5, lactate 1.6, troponin 0.06, proBNP 776, covid-19 negative, while CXR showed interstitial prominence and a previous seen 1cm RML nodule was noted. She is now being admitted for end stage COPD with acute exacerbation, possible CAP given the leukocytosis and worsening hypoxemia for comfort measures only. PAST MEDICAL HISTORY: 1. End Stage COPD on chronic steroids and supplemental Oxygen 2.0L 2. HTN 3. Osteoarthritis 4. Pulmonary Hypertension 5. Grade 1 Left ventricular diastolic dysfunction, LVEF 75% 6. Mixed Hyperlipidemia 7. Osteoporosis 8. Vitamin D Deficiency 9. Glaucoma PAST SURGICAL HISTORY: 1. D&C 2. Bilateral tubal ligation 3. Left breast lumpectomy 4. Hysterectomy due to fibroid uterus 5. Cholecystectomy SOCIAL HISTORY: -Lives at home with her , son and his girlfriend. -She is a current smoker with a very long smoking history with over 50pack year history. -Denies any alcohol use. -Denies illicit drug use. -Her international student counselor is Dr. Christiansen FAMILY HISTORY: Mother: breast cancer and asthma. Father: Alzheimer dementia. Sister: asthma and breast cancer ALLERGIES: Please see below. REVIEW OF SYSTEMS: Was unable to complete all systems as she was uncomfortable and declined to participate in all elements beyond the ones mentioned above. HOME MEDICATIONS: Please see below. PHYSICAL EXAMINATION: VITAL SIGNS: see below GENERAL APPEARANCE: Somnolent, awake on voice, oriented x 3. In mild distress. Asking to be repositioned HEENT: Atraumatic, normocephalic. Eyes are nonicteric. Trachea is midline. Mucous membranes are pink and moist CARDIOVASCULAR: Tachycardic, regular rhythm, no noted murmurs LUNGS: Diminished breath sounds throughout with increased expiratory time. No wheezing. No rhonchi. With crackles up to midposterior lung hernandez ABDOMEN: Normoactive sounds, soft, nondistended.No rebound tenderness or guarding. EXTREMITIES: No lower extremity edema. WWP. 2+ DP pulses bilaterally NEUROLOGICAL: somnolent but speech is clear when she speaks, mentation is intact with AOx3, weak but moves all extremities with at least 4/5 strength throughout LABORATORY DATA and IMAGING: discussed above ASSESSMENT: 61 year old W with a past medical history significant for end stage COPD on chronic steroids, 2L NC, and palliative care, pulmonary HTN, and osteoarthritis who presented to the [facility] ER with complaint of shortness of breath and now admitted for acute COPD exacerbation with acute on chronic hypercarbic hypoxemic respiratory failure i/s/o possible CAP now transitioned to PHARMACY OPERATIONS SPECIALIST. PLAN: Acute COPD exacerbation with acute on chronic hypercarbic hypoxemic respiratory failure i/s/o possible CAP -DNR/DNI, declined BiPAP now transitioned to PHARMACY OPERATIONS SPECIALIST -s/p solumedrol 125mg IV inthe ED -continue her home mdis for comfort -PHARMACY OPERATIONS SPECIALIST order set with IV morphine for air hunger and SOB and PO ativan PRN for anxiety -O2 therapy orders for 88-92%. -No empiric antibiotics as she has been transitioned to PHARMACY OPERATIONS SPECIALIST Acute on chronic hypercarbic hypoxemic respiratory failure i/s/o possible CAP -Declined BiPAP, with supplemental oxygen, now PHARMACY OPERATIONS SPECIALIST Possible CAP: -no empiric antibiotics of further workup as she has opted to be made PHARMACY OPERATIONS SPECIALIST at this time Hypertension -Continue home daily diltiazem Lung nodules on Chest imaging -now PHARMACY OPERATIONS SPECIALIST Dispo: Med/surg, PHARMACY OPERATIONS SPECIALIST with poor prognosis. Discussed poor prognosis on the order of hours to days with family. Family at bedside. Vital Signs Vital Signs Date Time Temp Pulse Resp B/P (MAP) Pulse Ox O2 Delivery O2 Flow Rate FiO2 03/26/21 10:02 97.0 03/26/21 09:46 101 32 141/79 (99) 98 Nasal Cannula 5.0 Laboratory Data Labs 24H Laboratory Tests 2 03/26/21 05:53: Immature Granulocyte % (Auto) 0.6, Neutrophils (%) (Auto) 85.8H, Lymphocytes (%) (Auto) 7.6L, Monocytes (%) (Auto) 5.8, Eosinophils (%) (Auto) 0.0, Basophils (%) (Auto) 0.2, Neutrophils # (Auto) 15.9H, Lymphocytes # (Auto) 1.4L, Monocytes # (Auto) 1.1H, Eosinophils # (Auto) 0.0, Basophils # (Auto) 0.0, Nucleated Red Blood Cells % (auto) 0.0, Anion Gap 3L, Glomerular Filtration Rate > 60.0, Lactic Acid Level 1.6, Calcium Level 9.9, Total Bilirubin 0.4, Direct Bilirubin 0.1, Aspartate Amino Transf (AST/SGOT) 11, Alanine Aminotransferase (ALT/SGPT) 19, Alkaline Phosphatase 114, Total Creatine Kinase 55, Creatine Kinase MB 4.3H, Creatine Kinase MB Relative Index 7.82H, Troponin I 0.06, YQ-Bbv-G-Type Natriuretic Peptide 776H, Total Protein 6.9, Albumin 3.4, Albumin/Globulin Ratio 1.0L 03/26/21 05:56: POC pH (Misc Panel) 7.309L, POC Base Excess (Misc Panel) 22.0H, POC Saturated Percent O2 (Misc) 99H, POC pO2 (Misc Panel) 160.0H, POC pCO2 (Misc Panel) 95.4*H, POC HCO3 (Misc Panel) 47.9H, POC Total CO2 (Misc Panel) > 50.0H CBC/BMP Laboratory Tests 03/26/21 05:53 Microbiology Microbiology 03/26/21 Blood Culture, Received Pending 03/26/21 Respiratory Virus Panel (PCR) ([facility]ERRI) - Final, Complete 03/26/21 Blood Culture, Received Pending Home Medications Scheduled Azithromycin (Azithromycin) 250 Mg Tablet, 250 MG PO 3XW TUES, TH, SAT Budesonide (Budesonide) 1 Mg/2 Ml Ampul.neb, 2 ML INH BID MIX WITH PERFOROMIST Diltiazem HCl (Diltiazem HCl) 30 Mg Tablet, 30 MG PO DAILY Ergocalciferol (Vitamin D2) (Vitamin D2) 50,000 Units Cap, 50,000 UNITS PO QWEEK SATURDAYS Formoterol Fumarate (Perforomist) 20 Mcg/2 Ml Vial.neb, 2 ML INH BID MIX WITH BUDESONIDE Hydrochlorothiazide (Hydrochlorothiazide) 12.5 Mg Capsule, 12.5 MG PO DAILY TAKE WITH LOSARTAN-HCTZ Latanoprost (Xalatan) 0.005% 2.5ML Drops, 1 DROP OU QHS Lorazepam (Lorazepam) 1 Mg Tablet, 0.5 MG PO BID Lorazepam (Lorazepam) 1 Mg Tablet, 1 MG PO QHS Losartan/Hydrochlorothiazide (Losartan-Hctz 50-12.5 mg Tab) 1 Each Tablet, 1 TAB PO DAILY Prednisone (Prednisone) 10 Mg Tablet, 15 MG PO DAILY Tiotropium [place] (Spiriva Respimat) 4 Gm Mist.inhal, 2 PUFFS INH DAILY Scheduled PRN Albuterol Sulfate (Ventolin Hfa) 18 Gm Hfa.aer.ad, 2 PUFFS INH QID PRN for SHORTNESS OF BREATH Ipratropium/Albuterol Sulfate (Combivent Respimat 20-100 Mcg) 4 Gm Mist.inhal, 1 PUFF INH QID PRN for SHORTNESS OF BREATH Ipratropium/Albuterol Sulfate (Iprat-Albut 0.5-3(2.5) mg/3 ml) 3 Ml Ampul.neb, 3 ML INH Q4H PRN for SHORTNESS OF BREATH Morphine Sulfate (Morphine Sulfate) 100 Mg/5 Ml Solution, 0.5 ML PO Q3HP PRN for DYSPNEA MAY TAKE 0.75ML-1ML, PATIENT STATES SHE USUALLY TAKES LESS Polyethylene Glycol 3350 (Miralax) 119 Gm Powder, 17 GM PO DAILY PRN for CONS TIPATION Allergies Coded Allergies: SEASONAL ALLERGIES (Verified Allergy, Mild, 11/08/20) codeine (Verified Adverse Reaction, Unknown, abdominal pain/naus ea/vomiting, 03/24/20) A-FIB/CHADSVASC A-FIB History Current/History of A-Fib/PAF?: No Current PO Anticoag Therapy: No Age/Risk Factor Scoring CHADSVASC: CHADSVASC Response (Comments) Value Age Risk Factor Age < 65 years old 0 Gender Risk Factor Female 1 Hx of CHF No 0 Hx of HTN Yes 1 Hx of Stroke/TIA/or VTE No 0 Hx of Diabetes No 0 Hx of Vascular Disease No 0 Total 2 Treatment Treatment ordered: NONE Reason Anticoagulant not given: Not indicated/[id number] MICHELE CROSS MD Mar 26, 2021 11:44
[2021-03-26] MEDS: IPRATROPIUM 0.5MG/ALBUTEROL 2.5MG INH SOL UD 3ML (DUONEB) INH PRN ×2 (17:48→19:42)
[2021-03-26] MEDS: MORPHINE 15 MG SA TAB PO SCH (18:55)
[2021-03-26] MEDS ORDERED: MORPHINE 15 MG SA TAB PO SCH (21:00)
[2021-03-26] MEDS: LATANOPROST 0.005% OPHTH SOLN 2.5 ML OU SCH (21:51)
[2021-03-27] MEDS: MORPHINE 2 MG/ML 1ML VIAL (J2270) IV PRN ×6 (00:28→16:28)
[2021-03-27] MEDS: LORazepam 1 MG TAB PO PRN ×4 (00:28→12:28)
[2021-03-27] MEDS: IPRATROPIUM 0.5MG/ALBUTEROL 2.5MG INH SOL UD 3ML (DUONEB) INH PRN ×3 (02:35→20:19)
[2021-03-27] MEDS: FORMOTEROL FUMARATE 20 MCG/2 ML INHALATION SOLUTION (PERFOROMIST) INH SCH ×2 (07:33→20:19)
[2021-03-27] MEDS: MORPHINE 15 MG SA TAB PO SCH ×2 (09:32→19:44)
[2021-03-27] MEDS: LATANOPROST 0.005% OPHTH SOLN 2.5 ML OU SCH (19:45)
[2021-03-28] MEDS: MORPHINE 2 MG/ML 1ML VIAL (J2270) IV PRN ×5 (00:30→22:55)
[2021-03-28] MEDS: NICOTINE 14 MG/24 HR TRANSDERMAL TD PRN (00:30)
[2021-03-28] MEDS: LORazepam 1 MG TAB PO PRN ×5 (00:30→20:37)
[2021-03-28] MEDS: IPRATROPIUM 0.5MG/ALBUTEROL 2.5MG INH SOL UD 3ML (DUONEB) INH PRN ×5 (00:32→20:51)
[2021-03-28] MEDS: FORMOTEROL FUMARATE 20 MCG/2 ML INHALATION SOLUTION (PERFOROMIST) INH SCH ×2 (07:29→20:51)
[2021-03-28] MEDS: MORPHINE 15 MG SA TAB PO SCH ×2 (07:34→18:56)
--- NOTE | 2021-03-28 10:25 | IPNPDOC ---
Text Note Date of Service The patient was seen on 03/28/21. NOTE SUBJECTIVE: -Awake, alert, conversational, actually reports that today she feels a bit better and wants to sit up. Has been speaking with her family about coming home. We agreed to consult hospice and explore a discharge plan as [id number] who would be the main junior recruiter lives in [place] but came emergently when she fell ill and have to discuss duration of her stay etc. PHYSICAL EXAMINATION: VITAL SIGNS: see below GENERAL APPEARANCE: Awake, alert, oriented x 3. NAD, ill appearing. HEENT: Atraumatic, normocephalic. Eyes are nonicteric. Trachea is midline. Mucous membranes are pink and moist CARDIOVASCULAR: Tachycardic, regular rhythm, no noted murmurs LUNGS: Diminished breath sounds throughout with increased expiratory time. Dry crackles throughout lung hernandez. No wheezing. No rhonchi. ABDOMEN: Normoactive sounds, soft, nondistended.No rebound tenderness or guarding. EXTREMITIES: No lower extremity edema. WWP. 2+ DP pulses bilaterally NEUROLOGICAL: Awake, speech is clear, AOx3, weak but moves all extremities with at least 4/5 strength throughout LABORATORY DATA: none ASSESSMENT: 61 year old W with a past medical history significant for end stage COPD on chronic steroids, 2L NC, and palliative care, pulmonary HTN, and osteoarthritis who presented to the [facility] ER with complaint of shortness of breath and now admitted for acute COPD exacerbation with acute on chronic hypercarbic hypoxemic respiratory failure i/s/o possible CAP now transitioned to DEPUTY SHERIFF. PLAN: Acute COPD exacerbation with acute on chronic hypercarbic hypoxemic respiratory failure i/s/o possible CAP -DNR/DNI, declined BiPAP and transitioned to DEPUTY SHERIFF -s/p solumedrol 125mg IV inthe ED -continue her home mdis for comfort -DEPUTY SHERIFF order set with IV morphine for air hunger and SOB and PO ativan PRN for anx iety -O2 therapy orders for 88-92%. -No empiric antibiotics as she has been transitioned to DEPUTY SHERIFF -consulting hospice today Acute on chronic hypercarbic hypoxemic respiratory failure i/s/o possible CAP -Declined BiPAP, with supplemental oxygen, now DEPUTY SHERIFF Possible CAP: -no empiric antibiotics of further workup as she has opted to be made DEPUTY SHERIFF at this time Hypertension -Continue home daily diltiazem Lung nodules on Chest imaging -now DEPUTY SHERIFF Dispo: Med/surg, DEPUTY SHERIFF with poor prognosis. Consulting hospice today for home vs. hospice house discussions. VS,Fishbone, I+O VS, Fishbone, I+O Vital Signs Date Time Temp Pulse Resp B/P (MAP) Pulse Ox O2 Delivery O2 Flow Rate FiO2 03/28/21 09:32 Nasal Cannula 03/28/21 07:34 20 03/27/21 21:00 5.0 03/26/21 21:52 97 03/26/21 17:48 92 03/26/21 10:02 97.0 03/26/21 09:46 141/79 (99) I&O- Last 24 Hours up to 6 AM 03/28/21 06:00 Intake Total 520 ml Output Total 625 ml Balance -105 ml MICHELE CROSS MD Mar 28, 2021 10:25
--- NOTE | 2021-03-28 16:29 | ECGEPIP ---
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
[2021-03-28] MEDS ORDERED: MIRALAX *UNIT DOSE* 17GM PACKET PO PRN (19:00)
[2021-03-28] MEDS: LATANOPROST 0.005% OPHTH SOLN 2.5 ML OU SCH (20:37)
[2021-03-29] MEDS: NICOTINE 14 MG/24 HR TRANSDERMAL TD PRN (00:34)
[2021-03-29] MEDS: ACETAMINOPHEN TAB 650MG DOSE (2X325MG) PO PRN ×2 (00:35→19:38)
[2021-03-29] MEDS: IPRATROPIUM 0.5MG/ALBUTEROL 2.5MG INH SOL UD 3ML (DUONEB) INH PRN ×4 (00:56→15:10)
[2021-03-29] MEDS: MORPHINE 2 MG/ML 1ML VIAL (J2270) IV PRN ×4 (01:47→23:24)
[2021-03-29] MEDS: MORPHINE 15 MG SA TAB PO SCH ×2 (06:15→17:59)
[2021-03-29] MEDS: FORMOTEROL FUMARATE 20 MCG/2 ML INHALATION SOLUTION (PERFOROMIST) INH SCH ×2 (07:04→19:34)
[2021-03-29] MEDS ORDERED: MIRALAX *UNIT DOSE* 17GM PACKET PO SCH (09:00)
--- NOTE | 2021-03-29 14:01 | IPNPDOC ---
Text Note Date of Service The patient was seen on 03/29/21. NOTE SUBJECTIVE: Patient was sitting up at side of bed, NAD while at rest. Tripod position feels most comfortable, however patient reports work of breathing has improved. Younger sister, Rosalee, at bedside. All questions answered. PHYSICAL EXAMINATION: VITAL SIGNS: see below GENERAL APPEARANCE: Awake, alert, oriented x 3. NAD,fatigued, ill appearing. HEENT: Atraumatic, normocephalic. Eyes are anicteric. Mucous membranes are pink and moist CARDIOVASCULAR: Slightly tachycardic, regular rhythm, no noted murmurs LUNGS: Diminished breath sounds with dry crackles throughout with increased end expiratory phase. Unable to appreciate wheezes. ABDOMEN: Normoactive sounds, soft, nondistended.No rebound tenderness or guarding. EXTREMITIES: No lower extremity edema, no apparent rashes/petechiae. NEUROLOGICAL: Awake, speech is clear, AOx3, generally weak but moves all extremities with at least 4/5 strength throughout LABORATORY DATA: no recent studies IMAGING: No recent studies. ASSESSMENT: 61 year old female w/ pmhx most significant for end stage COPD on chronic steroids, 2L NC at home, and palliative care, pulmonary HTN, and osteoarthritis who presented to the [facility] ER with complaint of shortness of breath and now admitted for acute COPD exacerbation with acute on chronic hypercarbic hypoxemic respiratory failure i/s/o possible CAP now transitioned to KILN TENDER. PLAN: Acute COPD exacerbation with acute on chronic hypercarbic hypoxemic respiratory failure i/s/o possible CAP. Patient reports improved symptoms and resolve to return home. -Continue comfort care measures - O2 for comfort only - patient declined BiPAP - Engaging PFS for discharge planning for home hospice services. Acute on chronic hypercarbic hypoxemic respiratory failure i/s/o possible CAP -Declined BiPAP, with supplemental oxygen, now KILN TENDER Possible CAP: -no empiric antibiotics of further workup as she has opted to be made KILN TENDER at this time Hypertension -Continue home daily diltiazem Lung nodules on Chest imaging -now KILN TENDER Dispo: Med/surg, KILN TENDER with poor prognosis. Patient to return home with and dogs, son and [id number] as caregivers with ultimate plan to move to [place] with son and [id number]. Ultimate goal is to remain home. DNR/DNI Diet: Regular diet DVT Prophy: None Consults: PFS, PT/OT VS,Fishbone, I+O VS, Fishbone, I+O Vital Signs Date Time Temp Pulse Resp B/P (MAP) Pulse Ox O2 Delivery O2 Flow Rate FiO2 03/28/21 20:35 5.0 03/28/21 09:32 Nasal Cannula 03/28/21 07:34 20 03/26/21 21:52 97 03/26/21 17:48 92 03/26/21 10:02 97.0 03/26/21 09:46 141/79 (99) I&O- Last 24 Hours up to 6 AM 03/29/21 05:59 Intake Total 280 ml Output Total 400 ml Balance -120 ml KARON EDWARDS MD [facility] Mar 29, 2021 14:01
[2021-03-29] MEDS: SCOPOLAMINE 1MG TRANSDERMAL PATCH TOP PRN (18:04)
[2021-03-29] MEDS: LATANOPROST 0.005% OPHTH SOLN 2.5 ML OU SCH (19:38)
[2021-03-29] MEDS: LORazepam 1 MG TAB PO PRN ×2 (19:52→23:24)
[2021-03-30] MEDS: IPRATROPIUM 0.5MG/ALBUTEROL 2.5MG INH SOL UD 3ML (DUONEB) INH PRN ×6 (00:09→23:55)
[2021-03-30] MEDS: MORPHINE 2 MG/ML 1ML VIAL (J2270) IV PRN ×3 (03:58→14:55)
[2021-03-30] MEDS: LORazepam 1 MG TAB PO PRN ×3 (03:59→14:55)
[2021-03-30] MEDS: MORPHINE 15 MG SA TAB PO SCH ×2 (06:22→18:04)
[2021-03-30] MEDS: FORMOTEROL FUMARATE 20 MCG/2 ML INHALATION SOLUTION (PERFOROMIST) INH SCH ×2 (07:17→19:46)
[2021-03-30] MEDS: MORPHINE 10MG/0.5ML ORAL CONCENTRATE SOLUTION U/D SL PRN ×2 (19:48→23:46)
[2021-03-30] MEDS: LATANOPROST 0.005% OPHTH SOLN 2.5 ML OU SCH ×2 (20:05→23:29)
[2021-03-31] MEDS: MORPHINE 10MG/0.5ML ORAL CONCENTRATE SOLUTION U/D SL PRN ×6 (04:00→22:02)
[2021-03-31] MEDS: IPRATROPIUM 0.5MG/ALBUTEROL 2.5MG INH SOL UD 3ML (DUONEB) INH PRN ×5 (04:15→21:39)
[2021-03-31] MEDS: MORPHINE 15 MG SA TAB PO SCH ×2 (06:38→19:36)
[2021-03-31] MEDS: FORMOTEROL FUMARATE 20 MCG/2 ML INHALATION SOLUTION (PERFOROMIST) INH SCH ×2 (07:15→19:57)
[2021-03-31] MEDS: BISACODYL 10 MG SUPP PR SCH (11:00)
[2021-03-31] MEDS: MIRALAX *UNIT DOSE* 17GM PACKET PO SCH ×2 (13:07→19:29)
[2021-03-31] MEDS: LATANOPROST 0.005% OPHTH SOLN 2.5 ML OU SCH (19:35)
[2021-03-31] MEDS: NICOTINE 14 MG/24 HR TRANSDERMAL TD PRN (20:09)
[2021-03-31] MEDS: LORazepam 1 MG TAB PO PRN (21:51)
[2021-04-01] MEDS: LORazepam 1 MG TAB PO PRN ×4 (01:22→21:32)
[2021-04-01] MEDS: MORPHINE 10MG/0.5ML ORAL CONCENTRATE SOLUTION U/D SL PRN ×5 (01:23→21:32)
[2021-04-01] MEDS: IPRATROPIUM 0.5MG/ALBUTEROL 2.5MG INH SOL UD 3ML (DUONEB) INH PRN ×4 (01:42→22:00)
[2021-04-01] MEDS: FORMOTEROL FUMARATE 20 MCG/2 ML INHALATION SOLUTION (PERFOROMIST) INH SCH ×2 (06:04→19:33)
[2021-04-01] MEDS: MORPHINE 15 MG SA TAB PO SCH ×2 (06:41→18:30)
[2021-04-01] MEDS: MIRALAX *UNIT DOSE* 17GM PACKET PO SCH ×2 (09:00→21:00)
[2021-04-01] MEDS: BISACODYL 10 MG SUPP PR SCH (09:00)
[2021-04-01] MEDS: LATANOPROST 0.005% OPHTH SOLN 2.5 ML OU SCH (21:22)
[2021-04-01] MEDS ORDERED: diphenhydrAMINE 50MG/ML VIAL (J1200) IM PRN (23:05)
[2021-04-02] MEDS: MORPHINE 10MG/0.5ML ORAL CONCENTRATE SOLUTION U/D SL PRN ×4 (02:19→20:01)
[2021-04-02] MEDS: IPRATROPIUM 0.5MG/ALBUTEROL 2.5MG INH SOL UD 3ML (DUONEB) INH PRN ×7 (02:24→23:17)
[2021-04-02] MEDS: LORazepam 1 MG TAB PO PRN ×3 (06:19→20:01)
[2021-04-02] MEDS: MORPHINE 15 MG SA TAB PO SCH ×2 (06:20→19:17)
[2021-04-02] MEDS: SCOPOLAMINE 1MG TRANSDERMAL PATCH TOP PRN (06:37)
[2021-04-02] MEDS: FORMOTEROL FUMARATE 20 MCG/2 ML INHALATION SOLUTION (PERFOROMIST) INH SCH ×2 (07:34→19:30)
[2021-04-02] MEDS: BISACODYL 10 MG SUPP PR SCH (08:27)
[2021-04-02] MEDS: MIRALAX *UNIT DOSE* 17GM PACKET PO SCH ×2 (08:27→20:02)
[2021-04-02] MEDS: LATANOPROST 0.005% OPHTH SOLN 2.5 ML OU SCH (20:05)
[2021-04-03] MEDS: MORPHINE 10MG/0.5ML ORAL CONCENTRATE SOLUTION U/D SL PRN ×5 (02:18→22:07)
[2021-04-03] MEDS: LORazepam 1 MG TAB PO PRN ×5 (02:18→22:06)
[2021-04-03] MEDS: IPRATROPIUM 0.5MG/ALBUTEROL 2.5MG INH SOL UD 3ML (DUONEB) INH PRN ×5 (02:57→23:06)
[2021-04-03] MEDS: MORPHINE 15 MG SA TAB PO SCH ×2 (06:33→18:17)
[2021-04-03] MEDS: FORMOTEROL FUMARATE 20 MCG/2 ML INHALATION SOLUTION (PERFOROMIST) INH SCH ×2 (07:06→19:32)
[2021-04-03] MEDS: BISACODYL 10 MG SUPP PR SCH (08:38)
[2021-04-03] MEDS: MIRALAX *UNIT DOSE* 17GM PACKET PO SCH ×2 (08:38→22:08)
[2021-04-03] MEDS: LATANOPROST 0.005% OPHTH SOLN 2.5 ML OU SCH (23:15)
[2021-04-04] MEDS: IPRATROPIUM 0.5MG/ALBUTEROL 2.5MG INH SOL UD 3ML (DUONEB) INH PRN ×5 (04:05→20:32)
[2021-04-04] MEDS: LORazepam 1 MG TAB PO PRN ×3 (05:14→20:08)
[2021-04-04] MEDS: MORPHINE 10MG/0.5ML ORAL CONCENTRATE SOLUTION U/D SL PRN ×2 (05:15→20:09)
[2021-04-04] MEDS: MORPHINE 15 MG SA TAB PO SCH ×2 (06:42→18:30)
[2021-04-04] MEDS: FORMOTEROL FUMARATE 20 MCG/2 ML INHALATION SOLUTION (PERFOROMIST) INH SCH ×2 (07:22→20:32)
[2021-04-04] MEDS: MIRALAX *UNIT DOSE* 17GM PACKET PO SCH ×2 (09:00→20:09)
[2021-04-04] MEDS: BISACODYL 10 MG SUPP PR SCH (09:00)
[2021-04-04] MEDS: ACETAMINOPHEN TAB 650MG DOSE (2X325MG) PO PRN (16:56)
[2021-04-04] MEDS: LATANOPROST 0.005% OPHTH SOLN 2.5 ML OU SCH (20:08)
[2021-04-05] MEDS: IPRATROPIUM 0.5MG/ALBUTEROL 2.5MG INH SOL UD 3ML (DUONEB) INH PRN ×7 (00:32→23:35)
[2021-04-05] MEDS: MORPHINE 10MG/0.5ML ORAL CONCENTRATE SOLUTION U/D SL PRN ×4 (03:29→15:16)
[2021-04-05] MEDS: LORazepam 1 MG TAB PO PRN ×4 (05:42→20:07)
[2021-04-05] MEDS: FORMOTEROL FUMARATE 20 MCG/2 ML INHALATION SOLUTION (PERFOROMIST) INH SCH ×2 (07:45→19:12)
[2021-04-05] MEDS: MORPHINE 15 MG SA TAB PO SCH ×2 (07:56→19:37)
[2021-04-05] MEDS: BISACODYL 10 MG SUPP PR SCH (07:56)
[2021-04-05] MEDS: MIRALAX *UNIT DOSE* 17GM PACKET PO SCH ×2 (07:56→19:37)
[2021-04-05] MEDS: NICOTINE 14 MG/24 HR TRANSDERMAL TD PRN (15:39)
[2021-04-05] MEDS: LATANOPROST 0.005% OPHTH SOLN 2.5 ML OU SCH (20:07)
[2021-04-06] MEDS: MORPHINE 10MG/0.5ML ORAL CONCENTRATE SOLUTION U/D SL PRN ×4 (00:03→15:13)
[2021-04-06] MEDS: IPRATROPIUM 0.5MG/ALBUTEROL 2.5MG INH SOL UD 3ML (DUONEB) INH PRN ×4 (02:43→15:24)
[2021-04-06] MEDS: FORMOTEROL FUMARATE 20 MCG/2 ML INHALATION SOLUTION (PERFOROMIST) INH SCH ×2 (06:33→19:54)
[2021-04-06] MEDS: LORazepam 1 MG TAB PO PRN ×2 (06:56→19:38)
[2021-04-06] MEDS: MIRALAX *UNIT DOSE* 17GM PACKET PO SCH ×2 (08:36→19:38)
[2021-04-06] MEDS: MORPHINE 15 MG SA TAB PO SCH ×2 (08:36→19:38)
[2021-04-06] MEDS: BISACODYL 10 MG SUPP PR SCH (08:37)
[2021-04-06] MEDS: LATANOPROST 0.005% OPHTH SOLN 2.5 ML OU SCH (19:38)
[2021-04-06] MEDS ORDERED: COMBIVENT RESPIMAT 100-20MCG INHALER 4GM INH PRN (20:55)
[2021-04-07] MEDS: MORPHINE 10MG/0.5ML ORAL CONCENTRATE SOLUTION U/D SL PRN ×4 (00:32→21:23)
[2021-04-07] MEDS: LORazepam 1 MG TAB PO PRN ×4 (00:32→14:08)
[2021-04-07] MEDS: SCOPOLAMINE 1MG TRANSDERMAL PATCH TOP PRN (00:34)
[2021-04-07] MEDS: IPRATROPIUM 0.5MG/ALBUTEROL 2.5MG INH SOL UD 3ML (DUONEB) INH PRN ×6 (00:34→19:30)
[2021-04-07] MEDS: MORPHINE 15 MG SA TAB PO SCH ×2 (06:32→18:56)
[2021-04-07] MEDS: FORMOTEROL FUMARATE 20 MCG/2 ML INHALATION SOLUTION (PERFOROMIST) INH SCH ×2 (07:24→19:31)
[2021-04-07] MEDS: MIRALAX *UNIT DOSE* 17GM PACKET PO SCH ×2 (08:24→21:00)
[2021-04-07] MEDS: BISACODYL 10 MG SUPP PR SCH (08:25)
[2021-04-07] MEDS: LATANOPROST 0.005% OPHTH SOLN 2.5 ML OU SCH (21:12)
[2021-04-07] MEDS: LORazepam 2 MG TAB PO PRN (21:23)
[2021-04-08] MEDS: IPRATROPIUM 0.5MG/ALBUTEROL 2.5MG INH SOL UD 3ML (DUONEB) INH PRN ×7 (00:30→23:30)
[2021-04-08] MEDS: LORazepam 2 MG TAB PO PRN ×3 (00:30→06:44)
[2021-04-08] MEDS: MORPHINE 10MG/0.5ML ORAL CONCENTRATE SOLUTION U/D SL PRN ×5 (00:30→23:24)
[2021-04-08] MEDS: MORPHINE 15 MG SA TAB PO SCH ×2 (06:44→18:42)
[2021-04-08] MEDS: ACETAMINOPHEN TAB 650MG DOSE (2X325MG) PO PRN (06:47)
[2021-04-08] MEDS: FORMOTEROL FUMARATE 20 MCG/2 ML INHALATION SOLUTION (PERFOROMIST) INH SCH ×2 (07:25→19:45)
[2021-04-08] MEDS: BISACODYL 10 MG SUPP PR SCH (09:00)
[2021-04-08] MEDS: MIRALAX *UNIT DOSE* 17GM PACKET PO SCH ×2 (11:05→20:28)
[2021-04-08] MEDS: LATANOPROST 0.005% OPHTH SOLN 2.5 ML OU SCH (20:28)
[2021-04-09] MEDS: IPRATROPIUM 0.5MG/ALBUTEROL 2.5MG INH SOL UD 3ML (DUONEB) INH PRN ×6 (02:53→23:53)
[2021-04-09] MEDS: MORPHINE 15 MG SA TAB PO SCH ×2 (06:35→19:09)
[2021-04-09] MEDS: FORMOTEROL FUMARATE 20 MCG/2 ML INHALATION SOLUTION (PERFOROMIST) INH SCH ×2 (07:07→19:39)
[2021-04-09] MEDS: BISACODYL 10 MG SUPP PR SCH (09:00)
[2021-04-09] MEDS: MIRALAX *UNIT DOSE* 17GM PACKET PO SCH ×2 (10:08→20:33)
[2021-04-09] MEDS: LORazepam 2 MG TAB PO PRN ×2 (10:09→20:32)
[2021-04-09] MEDS: MORPHINE 10MG/0.5ML ORAL CONCENTRATE SOLUTION U/D SL PRN ×2 (10:09→20:33)
[2021-04-09] MEDS: LATANOPROST 0.005% OPHTH SOLN 2.5 ML OU SCH (20:33)
[2021-04-10] MEDS: MORPHINE 10MG/0.5ML ORAL CONCENTRATE SOLUTION U/D SL PRN ×4 (03:22→19:13)
[2021-04-10] MEDS: IPRATROPIUM 0.5MG/ALBUTEROL 2.5MG INH SOL UD 3ML (DUONEB) INH PRN ×6 (03:46→23:19)
[2021-04-10] MEDS: ACETAMINOPHEN TAB 650MG DOSE (2X325MG) PO PRN (05:02)
[2021-04-10] MEDS: MORPHINE 15 MG SA TAB PO SCH ×2 (06:42→18:11)
[2021-04-10] MEDS: FORMOTEROL FUMARATE 20 MCG/2 ML INHALATION SOLUTION (PERFOROMIST) INH SCH ×2 (07:05→19:25)
[2021-04-10] MEDS: BISACODYL 10 MG SUPP PR SCH (08:41)
[2021-04-10] MEDS: MIRALAX *UNIT DOSE* 17GM PACKET PO SCH ×2 (09:42→21:00)
[2021-04-10] MEDS: SCOPOLAMINE 1MG TRANSDERMAL PATCH TOP PRN (09:43)
[2021-04-10] MEDS: NICOTINE 14 MG/24 HR TRANSDERMAL TD PRN (09:45)
[2021-04-10] MEDS: LORazepam 2 MG TAB PO PRN ×3 (09:52→18:13)
[2021-04-10] MEDS: valACYclovir HCL 500 MG TAB PO SCH (18:10)
[2021-04-10] MEDS: LATANOPROST 0.005% OPHTH SOLN 2.5 ML OU SCH (21:00)
[2021-04-11] MEDS: MORPHINE 10MG/0.5ML ORAL CONCENTRATE SOLUTION U/D SL PRN ×3 (02:07→18:36)
[2021-04-11] MEDS: LORazepam 2 MG TAB PO PRN ×4 (02:07→20:25)
[2021-04-11] MEDS: IPRATROPIUM 0.5MG/ALBUTEROL 2.5MG INH SOL UD 3ML (DUONEB) INH PRN ×4 (03:10→20:31)
[2021-04-11] MEDS: MORPHINE 15 MG SA TAB PO SCH ×2 (06:23→18:36)
[2021-04-11] MEDS: FORMOTEROL FUMARATE 20 MCG/2 ML INHALATION SOLUTION (PERFOROMIST) INH SCH ×2 (07:12→20:31)
[2021-04-11] MEDS: MIRALAX *UNIT DOSE* 17GM PACKET PO SCH ×2 (09:55→20:28)
[2021-04-11] MEDS: BISACODYL 10 MG SUPP PR SCH (09:55)
[2021-04-11] MEDS: valACYclovir HCL 500 MG TAB PO SCH ×2 (09:59→20:25)
[2021-04-11] MEDS: LATANOPROST 0.005% OPHTH SOLN 2.5 ML OU SCH (20:28)
[2021-04-12] MEDS: LORazepam 2 MG TAB PO PRN ×2 (01:39→05:54)
[2021-04-12] MEDS: MORPHINE 10MG/0.5ML ORAL CONCENTRATE SOLUTION U/D SL PRN ×2 (01:39→10:03)
[2021-04-12] MEDS: IPRATROPIUM 0.5MG/ALBUTEROL 2.5MG INH SOL UD 3ML (DUONEB) INH PRN ×3 (01:39→07:12)
[2021-04-12 05:50] VITALS: BP 166/90
[2021-04-12] MEDS: MORPHINE 15 MG SA TAB PO SCH (06:02)
[2021-04-12] MEDS: FORMOTEROL FUMARATE 20 MCG/2 ML INHALATION SOLUTION (PERFOROMIST) INH SCH (07:12)
[2021-04-12] MEDS ORDERED: SCOP1PAT2 TOP (08:56)
[2021-04-12] MEDS ORDERED: NICO14PA TD (08:56)
[2021-04-12] MEDS ORDERED: MORP1SOL SL (08:56)
[2021-04-12] MEDS ORDERED: VALA500T5 PO (08:56)
[2021-04-12] MEDS ORDERED: BISA10SU PR (08:56)
[2021-04-12] MEDS ORDERED: LORA2TA PO (08:56)
[2021-04-12] MEDS ORDERED: MIRA1POW3 PO (08:56)
[2021-04-12] MEDS ORDERED: MORP15TASA PO (08:56)
[2021-04-12] MEDS: MIRALAX *UNIT DOSE* 17GM PACKET PO SCH (09:00)
[2021-04-12] MEDS: BISACODYL 10 MG SUPP PR SCH (09:00)
--- NOTE | 2021-04-12 09:06 | DS.PDOC ---
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 HISTORY OF PRESENT ILLNESS: 61 year old W with endstage COPD steroid dependent on chronic supplemental oxygen on palliative care, active smoker, HTN, osteoarthritis, and pulmonary hypertension who presented to the ED with chief complaint of worsening shortness of breath and lethargy without changes to her chronic wet cough with clear to white sputum per baseline, and no fevers or chills. In addition to her shortness of breath the patient also complained of back pain reporting pain in her "tail bone" and asking to be repositioned so that she can get more comfortable. HOSPITAL COURSE: In the ED the patient was hemodynamically stable but with acute on chronic hypoxemia requiring 5L from her baseline 2L to maintain a saturation above 89%. Studies were notable for a VBG that showed an elevated CO2 to 95% with a pH of 7.3 and PO2 of 160. She was alert and oriented but noticeably sleepy and the ED physician discussed BiPAP with her given her significant hypercarbia and developing somnolence and encephalopathy and she adamantly declined the mask. I also arrived and discussed BiPAP with her and the consequences of not correcting her worsening hypercarbia and she still refused it and was able to express that she understood that it likely meant that she could have respiratory arrest and as a result have cardiopulmonary arrest. I then offered her comfort measures to which she agreed with the understanding that my goal on admission would be to make her comfortable but not attempt to reverse any pathology. I proceeded to have this discussion with her Jann and son Enzo stewart who expressed understanding of her decision and Enzo made arrangements to make his way home from his home in [place]. Of note, she has a leukocytosis to 18.5, Hgb 15.7, platelets 346, na 137, K 4.2, Cr 0.5, lactate 1.6, troponin 0.06, proBNP 776, covid-19 negative, while CXR showed interstitial prominence and a previous seen 1cm RML nodule was noted. She was admitted for end stage COPD with acute exacerbation, possible CAP given the leukocytosis and worsening hypoxemia for comfort measures only. Hospice was consulted and is now being discharged to inpatient hospice. DISCHARGE MEDICATIONS: Please see below. ALLERGIES: Please see below. PHYSICAL EXAMINATION ON DISCHARGE: VITAL SIGNS: Please see below. GENERAL APPEARANCE: Awake, alert, oriented x 3. NAD, ill appearing. HEENT: Atraumatic, normocephalic. Eyes are nonicteric. Trachea is midline. Mucous membranes are pink and moist CARDIOVASCULAR: Tachycardic, regular rhythm, no noted murmurs LUNGS: Diminished breath sounds throughout with increased expiratory time. Dry crackles throughout lung hernandez. No wheezing. No rhonchi. ABDOMEN: Normoactive sounds, soft, nondistended.No rebound tenderness or guarding. EXTREMITIES: No lower extremity edema. WWP. 2+ DP pulses bilaterally NEUROLOGICAL: Awake, speech is clear, AOx3, weak but moves all extremities with at least 4/5 strength throughout LABORATORY DATA: Please see below. IMAGING: CXR: Lungs: COPD , interstitial prominence, 10 mm nodular density overlying the right mid lung field. Pleural spaces: Apical pleural thickening. No dependent pleural effusion. Heart/Mediastinum: No cardiomegaly. Bones/joints: Scoliosis and degenerative change. IMPRESSION: COPD , interstitial prominence, 10 mm nodular density overlying the right mid lung field. PROGNOSIS: Poor ACTIVITY: As tolerated DIET: Regular DISCHARGE PLAN: Hospice house DISPOSITION: Hospice house DISCHARGE INSTRUCTIONS: Being discharged to hospice house. COLLAR SEPARATOR ITEMS TO FOLLOWUP ON ON OUTPATIENT: COLLAR SEPARATOR DISCHARGE CONDITION: Stable TIME SPENT ON DISCHARGE: 46 minutes. Vital Signs/I&Os Vital Signs Date Time Temp Pulse Resp B/P (MAP) Pulse Ox O2 Delivery O2 Flow Rate FiO2 04/12/21 05:50 98.1 112 22 166/90 (115) 94 Nasal Cannula 5.0 I&O- Last 24 Hours up to 6 AM 04/12/21 06:00 Intake Total 225 ml Balance 225 ml Discharge Medications Scheduled Bisacodyl (Bisacodyl) 10 Mg Supp.rect, [address] DAILY Formoterol Fumarate (Perforomist) 20 Mcg/2 Ml Vial.neb, 2 ML INH BID, (Reported) MIX WITH BUDESONIDE Latanoprost (Xalatan) 0.005% 2.5ML Drops, 1 DROP OU QHS, (Reported) Morphine Sulfate (Morphine Sulfate ER) 15 Mg Tablet.er, 15 MG PO Q12H Polyethylene Glycol 3350 (Miralax) 17 Gm Powd.pack, 1 PKT PO BID Valacyclovir HCl (Valacyclovir) 500 Mg Tablet, 1,000 MG PO BID Scheduled PRN Ipratropium/Albuterol Sulfate (Combivent Respimat 20-100 Mcg) 4 Gm Mist.inhal, 1 PUFF INH QID PRN for SHORTNESS OF BREATH, (Reported) Ipratropium/Albuterol Sulfate (Iprat-Albut 0.5-3(2.5) mg/3 ml) 3 Ml Ampul.neb, 3 ML INH Q4H PRN for SHORTNESS OF BREATH, (Reported) Lorazepam (Lorazepam) 2 Mg Tablet, 2 MG PO Q2HP PRN for ANXIETY Morphine Sulfate (Morphine Sulfate Concentrate) 100 Mg/5 Ml Solution, 5 MG SL Q2HP PRN for PAIN Nicotine (Nicotine Patch) 14 Mg Patch.td24, 1 PATCH TD DAILYPRN PRN for NICOTINE WITHDRAWAL Scopolamine (Transderm-Scop) 1 Each Patch.td.3, 1 MG TOP Q3DP PRN for EXCESSIVE SECRETIONS Allergies Coded Allergies: SEASONAL ALLERGIES (Verified Allergy, Mild, 11/08/20) codeine (Verified Adverse Reaction, Unknown, abdominal pain/nausea/vomiting, 03/24/20) MICHELE CROSS MD Apr 12, 2021 09:06
[2021-04-12] MEDS: valACYclovir HCL 500 MG TAB PO SCH (10:02)
[2021-04-12] MEDS ORDERED: IPRA0.00 INH (15:48)
[2021-04-12] MEDS ORDERED: COMBAER6 INH (16:09)
[2021-04-12] MEDS ORDERED: PERF20NE2 INH (16:09)
[2021-04-12] MEDS ORDERED: BUDE2SUS3 INH (16:09)
[2021-04-12] MEDS ORDERED: VENTAER INH (16:09)
== END 2021-04-12 12:45 | disposition hospice, inpatient (51) | DRG 133 ==
LOC: M ED 05:33 → M ED INP 08:24 → ENRESERV 09:34 → M MSPAV 10:09
PROVIDERS: ADMIT Internal Medicine; ATTEND Internal Medicine
DX: J96.22 Acute and chronic respiratory failure with hypercapnia (principal); J18.9 Pneumonia, unspecified organism; I50.32 Chronic diastolic (congestive) heart failure; I27.20 Pulmonary hypertension, unspecified; Z99.81 Dependence on supplemental oxygen; J44.1 Chronic obstructive pulmonary disease with (acute) exacerbation; I11.0 Hypertensive heart disease with heart failure; M81.0 Age-related osteoporosis without current pathological fracture; E78.2 Mixed hyperlipidemia; E55.9 Vitamin D deficiency, unspecified; H40.9 Unspecified glaucoma; F17.200 Nicotine dependence, unspecified, uncomplicated; M19.90 Unspecified osteoarthritis, unspecified site; Z79.52 Long term (current) use of systemic steroids; Z79.899 Other long term (current) drug therapy; Z88.5 Allergy status to narcotic agent; Z66 Do not resuscitate; Z51.5 Encounter for palliative care; R91.8 Other nonspecific abnormal finding of lung field; J96.21 Acute and chronic respiratory failure with hypoxia